=== PATIENT | female | born 1930 | race Two or more races ===

== ENCOUNTER 2019-06-22 20:54 | Inpatient (IN) | payer MEDICARE, MEDICAID ==
[~2019-06-22] VITALS: Ht 160 cm; Wt 77.1 kg
[2019-06-22] MEDS ORDERED: ACETAMINOPHEN325 M1 ORAL (21:15)
[2019-06-22] MEDS ORDERED: BISACODYL5 MG ORAL (21:15)
[2019-06-22] MEDS ORDERED: SEROQUEL25 MG ORAL (21:15)
[2019-06-22] MEDS ORDERED: MILK OF MA400 MG/51 ORAL (21:15)
[2019-06-22] MEDS ORDERED: SERTRALINE HCL50 MG ORAL (21:15)
[2019-06-22] MEDS ORDERED: DULCOLAX10 MG RC (21:15)
[2019-06-22] MEDS ORDERED: LIDODERM700 M1 TOPIC (21:15)
[2019-06-22] MEDS ORDERED: ZOFRAN4 M3 ORAL (21:15)
[2019-06-22] MEDS ORDERED: METOPROLOL TART25 MG ORAL (21:15)
[2019-06-22] MEDS ORDERED: IBUPROFEN600 MG ORAL (21:15)
[2019-06-22] MEDS ORDERED: FLOMAX0.4 MG ORAL (21:15)
[2019-06-22] MEDS ORDERED: PERCOCET 10-321 EAC1 ORAL (21:15)
[2019-06-22] MEDS ORDERED: PEPCID AC20 M2 PO (21:15)
[2019-06-22] MEDS ORDERED: FLEET ENEMA133 ML RECTAL (21:15)
[2019-06-22] MEDS ORDERED: METHADONE HCL5 MG ORAL (21:15)
[2019-06-22] MEDS ORDERED: GABAPENTIN600 MG ORAL (21:15)
[2019-06-22] MEDS ORDERED: KEPPRA XR500 MG ORAL (21:15)
[2019-06-22] MEDS ORDERED: LEVOTHYROXINE125 MCG ORAL (21:15)
--- NOTE | 2019-06-22 21:28 | Emergency Room Report ---
History of Present Illness General Chief Complaint: General Complaint Source: Patient, Medical Record Present Illness HPI Patient presents with 3 weeks of intermittent symptoms. She says when she wakes up she feels pretty good but then starts feeling dizziness. She has pain in her neck that bothers her and she takes medication for that. She also complains of left lower quadrant abdominal pain with constipation due to taking pain medication. She also has dysuria. She is denying chest pain, shortness of breath. She says she feels dizzy and weak through the day. She does smoke cigarettes and has a chronic cough. Pain in her neck is rated 10/10. The pain in her abdomen is less. It is constant. History of schizophrenia and depression. No suicidal ideation. History of COPD. History of irritable bowel syndrome. Allergies: Coded Allergies: No Known Allergies (Unverified , 06/22/19) Patient History Past Medical History: see triage record Social History: Reports: smoking Social History Narrative From retirement facility. Patient has a POLST which states DNR Reviewed Nursing Documentation: PMH: Agreed; PSxH: Agreed Nursing Documentation-PMH Hx Hypertension: Yes Hx COPD: Yes Hx Gastrointestinal Problems: Yes - IBS History Of Psychiatric Problem: Yes - SCHIZO Review of Systems All Other Systems: negative except mentioned in HPI Physical Exam Vital Signs Date Time Temp Pulse Resp B/P (MAP) Pulse Ox O2 Delivery O2 Flow Rate FiO2 06/22/19 20:52 97.9 68 16 140/70 (93) 98 Nasal Cannula Sp02 EP Interpretation: reviewed, normal General Appearance: well appearing, no apparent distress, non-toxic, obese Head: normocephalic Eyes: bilateral eye normal inspection, bilateral eye PERRL, bilateral eye EOMI ENT: moist mucus membranes Neck: supple Respiratory: lungs clear, normal breath sounds, decreased breath sounds Cardiovascular #1: regular rate, rhythm Cardiovascular #2: 2+ radial (R) Gastrointestinal: normal inspection, normal bowel sounds, no mass, non- distended, no guarding, no rebound, tenderness Genitourinary: no CVA tenderness Musculoskeletal: back normal, gait/station normal, normal range of motion Neurologic: alert, grossly normal, oriented - X2 Psychiatric: mood/affect normal Skin: no rash Medical Decision Making Diagnostic Impression: Primary Impression: Failure to thrive Qualified Codes: R62.7 - Adult failure to thrive Additional Impressions: Dehydration Chronic pain Qualified Codes: G89.29 - Other chronic pain UTI (urinary tract infection) Qualified Codes: N30.00 - Acute cystitis without hematuria Bronchospasm COPD (chronic obstructive pulmonary disease) Qualified Codes: J44.9 - Chronic obstructive pulmonary disease, unspecified Schizophrenia Qualified Codes: F20.9 - Schizophrenia, unspecified ER Course Patient presents with several problems. Is complaining about abdominal pain. Differential includes small bowel obstruction, diverticulitis, urinary tract infection, pyelonephritis, aortic aneurysm, exacerbation of back pain amongst others. Patient will be evaluated with EKG, chest x-ray, abdominal film and labs. The patient will be treated with a breathing treatment and antiemetic and analgesics. The patient will receive IV hydration. EKG bradycardia rate 57 left axis deviation right bundle branch block no acute changes. Chest x-ray no infiltrates. Abdomen right upper quadrant clips increased stool load no obstruction. White count normal. H&H most likely high. CMP remarkable for elevated CO2 and BUN. Urinalysis with pyuria. Antibiotics begun for urinary tract infection. Patient improved with treatment however still feels nauseated and unable to tolerate oral intake. Patient admitted to medical floor Dr. Barreto. Laboratory Tests Test 06/22/19 21:40 06/23/19 00:00 White Blood Count 7.6 K/UL (4.8-10.8) Red Blood Count 4.19 M/UL (4.20-5.40) L Hemoglobin 14.2 G/DL (12.0-16.0) Hematocrit 42.8 % (37.0-47.0) Mean Corpuscular Volume 102 FL (80-99) H Mean Corpuscular Hemoglobin 33.8 PG (27.0-31.0) H Mean Corpuscular Hemoglobin Concent 33.2 G/DL (32.0-36.0) Red Cell Distribution Width 11.1 % (11.6-14.8) L Platelet Count 191 K/UL (150-450) Mean Platelet Volume 6.4 FL (6.5-10.1) L Neutrophils (%) (Auto) 69.8 % (45.0-75.0) Lymphocytes (%) (Auto) 17.6 % (20.0-45.0) L Monocytes (%) (Auto) 8.8 % (1.0-10.0) Eosinophils (%) (Auto) 2.9 % (0.0-3.0) Basophils (%) (Auto) 0.9 % (0.0-2.0) Prothrombin Time 10.0 SEC (9.30-11.50) Prothrombin Time INR 0.9 (0.9-1.1) PTT 26 SEC (23-33) Sodium Level 137 MMOL/L (136-145) Potassium Level 4.9 MMOL/L (3.5-5.1) Chloride Level 100 MMOL/L (98-107) Carbon Dioxide Level 33 MMOL/L (21-32) H Anion Gap 4 mmol/L (5-15) L Blood Urea Nitrogen 29 mg/dL (7-18) H Creatinine 0.9 MG/DL (0.55-1.30) Estimate Glomerular Filtration Rate mL/min (>60) Glucose Level 117 MG/DL (74-106) H Calcium Level 9.2 MG/DL (8.5-10.1) Magnesium Level 2.1 MG/DL (1.8-2.4) Total Bilirubin 0.2 MG/DL (0.2-1.0) Aspartate Amino Transferase (AST) 11 U/L (15-37) L Alanine Aminotransferase (ALT) 14 U/L (12-78) Alkaline Phosphatase 93 U/L (46-116) Total Creatine Kinase 50 U/L (26-308) Troponin I 0.000 ng/mL (0.000-0.056) Total Protein 7.7 G/DL (6.4-8.2) Albumin 3.6 G/DL (3.4-5.0) Globulin 4.1 g/dL Albumin/Globulin Ratio 0.9 (1.0-2.7) L Lipase 129 U/L (73-393) Urine Color Pale yellow Urine Appearance Clear Urine pH 7 (4.5-8.0) Urine Specific [place] 1.010 (1.005-1.035) Urine Protein Negative (NEGATIVE) Urine Glucose (UA) Negative (NEGATIVE) Urine Ketones Negative (NEGATIVE) Urine Blood Negative (NEGATIVE) Urine Nitrite Positive (NEGATIVE) H Urine Bilirubin Negative (NEGATIVE) Urine Urobilinogen Normal MG/DL (0.0-1.0) Urine Leukocyte Esterase 1+ (NEGATIVE) H Urine RBC 0 /HPF (0 - 2) Urine WBC 5-10 /HPF (0 - 2) H Urine Squamous Epithelial Cells Few /LPF (NONE/OCC) Urine Bacteria Many /HPF (NONE) H EKG Diagnostic Results Rate: normal, bradycardiac Rhythm: NSR ST Segments: no acute changes - Left axis deviation right bundle branch block Rhythm Strip Diag. Results EP Interpretation: yes Rhythm: NSR, no PVC's, no ectopy Chest X-Ray Diagnostic Results Chest X-Ray Diagnostic Results : Chest X-Ray Ordered: Yes # of Views/Limited/Complete: 1 View Indication: Chest Pain EP Interpretation: Yes Interpretation: no consolidation, no effusion, no pneumothorax Impression: No acute disease Electronically Signed by: Electronically signed by Thomas Peralta MD Other X-Ray Diagnostic Results Other X-Ray Diagnostic Results : X-Ray ordered: Abdomen # of Views/Limited Vs Complete: 2 View Indication: Pain EP Interpretation: Yes Interpretation: nonspecific bowel gas, no sbo, other - Right upper quadrant clips and increased stool load Impression: Other Electronically Signed by: Electronically signed by Thomas Peralta MD Last Vital Signs Date Time Temp Pulse Resp B/P (MAP) Pulse Ox O2 Delivery O2 Flow Rate FiO2 06/23/19 02:30 98.0 56 17 138/60 (86) 99 06/23/19 02:30 Nasal Cannula 2.0 06/23/19 02:00 21 Status: improved Disposition: ADMITTED INPATIENT Condition: Serious Thomas Peralta MD Jun 22, 2019 21:28
[2019-06-22] MEDS ORDERED: Morphine Sulfate 4mg/ml Inj (IV USE ONLY) IVP ONE ×2 (21:30→23:00)
[2019-06-22] MEDS ORDERED: Albuterol/Ipratropium 3ml neb HHN ONE (21:30)
--- NOTE | 2019-06-22 22:00 | NUR ---
ED Nurse Note: Recieved pt BIBA dfrom SNF with c/o decreased appetite and failure to thrive, pt is in bed awake, alert and oriented x 4, pt states for past 2 weeks she has been complaining of weakness and intermittent dizziness, pt states she cant eat due to being dizzy and nausea, denies cp, sob and is able to ambulate, pt assisted to gowning and cardiac monitorign, iv line placed and labs drawn.
[2019-06-22 22:09] LABS: BASOPHILS % (AUTO) 0.9 % (0.0-2.0); EOSINOPHILS % (AUTO) 2.9 % (0.0-3.0); HEMATOCRIT 42.8 % (37.0-47.0); HEMOGLOBIN 14.2 G/DL (12.0-16.0); LYMPHOCYTES % (AUTO) 17.6 % (20.0-45.0); MEAN CORPUSCULAR VOLUME 102 FL (80-99); MONOCYTES % (AUTO) 8.8 % (1.0-10.0); NEUTROPHILS % (AUTO) 69.8 % (45.0-75.0); PLATELET COUNT 191 K/UL (150-450); RED BLOOD COUNT 4.19 M/UL (4.20-5.40); RED CELL DISTRIBUTION WIDTH 11.1 % (11.6-14.8); WHITE BLOOD COUNT 7.6 K/UL (4.8-10.8)
[2019-06-22 22:19] LABS: INR 0.9 (0.9-1.1)
[2019-06-22 22:20] LABS: ANION GAP 4 mmol/L (5-15); BLOOD UREA NITROGEN 29 mg/dL (7-18); CALCIUM 9.2 MG/DL (8.5-10.1); CARBON DIOXIDE 33 MMOL/L (21-32); CHLORIDE 100 MMOL/L (98-107); CREATININE 0.9 MG/DL (0.55-1.30); POTASSIUM 4.9 MMOL/L (3.5-5.1); SODIUM 137 MMOL/L (136-145)
[2019-06-22 22:24] LABS: ALANINE AMINOTRANSFERASE 14 U/L (12-78); ALBUMIN 3.6 G/DL (3.4-5.0); ALBUMIN/GLOBULIN RATIO 0.9 (1.0-2.7); ALKALINE PHOSPHATASE 93 U/L (46-116); ASPARTATE AMINO TRANSFERASE 11 U/L (15-37); BILIRUBIN,TOTAL 0.2 MG/DL (0.2-1.0); CREATINE KINASE 50 U/L (26-308)
[2019-06-22 23:00] VITALS: BP 144/76
[2019-06-22] MEDS ORDERED: LORazepam Inj 2mg/ml 1ml IV ONE (23:00)
[2019-06-23] VITALS (8 sets, daily range): BP systolic 123–186; BP diastolic 53–95
--- NOTE | 2019-06-23 | NUR ---
ED Nurse Note: MEDS GIVEN FOR PAIN EFFECTIVE, PT SLEEPING, AROUSES EASILY TO VERBAL STIMULI, DENIES CP OR ANY PAIN, PT ASSISTED WITH BEDPAN, UN-SUCCESSFUL, STATES HAS URGE BUT CAN NOT GO, PT STRAIGHT CATH FOR URINE SAMPLE, TOLERATED WELL, NO BLEEDING OR RESISITANCE NOTED, MD AWARE, WILL CONTINUE TO CLOSELY MONITOR AND PREPARE FOR HOSPITAL ADMISSION.
[2019-06-23 00:32] LABS: APPEARANCE,URINE CLEAR; BILIRUBIN, URINE NEGATIVE (NEGATIVE); COLOR,URINE PALE YELLOW; GLUCOSE, URINE (UA) NEGATIVE (NEGATIVE); KETONES,URINE NEGATIVE (NEGATIVE); LEUKOCYTE ESTERASE ,URINE 1+ (NEGATIVE); NITRITE,URINE POSITIVE (NEGATIVE); PH,URINE 7 (4.5-8.0); PROTEIN,URINE NEGATIVE (NEGATIVE); UROBILINOGEN,URINE NORMAL MG/DL (0.0-1.0)
--- NOTE | 2019-06-23 01:35 | NUR ---
ED Nurse Note: PT HAS ROOM FOR ADMISSION, REPORT CALLED TO FLOOR NURSE RAJINDER LEYVA, PT RESTING QUIETLY IN BED, IV SITE PATENT WITH ROCEPHIN INFUSING VIA PUMP, PT DENIES PAIN, NO SOB OR LABORED BREATHING, NOTED, PT GBEING TAKEN TO UNIT VIA GURNEY WITH [facility], NAD NOTED DURING PT TRANSPORT.
[2019-06-23] MEDS ORDERED: cefTRIAXone 1 GM in D5W 55 ML IVPB ONE (01:45)
--- NOTE | 2019-06-23 02:30 | NUR ---
NURSE NOTES: Patient admitted from ED aox4. On o2 via NC. Belongings verified at bedside, patient with ledezma and credit card and cellphone but patient refused to put them in the safe for safekeeping. Explained to patient responsibility and liability; still continues to refuse. Belongings signed by patient. Oriented to new room and unit. Ceftriaxone continues to infuse from ED. Call light provided. Will monitor.
[2019-06-23] MEDS ORDERED: HUMULIN N100 UNIT/4 SQ (02:46)
[2019-06-23] MEDS ORDERED: PERCOCET 10-321 EAC1 ORAL (02:46)
[2019-06-23] MEDS ORDERED: FLEET ENEMA133 ML RECTAL (02:46)
[2019-06-23] MEDS ORDERED: DOCUSATE SODIU250 MG ORAL (02:46)
[2019-06-23] MEDS ORDERED: PEPTO-BISM525 MG/15 PO (02:46)
[2019-06-23] MEDS ORDERED: SYNTHROID25 MCG ORAL (02:46)
--- NOTE | 2019-06-23 03:12 | NUR ---
NURSE NOTES: Dr. Barreto paged for admission orders. Addendum: 06/23/19 at 0344 by AUTUMN PALOMARES RN RN 2nd call placed to Dr. Barreto's exchange for admission orders. Addendum: 06/23/19 at 2690 by AUTUMN PALOMARES RN RN 3rd call placed to Dr. Barreto's exchange. Awaiting call back.
--- NOTE | 2019-06-23 04:55 | NUR ---
NURSE NOTES: Received partial admission orders from Dr. Barreto. Per Dr. aBrreto, contact Dr. Hendrix for the rest. Left message to Dr. Hendrix for further orders.
[2019-06-23] MEDS ORDERED: Fleet's Enema 133ml RECTAL PRN (05:00)
[2019-06-23] MEDS ORDERED: Milk of Magnesia 30ml Ud ORAL PRN (05:00)
[2019-06-23] MEDS ORDERED: Bismuth Subsalicylate 30ml ORAL PRN (05:00)
[2019-06-23] MEDS ORDERED: Morphine Sulfate 2mg/ml Inj(IV/IM USE ONLY) IVP PRN (05:00)
[2019-06-23] MEDS: Levothyroxine 25mcg tab ORAL SCH (06:25)
[2019-06-23] MEDS: NovoLOG Insulin Flexpen SUBQ SCH ×5 (06:26→21:00)
--- NOTE | 2019-06-23 07:34 | NUR ---
HAND-OFF: Report given to Jerilyn CALVILLO.
--- NOTE | 2019-06-23 07:40 | NUR ---
NURSE NOTES: Patient received in stable condition, sleeping in bed. No signs of apparent distress observed. Bed locked in lowest position, call light placed within reach. Will continue to monitor.
[2019-06-23] MEDS: Metoprolol 25mg tab ORAL SCH ×2 (08:51→17:20)
[2019-06-23] MEDS: Docusate 250mg cap ORAL SCH ×2 (08:51→17:19)
[2019-06-23] MEDS: Sertraline 50mg tab ORAL SCH (08:52)
[2019-06-23] MEDS: Tamsulosin 0.4mg cap ORAL SCH ×2 (08:52→17:19)
[2019-06-23 08:58] LABS: ANION GAP 6 mmol/L (5-15); BLOOD UREA NITROGEN 24 mg/dL (7-18); CALCIUM 9.3 MG/DL (8.5-10.1); CARBON DIOXIDE 29 MMOL/L (21-32); CHLORIDE 104 MMOL/L (98-107); CREATININE 0.8 MG/DL (0.55-1.30); SODIUM 139 MMOL/L (136-145)
[2019-06-23 09:10] LABS: BASOPHILS % (AUTO) 0.8 % (0.0-2.0); EOSINOPHILS % (AUTO) 2.1 % (0.0-3.0); HEMATOCRIT 40.9 % (37.0-47.0); HEMOGLOBIN 13.8 G/DL (12.0-16.0); LYMPHOCYTES % (AUTO) 11.3 % (20.0-45.0); MEAN CORPUSCULAR VOLUME 102 FL (80-99); MONOCYTES % (AUTO) 7.2 % (1.0-10.0); NEUTROPHILS % (AUTO) 78.7 % (45.0-75.0); PLATELET COUNT 169 K/UL (150-450); RED BLOOD COUNT 4.01 M/UL (4.20-5.40); RED CELL DISTRIBUTION WIDTH 11.4 % (11.6-14.8); WHITE BLOOD COUNT 9.5 K/UL (4.8-10.8)
--- NOTE | 2019-06-23 11:16 | Diagnostic Imaging Report ---
Indication: Chest and abdominal pain Comparison: None A single view chest radiograph was obtained. Findings: There is suggestion of mild bronchial wall thickening. There is no consolidation or evidence of pneumonia. The left hemidiaphragm is slightly elevated. Bones are osteopenic. Heart size is normal. IMPRESSION: No acute findings. Bronchitis suspected. Osteopenia
--- NOTE | 2019-06-23 11:17 | Diagnostic Imaging Report ---
Indication: Abdominal pain Comparison: None Single view of the abdomen obtained Findings: There is a moderate amount of fecal retention within the colon. Bowel gas pattern is nonspecific. There are cholecystectomy clips in the right upper quadrant of the abdomen. The bones are osteopenic. There are moderate degenerative changes of the thoracic and lumbar spine characterized by narrowing of intervertebral discs, endplate and facet sclerosis and osteophytes. IMPRESSION: No acute findings. Moderate colonic stool retention.
--- NOTE | 2019-06-23 11:31 | GI Initial Consult Note ---
History of Present Illness General Date patient seen: Jun 23, 2019 Time patient seen: 12:09 Reason for Hospitalization: General Complaint Referring physician: RICKY FORD Reason for Consultation: ABDOMINAL PAIN Present Illness HPI Patient presents with 3 weeks of intermittent symptoms. She says when she wakes up she feels pretty good but then starts feeling dizziness. She has pain in her neck that bothers her and she takes medication for that. She also complains of left lower quadrant abdominal pain with constipation due to taking pain medication. She also has dysuria. She is denying chest pain, shortness of breath. She says she feels dizzy and weak through the day. She does smoke cigarettes and has a chronic cough. Pain in her neck is rated 10/10. The pain in her abdomen is less. It is constant. History of schizophrenia and depression. No suicidal ideation. History of COPD. History of irritable bowel syndrome. GI consulted for abdominal pain. ROS limited at this time, patient refusing to answer questions. Patient states she wants her pain medication. Patient was seen, awake alert no apparent distress. KUB shows stool within the colon. Labs reviewed; no leukocytosis, no anemia, no transaminitis. Unknown history of endoscopic colonoscopy at this time. Home Meds Reported Medications Oxycodone HCl/Acetaminophen (Percocet 10-325 mg Tablet) 1 Each Tablet, 1 TAB ORAL QID PRN for For Pain, #10 TAB 0 Refills 06/23/19 Bismuth Subsalicylate (PEPTO-BISMOL) 525 Mg/15 Ml Oral.susp, 525 MG PO Q1HR PRN for upset stomach, ML 06/23/19 Na Phos,M-B/Na Phos,Di-Ba* (FLEET ENEMA*) 133 Ml Enema, 133 ML RECTAL DAILY PRN for Constipation, ML 0 Refills 06/23/19 Levothyroxine Sodium* (SYNTHROID*) 25 Mcg Tablet, 25 MCG ORAL DAILY, TAB Take in the morning on an empty stomach, at least 30 minutes before food. 06/23/19 Docusate Sodium* (DOCUSATE SODIUM*) 250 Mg Capsule, 250 MG ORAL TWICE A DAY, CAP 06/23/19 NPH, Human Insulin Isophane (Humulin N Kwikpen) 100 Unit/1 Ml Insuln.pen, UNIT SQ AC+HS, EA 06/23/19 Ibuprofen* (MOTRIN*) 600 Mg Tablet, 600 MG ORAL Q6H PRN for Moderate Pain (Pain Scale 4-6), #20 TAB 0 Refills 06/22/19 Oxycodone HCl/Acetaminophen (Percocet 10-325 mg Tablet) 1 Each Tablet, 1 TAB ORAL Q4H PRN for Breakthrough Pain, #10 TAB 0 Refills 06/22/19 Acetaminophen* (ACETAMINOPHEN 325MG TABLET*) 325 Mg Tablet, 650 MG ORAL Q4H PRN for Mild Pain/Temp > 100.5, TAB 06/22/19 Bisacodyl (DULCOLAX) 10 Mg Supp.rect, 10 MG RC DAILY PRN for Constipation, SUPP 06/22/19 Magnesium Hydroxide* (MILK OF MAGNESIA*) 400 Mg/5 Ml Oral.susp, 30 ML ORAL DAILY PRN for Constipation, ML 06/22/19 Ondansetron* (ZOFRAN*) 4 Mg Tablet, 4 MG ORAL Q8HR PRN for Nausea & Vomiting, TAB 06/22/19 Lidocaine Patch* (Lidoderm Patch*) 1 Each Adh..patch, 1 PATCH TOPIC DAILY, #7 PATCH 0 Refills Patch(es) may remain in place for up to 12 hours in any 24-hour period. Apply to lower back 06/22/19 Levetiracetam (KEPPRA XR) 500 Mg Tab.er.24h, 500 MG ORAL Q12HR, #30 TAB 0 Refills 06/22/19 Metoprolol Tartrate* (METOPROLOL TARTRATE*) 25 Mg Tablet, 25 MG ORAL BID, TAB BID with meals Hold if SBP<110 or HR<60 06/22/19 Famotidine (PEPCID AC) 20 Mg Tablet, 20 MG PO HS, TAB 06/22/19 Methadone Hcl* (METHADONE*) 5 Mg Tablet, 5 MG ORAL Q12HR, #3 TAB 0 Refills 06/22/19 Tamsulosin HCl (Flomax) 0.4 Mg Cap.er.24h, 0.4 MG ORAL BID, CAP 06/22/19 Sertraline Hcl* (ZOLOFT*) 50 Mg Tablet, 50 MG ORAL DAILY, TAB 06/22/19 Gabapentin* (GABAPENTIN*) 600 Mg Tablet, 600 MG ORAL Q8HR, TAB 06/22/19 Quetiapine Fumarate* (SEROQUEL*) 25 Mg Tablet, 50 MG ORAL TWICE A DAY, TAB 06/22/19 Bisacodyl* (DULCOLAX*) 5 Mg Tablet.dr, 5 MG ORAL DAILY PRN for Constipation, # 10 TAB 0 Refills 06/22/19 Med list reviewed/reconciled: Yes Allergies: Coded Allergies: No Known Allergies (Unverified , 06/22/19) Patient History Limited by: other - refusing to answer questions History Provided By: Patient, Medical Record Review of Systems All Other Systems: limited Physical Exam Vital Signs Date Time Temp Pulse Resp B/P (MAP) Pulse Ox O2 Delivery O2 Flow Rate FiO2 06/22/19 20:52 97.9 68 16 140/70 (93) 98 Nasal Cannula 06/22/19 21:41 21 06/23/19 02:30 2.0 Sp02 EP Interpretation: reviewed, normal Labs Laboratory Tests Test 06/22/19 21:40 06/23/19 00:00 06/23/19 08:10 White Blood Count 7.6 K/UL (4.8-10.8) 9.5 K/UL (4.8-10.8) Red Blood Count 4.19 M/UL (4.20-5.40) L 4.01 M/UL (4.20-5.40) L Hemoglobin 14.2 G/DL (12.0-16.0) 13.8 G/DL (12.0-16.0) Hematocrit 42.8 % (37.0-47.0) 40.9 % (37.0-47.0) Mean Corpuscular Volume 102 FL (80-99) H 102 FL (80-99) H Mean Corpuscular Hemoglobin 33.8 PG (27.0-31.0) H 34.5 PG (27.0-31.0) H Mean Corpuscular Hemoglobin Concent 33.2 G/DL (32.0-36.0) 33.8 G/DL (32.0-36.0) Red Cell Distribution Width 11.1 % (11.6-14.8) L 11.4 % (11.6-14.8) L Platelet Count 191 K/UL (150-450) 169 K/UL (150-450) Mean Platelet Volume 6.4 FL (6.5-10.1) L 6.0 FL (6.5-10.1) L Neutrophils (%) (Auto) 69.8 % (45.0-75.0) 78.7 % (45.0-75.0) H Lymphocytes (%) (Auto) 17.6 % (20.0-45.0) L 11.3 % (20.0-45.0) L Monocytes (%) (Auto) 8.8 % (1.0-10.0) 7.2 % (1.0-10.0) Eosinophils (%) (Auto) 2.9 % (0.0-3.0) 2.1 % (0.0-3.0) Basophils (%) (Auto) 0.9 % (0.0-2.0) 0.8 % (0.0-2.0) Prothrombin Time 10.0 SEC (9.30-11.50) Prothromb Time International Ratio 0.9 (0.9-1.1) Activated Partial Thromboplast Time 26 SEC (23-33) Sodium Level 137 MMOL/L (136-145) 139 MMOL/L (136-145) Potassium Level 4.9 MMOL/L (3.5-5.1) 5.0 MMOL/L (3.5-5.1) Chloride Level 100 MMOL/L (98-107) 104 MMOL/L (98-107) Carbon Dioxide Level 33 MMOL/L (21-32) H 29 MMOL/L (21-32) Anion Gap 4 mmol/L (5-15) L 6 mmol/L (5-15) Blood Urea Nitrogen 29 mg/dL (7-18) H 24 mg/dL (7-18) H Creatinine 0.9 MG/DL (0.55-1.30) 0.8 MG/DL (0.55-1.30) Estimat Glomerular Filtration Rate mL/min (>60) mL/min (>60) Glucose Level 117 MG/DL (74-106) H 118 MG/DL (74-106) H Calcium Level 9.2 MG/DL (8.5-10.1) 9.3 MG/DL (8.5-10.1) Magnesium Level 2.1 MG/DL (1.8-2.4) Total Bilirubin 0.2 MG/DL (0.2-1.0) Aspartate Amino Transf (AST/SGOT) 11 U/L (15-37) L Alanine Aminotransferase (ALT/SGPT) 14 U/L (12-78) Alkaline Phosphatase 93 U/L (46-116) Total Creatine Kinase 50 U/L (26-308) Troponin I 0.000 ng/mL (0.000-0.056) Total Protein 7.7 G/DL (6.4-8.2) Albumin 3.6 G/DL (3.4-5.0) Globulin 4.1 g/dL Albumin/Globulin Ratio 0.9 (1.0-2.7) L Lipase 129 U/L (73-393) Urine Color Pale yellow Urine Appearance Clear Urine pH 7 (4.5-8.0) Urine Specific [place] 1.010 (1.005-1.035) Urine Protein Negative (NEGATIVE) Urine Glucose (UA) Negative (NEGATIVE) Urine Ketones Negative (NEGATIVE) Urine Blood Negative (NEGATIVE) Urine Nitrite Positive (NEGATIVE) H Urine Bilirubin Negative (NEGATIVE) Urine Urobilinogen Normal MG/DL (0.0-1.0) Urine Leukocyte Esterase 1+ (NEGATIVE) H Urine RBC 0 /HPF (0 - 2) Urine WBC 5-10 /HPF (0 - 2) H Urine Squamous Epithelial Cells Few /LPF (NONE/OCC) Urine Bacteria Many /HPF (NONE) H General Appearance: well appearing, no apparent distress, alert Head: normocephalic EENT: PERRL/EOMI, normal ENT inspection Neck: supple Respiratory: normal breath sounds, no respiratory distress Cardiovascular: normal rate Gastrointestinal: normal inspection, non tender, soft, normal bowel sounds, non -distended Rectal: deferred Genitourinary: no CVA tenderness Musculoskeletal: normal inspection, back normal Neurologic: normal inspection, alert, oriented x3, responsive Psychiatric: normal inspection, judgement/insight normal, memory normal Skin: normal inspection, normal color, no rash, warm/dry, palpation normal, well hydrated Lymphatic: normal inspection, no adenopathy Current Medications Current Medications Medications (Trade) Dose Ordered Sig/Nay Route PRN Reason Start Time Stop Time Status Last Admin Dose Admin Acetaminophen (Tylenol) 650 mg Q4H PRN ORAL Mild Pain/Temp > 100.5 06/23/19 05:00 07/23/19 04:59 Bisacodyl (Dulcolax) 5 mg DAILY PRN ORAL Constipation 06/23/19 05:00 07/23/19 04:59 Bisacodyl (Dulcolax) 10 mg DAILY PRN RECTAL Constipation 06/23/19 05:00 07/23/19 04:59 Bismuth Subsalicylate (Pepto-Bismol) 30 ml Q1H PRN ORAL upset stomach 06/23/19 06:30 07/23/19 04:59 Dextrose (Dextrose 50%) 25 ml Q30M PRN IV Hypoglycemia 06/23/19 06:15 07/23/19 06:14 Dextrose (Dextrose 50%) 50 ml Q30M PRN IV Hypoglycemia 06/23/19 06:15 07/23/19 06:14 Docusate Sodium (Colace) 250 mg TWICE A DAY ORAL 06/23/19 09:00 07/23/19 08:59 06/23/19 08:51 Famotidine (Pepcid) 20 mg QHS ORAL 06/23/19 21:00 07/23/19 20:59 Gabapentin (Neurontin) 600 mg Q12HR ORAL 06/23/19 09:00 07/23/19 05:59 06/23/19 08:51 Ibuprofen (Motrin) 600 mg Q6H PRN ORAL Moderate Pain (Pain Scale 4-6) 06/23/19 05:00 07/23/19 04:59 Insulin Aspart (NovoLOG) BEFORE MEALS AND HS SUBQ 06/23/19 06:30 07/23/19 06:29 Levetiracetam (Keppra) 500 mg Q12HR ORAL 06/23/19 09:00 07/23/19 08:59 06/23/19 08:52 Levothyroxine Sodium (Synthroid) 25 mcg ACBREAKFAST ORAL 06/23/19 06:30 07/23/19 06:29 06/23/19 06:25 Lidocaine (Lidoderm 5% PATCH) 1 patch DAILY TDERMAL 06/23/19 09:00 07/23/19 08:59 06/23/19 08:52 Magnesium Hydroxide (Mom) 30 ml DAILY PRN ORAL Constipation 06/23/19 05:00 07/23/19 04:59 Methadone HCl (Methadone HCl) 5 mg Q12HR ORAL 06/23/19 09:00 06/30/19 08:59 06/23/19 08:52 Metoprolol Tartrate (Lopressor) 25 mg BID ORAL 06/23/19 09:00 07/23/19 08:59 06/23/19 08:51 Morphine Sulfate (Morphine Sulfate) 2 mg Q4H PRN IVP Severe Pain (Pain Scale 7-10) 06/23/19 05:00 06/30/19 04:59 Ondansetron HCl (Zofran) 4 mg Q8H PRN ORAL Nausea & Vomiting 06/23/19 05:00 07/23/19 04:59 Oxycodone/ Acetaminophen (Percocet 10/325) 1 tab Q4H PRN ORAL Breakthrough Pain 06/23/19 05:00 06/30/19 04:59 06/23/19 09:47 Oxycodone/ Acetaminophen (Percocet 10/325) 1 tab QID PRN ORAL Severe Pain (Pain Scale 7-10) 06/23/19 05:30 06/30/19 05:29 Quetiapine Fumarate (SEROquel) 50 mg TWICE A DAY ORAL 06/23/19 09:00 07/23/19 08:59 06/23/19 08:51 Sertraline HCl (Zoloft) 50 mg DAILY ORAL 06/23/19 09:00 07/23/19 08:59 06/23/19 08:52 Sodium Phosphate (Fleet's Sodium Phosl Enema) 133 ml DAILY PRN RECTAL Constipation 06/23/19 05:00 07/23/19 04:59 Tamsulosin HCl (Flomax) 0.4 mg BID ORAL 06/23/19 09:00 07/23/19 08:59 06/23/19 08:52 GI: Plan Problems: (1) Abdominal pain (2) Constipation (3) Therapeutic opioid-induced constipation (OIC) (4) Schizophrenia (5) Chronic pain Plan Advance diet as tolerated Pain management Begin bowel regimen of Colace plus MiraLAX Consider Senokot if has persistent constipation PPI Zofran as needed Follow labs Patient may benefit from a non formulary opioid induced constipation medication as an outpatient such as Movantik or Relistor. Discussed with Dr. Rangel. Thank you for this patient referral, we will follow. The patient was seen and examined at bedside and all new and available data was reviewed in the patients chart. I agree with the above findings, impression and plan. (Patient seen earlier today. Signature stamp does not reflect patient encounter time.). - MD Teena VerduzcoHonorhealth Deer Valley Medical CenterMeñoVishal ZAMZAM Jun 23, 2019 11:31
--- NOTE | 2019-06-23 11:58 | NUR ---
RD ASSESSMENT & RECOMMENDATIONS SEE CARE ACTIVITY FOR COMPLETE ASSESSMENT DAILY ESTIMATED NEEDS: Needs based on Cardiac, DM 58.5kg adj 25-30 kcals/kg 8759-4725 total kcals 1-1.5 g protein/kg 59-88 g total protein 20-25 mL/kg [id number] total fluid mLs NUTRITION DIAGNOSIS: Suspected chewing or swallowing difficulty r/t dysphagia as evidenced by pt on [facility] soft chopped texture diet CURRENT DIET: CCHO MED, chopped PO DIET RECOMMENDATIONS: Cardiac/ CCHO LOW diet (texture per SOYBEAN GROWER) ADDITIONAL RECOMMENDATIONS: 1) SOYBEAN GROWER eval for appropriate texture 2) W<75% intake, rec Glucerna 1 tetra cristal BID in b/w meals 3) Consider Kcal count for eval 4) A1C for eval 5) Calibrated bed scale wt
--- NOTE | 2019-06-23 12:08 | Consultation ---
History of Present Illness General Date patient seen: Jun 23, 2019 Chief Complaint: General Complaint Reason for Consultation: inpatient management Present Illness HPI 89 year old female with history of schizophrenia and depression, COPD. irritable bowel syndrome presented to ER with cc of dizziness, pain in her neck, She also complains of left lower quadrant abdominal pain with constipation due to taking pain medication. She also has dysuria. She says she feels dizzy and weak through the day. She does smoke cigarettes and has a chronic cough. She is denying chest pain, shortness of breath. She is admitted for further management. Allergies: Coded Allergies: No Known Allergies (Unverified , 06/22/19) Medication History Scheduled Docusate Sodium* (Docusate Sodium*), 250 MG ORAL TWICE A DAY, (Reported) Famotidine (Pepcid Ac), 20 MG PO HS, (Reported) Gabapentin* (Gabapentin*), 600 MG ORAL Q8HR, (Reported) Levetiracetam (Keppra Xr), 500 MG ORAL Q12HR, (Reported) Levothyroxine Sodium* (Synthroid*), 25 MCG ORAL DAILY, (Reported) Lidocaine Patch* (Lidoderm Patch*), 1 PATCH TOPIC DAILY, (Reported) Methadone Hcl* (Methadone*), 5 MG ORAL Q12HR, (Reported) Metoprolol Tartrate* (Metoprolol Tartrate*), 25 MG ORAL BID, (Reported) NPH, Human Insulin Isophane (Humulin N Kwikpen), UNIT SQ AC+HS, (Reported) Quetiapine Fumarate* (Seroquel*), 50 MG ORAL TWICE A DAY, (Reported) Sertraline Hcl* (Zoloft*), 50 MG ORAL DAILY, (Reported) Tamsulosin HCl (Flomax), 0.4 MG ORAL BID, (Reported) Scheduled PRN Acetaminophen* (Acetaminophen 325MG Tablet*), 650 MG ORAL Q4H PRN for Mild Pain/ Temp > 100.5, (Reported) Bisacodyl (Dulcolax), 10 MG RC DAILY PRN for Constipation, (Reported) Bisacodyl* (Dulcolax*), 5 MG ORAL DAILY PRN for Constipation, (Reported) Bismuth Subsalicylate (Pepto-Bismol), 525 MG PO Q1HR PRN for upset stomach, ( Reported) Ibuprofen* (Motrin*), 600 MG ORAL Q6H PRN for Moderate Pain (Pain Scale 4-6), ( Reported) Magnesium Hydroxide* (Milk Of Magnesia*), 30 ML ORAL DAILY PRN for Constipation, (Reported) Na Phos,M-B/Na Phos,Di-Ba* (Fleet Enema*), 133 ML RECTAL DAILY PRN for Constipation, (Reported) Ondansetron* (Zofran*), 4 MG ORAL Q8HR PRN for Nausea & Vomiting, (Reported) Oxycodone HCl/Acetaminophen (Percocet 10-325 mg Tablet), 1 TAB ORAL Q4H PRN for Breakthrough Pain, (Reported) Oxycodone HCl/Acetaminophen (Percocet 10-325 mg Tablet), 1 TAB ORAL QID PRN for For Pain, (Reported) Patient History Healthcare decision maker Resuscitation status Advanced Directive on File Past Medical/Surgical History Past Medical/Surgical History: (1) Hypothyroidism (2) Chronic pain (3) COPD (chronic obstructive pulmonary disease) Review of Systems All Other Systems: negative except mentioned in HPI Physical Exam General Appearance: WD/WN Lines, tubes and drains: peripheral HEENT: normocephalic, atraumatic, anicteric Neck: non-tender, normal alignment Respiratory/Chest: chest wall non-tender, no respiratory distress Abdomen: normal bowel sounds Genitourinary/Rectal: normal genital exam Last 24 Hour Vital Signs Date Time Temp Pulse Resp B/P (MAP) Pulse Ox O2 Delivery O2 Flow Rate FiO2 06/23/19 08:51 51 148/53 06/23/19 08:00 98.1 55 19 166/68 (100) 98 06/23/19 06:30 148/53 (84) 06/23/19 04:00 97.5 51 17 164/58 (93) 95 06/23/19 02:30 98.0 56 17 138/60 (86) 99 06/23/19 02:30 Nasal Cannula 2.0 06/23/19 02:00 98.5 56 18 123/54 98 Room Air 21 06/23/19 00:30 98.5 56 18 123/54 98 Room Air 21 06/22/19 23:00 98.5 57 18 144/76 98 Room Air 21 9/16/19 22:48 97.8 06/22/19 22:48 97.8 06/22/19 21:54 57 18 98 Room Air 21 06/22/19 21:45 57 18 Room Air 21 06/22/19 21:43 57 18 97 06/22/19 21:41 57 18 97 Room Air 21 06/22/19 20:52 97.9 68 16 140/70 (93) 98 Nasal Cannula Intake and Output 06/22/19 06/23/19 19:00 07:00 Intake Total 100 ml Output Total 200 ml Balance -100 ml Intake Oral 100 ml Output Urine Total 200 ml # Voids 3 Laboratory Tests Test 06/22/19 21:40 06/23/19 00:00 06/23/19 08:10 White Blood Count 7.6 K/UL (4.8-10.8) 9.5 K/UL (4.8-10.8) Red Blood Count 4.19 M/UL (4.20-5.40) L 4.01 M/UL (4.20-5.40) L Hemoglobin 14.2 G/DL (12.0-16.0) 13.8 G/DL (12.0-16.0) Hematocrit 42.8 % (37.0-47.0) 40.9 % (37.0-47.0) Mean Corpuscular Volume 102 FL (80-99) H 102 FL (80-99) H Mean Corpuscular Hemoglobin 33.8 PG (27.0-31.0) H 34.5 PG (27.0-31.0) H Mean Corpuscular Hemoglobin Concent 33.2 G/DL (32.0-36.0) 33.8 G/DL (32.0-36.0) Red Cell Distribution Width 11.1 % (11.6-14.8) L 11.4 % (11.6-14.8) L Platelet Count 191 K/UL (150-450) 169 K/UL (150-450) Mean Platelet Volume 6.4 FL (6.5-10.1) L 6.0 FL (6.5-10.1) L Neutrophils (%) (Auto) 69.8 % (45.0-75.0) 78.7 % (45.0-75.0) H Lymphocytes (%) (Auto) 17.6 % (20.0-45.0) L 11.3 % (20.0-45.0) L Monocytes (%) (Auto) 8.8 % (1.0-10.0) 7.2 % (1.0-10.0) Eosinophils (%) (Auto) 2.9 % (0.0-3.0) 2.1 % (0.0-3.0) Basophils (%) (Auto) 0.9 % (0.0-2.0) 0.8 % (0.0-2.0) Prothrombin Time 10.0 SEC (9.30-11.50) Prothromb Time International Ratio 0.9 (0.9-1.1) Activated Partial Thromboplast Time 26 SEC (23-33) Sodium Level 137 MMOL/L (136-145) 139 MMOL/L (136-145) Potassium Level 4.9 MMOL/L (3.5-5.1) 5.0 MMOL/L (3.5-5.1) Chloride Level 100 MMOL/L (98-107) 104 MMOL/L (98-107) Carbon Dioxide Level 33 MMOL/L (21-32) H 29 MMOL/L (21-32) Anion Gap 4 mmol/L (5-15) L 6 mmol/L (5-15) Blood Urea Nitrogen 29 mg/dL (7-18) H 24 mg/dL (7-18) H Creatinine 0.9 MG/DL (0.55-1.30) 0.8 MG/DL (0.55-1.30) Estimat Glomerular Filtration Rate mL/min (>60) mL/min (>60) Glucose Level 117 MG/DL (74-106) H 118 MG/DL (74-106) H Calcium Level 9.2 MG/DL (8.5-10.1) 9.3 MG/DL (8.5-10.1) Magnesium Level 2.1 MG/DL (1.8-2.4) Total Bilirubin 0.2 MG/DL (0.2-1.0) Aspartate Amino Transf (AST/SGOT) 11 U/L (15-37) L Alanine Aminotransferase (ALT/SGPT) 14 U/L (12-78) Alkaline Phosphatase 93 U/L (46-116) Total Creatine Kinase 50 U/L (26-308) Troponin I 0.000 ng/mL (0.000-0.056) Total Protein 7.7 G/DL (6.4-8.2) Albumin 3.6 G/DL (3.4-5.0) Globulin 4.1 g/dL Albumin/Globulin Ratio 0.9 (1.0-2.7) L Lipase 129 U/L (73-393) Urine Color Pale yellow Urine Appearance Clear Urine pH 7 (4.5-8.0) Urine Specific [place] 1.010 (1.005-1.035) Urine Protein Negative (NEGATIVE) Urine Glucose (UA) Negative (NEGATIVE) Urine Ketones Negative (NEGATIVE) Urine Blood Negative (NEGATIVE) Urine Nitrite Positive (NEGATIVE) H Urine Bilirubin Negative (NEGATIVE) Urine Urobilinogen Normal MG/DL (0.0-1.0) Urine Leukocyte Esterase 1+ (NEGATIVE) H Urine RBC 0 /HPF (0 - 2) Urine WBC 5-10 /HPF (0 - 2) H Urine Squamous Epithelial Cells Few /LPF (NONE/OCC) Urine Bacteria Many /HPF (NONE) H Height (Feet): 5 Height (Inches): 3.00 Weight (Pounds): 170 Medications Current Medications Medications (Trade) Dose Ordered Sig/Nay Route PRN Reason Start Time Stop Time Status Last Admin Dose Admin Acetaminophen (Tylenol) 650 mg Q4H PRN ORAL Mild Pain/Temp > 100.5 06/23/19 05:00 07/23/19 04:59 Bisacodyl (Dulcolax) 5 mg DAILY PRN ORAL Constipation 06/23/19 05:00 07/23/19 04:59 Bisacodyl (Dulcolax) 10 mg DAILY PRN RECTAL Constipation 06/23/19 05:00 07/23/19 04:59 Bismuth Subsalicylate (Pepto-Bismol) 30 ml Q1H PRN ORAL upset stomach 06/23/19 06:30 07/23/19 04:59 Dextrose (Dextrose 50%) 25 ml Q30M PRN IV Hypoglycemia 06/23/19 06:15 07/23/19 06:14 Dextrose (Dextrose 50%) 50 ml Q30M PRN IV Hypoglycemia 06/23/19 06:15 07/23/19 06:14 Docusate Sodium (Colace) 250 mg TWICE A DAY ORAL 06/23/19 09:00 07/23/19 08:59 06/23/19 08:51 Famotidine (Pepcid) 20 mg QHS ORAL 06/23/19 21:00 07/23/19 20:59 Gabapentin (Neurontin) 600 mg Q12HR ORAL 06/23/19 09:00 07/23/19 05:59 06/23/19 08:51 Ibuprofen (Motrin) 600 mg Q6H PRN ORAL Moderate Pain (Pain Scale 4-6) 06/23/19 05:00 07/23/19 04:59 Insulin Aspart (NovoLOG) BEFORE MEALS AND HS SUBQ 06/23/19 06:30 07/23/19 06:29 Levetiracetam (Keppra) 500 mg Q12HR ORAL 06/23/19 09:00 07/23/19 08:59 06/23/19 08:52 Levothyroxine Sodium (Synthroid) 25 mcg ACBREAKFAST ORAL 06/23/19 06:30 07/23/19 06:29 06/23/19 06:25 Lidocaine (Lidoderm 5% PATCH) 1 patch DAILY TDERMAL 06/23/19 09:00 07/23/19 08:59 06/23/19 08:52 Magnesium Hydroxide (Mom) 30 ml DAILY PRN ORAL Constipation 06/23/19 05:00 07/23/19 04:59 Methadone HCl (Methadone HCl) 5 mg Q12HR ORAL 06/23/19 09:00 06/30/19 08:59 06/23/19 08:52 Metoprolol Tartrate (Lopressor) 25 mg BID ORAL 06/23/19 09:00 07/23/19 08:59 06/23/19 08:51 Morphine Sulfate (Morphine Sulfate) 2 mg Q4H PRN IVP Severe Pain (Pain Scale 7-10) 06/23/19 05:00 06/30/19 04:59 Ondansetron HCl (Zofran) 4 mg Q8H PRN ORAL Nausea & Vomiting 06/23/19 05:00 07/23/19 04:59 Oxycodone/ Acetaminophen (Percocet 10/325) 1 tab Q4H PRN ORAL Breakthrough Pain 06/23/19 05:00 06/30/19 04:59 06/23/19 09:47 Oxycodone/ Acetaminophen (Percocet ) 1 tab QID PRN ORAL Severe Pain (Pain Scale 7-10) 06/23/19 05:30 06/30/19 05:29 Phenazopyridine HCl (Pyridium) 100 mg THREE TIMES A DAY ORAL 06/23/19 13:00 07/23/19 12:59 UNV Quetiapine Fumarate (SEROquel) 50 mg TWICE A DAY ORAL 06/23/19 09:00 07/23/19 08:59 06/23/19 08:51 Sertraline HCl (Zoloft) 50 mg DAILY ORAL 06/23/19 09:00 07/23/19 08:59 06/23/19 08:52 Sodium Phosphate (Fleet's Sodium Phosl Enema) 133 ml DAILY PRN RECTAL Constipation 06/23/19 05:00 07/23/19 04:59 Tamsulosin HCl (Flomax) 0.4 mg BID ORAL 06/23/19 09:00 07/23/19 08:59 06/23/19 08:52 Assessment/Plan Problem List: (1) UTI (urinary tract infection) ICD Codes: N39.0 - Urinary tract infection, site not specified SNOMED: 24943140 Qualifiers: Qualified Codes: N30.00 - Acute cystitis without hematuria (2) Dysuria ICD Codes: R30.0 - Dysuria SNOMED: 43663479 (3) COPD (chronic obstructive pulmonary disease) ICD Codes: J44.9 - Chronic obstructive pulmonary disease, unspecified SNOMED: 69122345 Qualifiers: Qualified Codes: J44.9 - Chronic obstructive pulmonary disease, unspecified (4) Failure to thrive (0-17) ICD Codes: R62.51 - Failure to thrive (0-17) SNOMED: 007151689 (5) Schizophrenia ICD Codes: F20.9 - Schizophrenia, unspecified SNOMED: 94288518 Qualifiers: Qualified Codes: F20.9 - Schizophrenia, unspecified (6) Chronic pain ICD Codes: G89.29 - Other chronic pain SNOMED: 49673919 Qualifiers: Qualified Codes: G89.29 - Other chronic pain (7) Failure to thrive SNOMED: 28450986 Qualifiers: Qualified Codes: R62.7 - Adult failure to thrive (8) Hypothyroidism ICD Codes: E03.9 - Hypothyroidism, unspecified SNOMED: 21793985 Assessment/Plan: respiratory treatment GI evaluation symptomatic treatment titrate fio2 to sat of 92% check urine cultures iv abx analgesics for dysuria Denys Hendrix MD Jun 23, 2019 12:08
--- NOTE | 2019-06-23 14:49 | Consultation ---
History of Present Illness General Chief Complaint: General Complaint Referring physician: RICKY FORD Reason for Consultation: ABDOMINAL PAIN Present Illness Allergies: Coded Allergies: No Known Allergies (Unverified , 06/22/19) Medication History Scheduled Docusate Sodium* (Docusate Sodium*), 250 MG ORAL TWICE A DAY, (Reported) Famotidine (Pepcid Ac), 20 MG PO HS, (Reported) Gabapentin* (Gabapentin*), 600 MG ORAL Q8HR, (Reported) Levetiracetam (Keppra Xr), 500 MG ORAL Q12HR, (Reported) Levothyroxine Sodium* (Synthroid*), 25 MCG ORAL DAILY, (Reported) Lidocaine Patch* (Lidoderm Patch*), 1 PATCH TOPIC DAILY, (Reported) Methadone Hcl* (Methadone*), 5 MG ORAL Q12HR, (Reported) Metoprolol Tartrate* (Metoprolol Tartrate*), 25 MG ORAL BID, (Reported) NPH, Human Insulin Isophane (Humulin N Kwikpen), UNIT SQ AC+HS, (Reported) Quetiapine Fumarate* (Seroquel*), 50 MG ORAL TWICE A DAY, (Reported) Sertraline Hcl* (Zoloft*), 50 MG ORAL DAILY, (Reported) Tamsulosin HCl (Flomax), 0.4 MG ORAL BID, (Reported) Scheduled PRN Acetaminophen* (Acetaminophen 325MG Tablet*), 650 MG ORAL Q4H PRN for Mild Pain/ Temp > 100.5, (Reported) Bisacodyl (Dulcolax), 10 MG RC DAILY PRN for Constipation, (Reported) Bisacodyl* (Dulcolax*), 5 MG ORAL DAILY PRN for Constipation, (Reported) Bismuth Subsalicylate (Pepto-Bismol), 525 MG PO Q1HR PRN for upset stomach, ( Reported) Ibuprofen* (Motrin*), 600 MG ORAL Q6H PRN for Moderate Pain (Pain Scale 4-6), ( Reported) Magnesium Hydroxide* (Milk Of Magnesia*), 30 ML ORAL DAILY PRN for Constipation, (Reported) Na Phos,M-B/Na Phos,Di-Ba* (Fleet Enema*), 133 ML RECTAL DAILY PRN for Constipation, (Reported) Ondansetron* (Zofran*), 4 MG ORAL Q8HR PRN for Nausea & Vomiting, (Reported) Oxycodone HCl/Acetaminophen (Percocet 10-325 mg Tablet), 1 TAB ORAL Q4H PRN for Breakthrough Pain, (Reported) Oxycodone HCl/Acetaminophen (Percocet 10-325 mg Tablet), 1 TAB ORAL QID PRN for For Pain, (Reported) Patient History Healthcare decision maker Resuscitation status Advanced Directive on File Physical Exam Last 24 Hour Vital Signs Date Time Temp Pulse Resp B/P (MAP) Pulse Ox O2 Delivery O2 Flow Rate FiO2 06/23/19 12:00 98.9 57 18 186/68 (107) 94 06/23/19 09:00 Nasal Cannula 2.0 06/23/19 08:51 51 148/53 06/23/19 08:00 98.1 55 19 166/68 (100) 98 06/23/19 06:30 148/53 (84) 06/23/19 04:00 97.5 51 17 164/58 (93) 95 06/23/19 02:30 98.0 56 17 138/60 (86) 99 06/23/19 02:30 Nasal Cannula 2.0 06/23/19 02:00 98.5 56 18 123/54 98 Room Air 21 06/23/19 00:30 98.5 56 18 123/54 98 Room Air 21 06/22/19 23:00 98.5 57 18 144/76 98 Room Air 21 06/22/19 22:48 97.8 06/22/19 22:48 97.8 06/22/19 21:54 57 18 98 Room Air 21 06/22/19 21:45 57 18 Room Air 21 06/22/19 21:43 57 18 97 06/22/19 21:41 57 18 97 Room Air 21 06/22/19 20:52 97.9 68 16 140/70 (93) 98 Nasal Cannula Intake and Output 06/22/19 06/23/19 19:00 07:00 Intake Total 100 ml Output Total 200 ml Balance -100 ml Intake Oral 100 ml Output Urine Total 200 ml # Voids 3 Laboratory Tests Test 06/22/19 21:40 06/23/19 00:00 06/23/19 08:10 White Blood Count 7.6 K/UL (4.8-10.8) 9.5 K/UL (4.8-10.8) Red Blood Count 4.19 M/UL (4.20-5.40) L 4.01 M/UL (4.20-5.40) L Hemoglobin 14.2 G/DL (12.0-16.0) 13.8 G/DL (12.0-16.0) Hematocrit 42.8 % (37.0-47.0) 40.9 % (37.0-47.0) Mean Corpuscular Volume 102 FL (80-99) H 102 FL (80-99) H Mean Corpuscular Hemoglobin 33.8 PG (27.0-31.0) H 34.5 PG (27.0-31.0) H Mean Corpuscular Hemoglobin Concent 33.2 G/DL (32.0-36.0) 33.8 G/DL (32.0-36.0) Red Cell Distribution Width 11.1 % (11.6-14.8) L 11.4 % (11.6-14.8) L Platelet Count 191 K/UL (150-450) 169 K/UL (150-450) Mean Platelet Volume 6.4 FL (6.5-10.1) L 6.0 FL (6.5-10.1) L Neutrophils (%) (Auto) 69.8 % (45.0-75.0) 78.7 % (45.0-75.0) H Lymphocytes (%) (Auto) 17.6 % (20.0-45.0) L 11.3 % (20.0-45.0) L Monocytes (%) (Auto) 8.8 % (1.0-10.0) 7.2 % (1.0-10.0) Eosinophils (%) (Auto) 2.9 % (0.0-3.0) 2.1 % (0.0-3.0) Basophils (%) (Auto) 0.9 % (0.0-2.0) 0.8 % (0.0-2.0) Prothrombin Time 10.0 SEC (9.30-11.50) Prothromb Time International Ratio 0.9 (0.9-1.1) Activated Partial Thromboplast Time 26 SEC (23-33) Sodium Level 137 MMOL/L (136-145) 139 MMOL/L (136-145) Potassium Level 4.9 MMOL/L (3.5-5.1) 5.0 MMOL/L (3.5-5.1) Chloride Level 100 MMOL/L (98-107) 104 MMOL/L (98-107) Carbon Dioxide Level 33 MMOL/L (21-32) H 29 MMOL/L (21-32) Anion Gap 4 mmol/L (5-15) L 6 mmol/L (5-15) Blood Urea Nitrogen 29 mg/dL (7-18) H 24 mg/dL (7-18) H Creatinine 0.9 MG/DL (0.55-1.30) 0.8 MG/DL (0.55-1.30) Estimat Glomerular Filtration Rate mL/min (>60) mL/min (>60) Glucose Level 117 MG/DL (74-106) H 118 MG/DL (74-106) H Calcium Level 9.2 MG/DL (8.5-10.1) 9.3 MG/DL (8.5-10.1) Magnesium Level 2.1 MG/DL (1.8-2.4) Total Bilirubin 0.2 MG/DL (0.2-1.0) Aspartate Amino Transf (AST/SGOT) 11 U/L (15-37) L Alanine Aminotransferase (ALT/SGPT) 14 U/L (12-78) Alkaline Phosphatase 93 U/L (46-116) Total Creatine Kinase 50 U/L (26-308) Troponin I 0.000 ng/mL (0.000-0.056) Total Protein 7.7 G/DL (6.4-8.2) Albumin 3.6 G/DL (3.4-5.0) Globulin 4.1 g/dL Albumin/Globulin Ratio 0.9 (1.0-2.7) L Lipase 129 U/L (73-393) Urine Color Pale yellow Urine Appearance Clear Urine pH 7 (4.5-8.0) Urine Specific [place] 1.010 (1.005-1.035) Urine Protein Negative (NEGATIVE) Urine Glucose (UA) Negative (NEGATIVE) Urine Ketones Negative (NEGATIVE) Urine Blood Negative (NEGATIVE) Urine Nitrite Positive (NEGATIVE) H Urine Bilirubin Negative (NEGATIVE) Urine Urobilinogen Normal MG/DL (0.0-1.0) Urine Leukocyte Esterase 1+ (NEGATIVE) H Urine RBC 0 /HPF (0 - 2) Urine WBC 5-10 /HPF (0 - 2) H Urine Squamous Epithelial Cells Few /LPF (NONE/OCC) Urine Bacteria Many /HPF (NONE) H Height (Feet): 5 Height (Inches): 3.00 Weight (Pounds): 170 Medications Current Medications Medications (Trade) Dose Ordered Sig/Nay Route PRN Reason Start Time Stop Time Status Last Admin Dose Admin Acetaminophen (Tylenol) 650 mg Q4H PRN ORAL Mild Pain/Temp > 100.5 06/23/19 05:00 07/23/19 04:59 Bisacodyl (Dulcolax) 5 mg DAILY PRN ORAL Constipation 06/23/19 05:00 07/23/19 04:59 Bisacodyl (Dulcolax) 10 mg DAILY PRN RECTAL Constipation 06/23/19 05:00 07/23/19 04:59 Bismuth Subsalicylate (Pepto-Bismol) 30 ml Q1H PRN ORAL upset stomach 06/23/19 06:30 07/23/19 04:59 Ceftriaxone Sodium 1 gm/ Dextrose 55 ml @ 110 mls/hr Q24H IVPB 06/23/19 22:00 06/30/19 21:59 Dextrose (Dextrose 50%) 25 ml Q30M PRN IV Hypoglycemia 06/23/19 06:15 07/23/19 06:14 Dextrose (Dextrose 50%) 50 ml Q30M PRN IV Hypoglycemia 06/23/19 06:15 07/23/19 06:14 Docusate Sodium (Colace) 250 mg TWICE A DAY ORAL 06/23/19 09:00 07/23/19 08:59 06/23/19 08:51 Famotidine (Pepcid) 20 mg QHS ORAL 06/23/19 21:00 07/23/19 20:59 Gabapentin (Neurontin) 600 mg Q12HR ORAL 06/23/19 09:00 07/23/19 05:59 06/23/19 08:51 Ibuprofen (Motrin) 600 mg Q6H PRN ORAL Moderate Pain (Pain Scale 4-6) 06/23/19 05:00 07/23/19 04:59 Insulin Aspart (NovoLOG) BEFORE MEALS AND HS SUBQ 06/23/19 06:30 07/23/19 06:29 Levetiracetam (Keppra) 500 mg Q12HR ORAL 06/23/19 09:00 07/23/19 08:59 06/23/19 08:52 Levothyroxine Sodium (Synthroid) 25 mcg ACBREAKFAST ORAL 06/23/19 06:30 07/23/19 06:29 06/23/19 06:25 Lidocaine (Lidoderm 5% PATCH) 1 patch DAILY TDERMAL 06/23/19 09:00 07/23/19 08:59 06/23/19 08:52 Magnesium Hydroxide (Mom) 30 ml DAILY PRN ORAL Constipation 06/23/19 05:00 07/23/19 04:59 Methadone HCl (Methadone HCl) 5 mg Q12HR ORAL 06/23/19 09:00 06/30/19 08:59 06/23/19 08:52 Metoprolol Tartrate (Lopressor) 25 mg BID ORAL 06/23/19 09:00 07/23/19 08:59 06/23/19 08:51 Morphine Sulfate (Morphine Sulfate) 2 mg Q4H PRN IVP Severe Pain (Pain Scale 7-10) 06/23/19 05:00 06/30/19 04:59 Ondansetron HCl (Zofran) 4 mg Q8H PRN ORAL Nausea & Vomiting 06/23/19 05:00 07/23/19 04:59 Oxycodone/ Acetaminophen (Percocet 10/325) 1 tab Q4H PRN ORAL Breakthrough Pain 06/23/19 05:00 06/30/19 04:59 06/23/19 09:47 Oxycodone/ Acetaminophen (Percocet 10/325) 1 tab QID PRN ORAL Severe Pain (Pain Scale 7-10) 06/23/19 05:30 06/30/19 05:29 Phenazopyridine HCl (Pyridium) 100 mg THREE TIMES A DAY ORAL 06/23/19 13:00 07/23/19 12:59 06/23/19 13:48 Quetiapine Fumarate (SEROquel) 50 mg TWICE A DAY ORAL 06/23/19 09:00 07/23/19 08:59 06/23/19 08:51 Sertraline HCl (Zoloft) 50 mg DAILY ORAL 06/23/19 09:00 07/23/19 08:59 06/23/19 08:52 Sodium Phosphate (Fleet's Sodium Phosl Enema) 133 ml DAILY PRN RECTAL Constipation 06/23/19 05:00 07/23/19 04:59 Tamsulosin HCl (Flomax) 0.4 mg BID ORAL 06/23/19 09:00 07/23/19 08:59 06/23/19 08:52 Assessment/Plan Assessment/Plan: Hematology Consultaiton Reason for Hospitalization: abd pain Referring physician: RICKY FORD Reason for Consultation: Rule out malignancy, macrocytosis DOS: 06/23/19 ID Patient presents with 3 weeks of intermittent symptoms. She says when she wakes up she feels pretty good but then starts feeling dizziness. She has pain in her neck that bothers her and she takes medication for that. She also complains of left lower quadrant abdominal pain with constipation due to taking pain medication. She also has dysuria. She is denying chest pain, shortness of breath. She says she feels dizzy and weak through the day. She does smoke cigarettes and has a chronic cough. Pain in her neck is rated 10/10. The pain in her abdomen is less. It is constant. Noted to have weakness and fatigue, was asked to eval for FTT, r/o malignancy. Gi evaluating as well. Past Medical hx History of schizophrenia and depression. No suicidal ideation. History of COPD. History of irritable bowel syndrome. Home Meds Reported Medications Oxycodone HCl/Acetaminophen (Percocet 10-325 mg Tablet) 1 Each Tablet, 1 TAB ORAL QID PRN for For Pain, #10 TAB 0 Refills 06/23/19 Bismuth Subsalicylate (PEPTO-BISMOL) 525 Mg/15 Ml Oral.susp, 525 MG PO Q1HR PRN for upset stomach, ML 06/23/19 Na Phos,M-B/Na Phos,Di-Ba* (FLEET ENEMA*) 133 Ml Enema, 133 ML RECTAL DAILY PRN for Constipation, ML 0 Refills 06/23/19 Levothyroxine Sodium* (SYNTHROID*) 25 Mcg Tablet, 25 MCG ORAL DAILY, TAB Take in the morning on an empty stomach, at least 30 minutes before food. 06/23/19 Docusate Sodium* (DOCUSATE SODIUM*) 250 Mg Capsule, 250 MG ORAL TWICE A DAY, CAP 06/23/19 NPH, Human Insulin Isophane (Humulin N Kwikpen) 100 Unit/1 Ml Insuln.pen, UNIT SQ AC+HS, EA 06/23/19 Ibuprofen* (MOTRIN*) 600 Mg Tablet, 600 MG ORAL Q6H PRN for Moderate Pain (Pain Scale 4-6), #20 TAB 0 Refills 06/22/19 Oxycodone HCl/Acetaminophen (Percocet 10-325 mg Tablet) 1 Each Tablet, 1 TAB ORAL Q4H PRN for Breakthrough Pain, #10 TAB 0 Refills 06/22/19 Acetaminophen* (ACETAMINOPHEN 325MG TABLET*) 325 Mg Tablet, 650 MG ORAL Q4H PRN for Mild Pain/Temp > 100.5, TAB 06/22/19 Bisacodyl (DULCOLAX) 10 Mg Supp.rect, 10 MG RC DAILY PRN for Constipation, SUPP 06/22/19 Magnesium Hydroxide* (MILK OF MAGNESIA*) 400 Mg/5 Ml Oral.susp, 30 ML ORAL DAILY PRN for Constipation, ML 06/22/19 Ondansetron* (ZOFRAN*) 4 Mg Tablet, 4 MG ORAL Q8HR PRN for Nausea & Vomiting, TAB 06/22/19 Lidocaine Patch* (Lidoderm Patch*) 1 Each Adh..patch, 1 PATCH TOPIC DAILY, #7 PATCH 0 Refills Patch(es) may remain in place for up to 12 hours in any 24-hour period. Apply to lower back 06/22/19 Levetiracetam (KEPPRA XR) 500 Mg Tab.er.24h, 500 MG ORAL Q12HR, #30 TAB 0 Refills 06/22/19 Metoprolol Tartrate* (METOPROLOL TARTRATE*) 25 Mg Tablet, 25 MG ORAL BID, TAB BID with meals Hold if SBP<110 or HR<60 06/22/19 Famotidine (PEPCID AC) 20 Mg Tablet, 20 MG PO HS, TAB 06/22/19 Methadone Hcl* (METHADONE*) 5 Mg Tablet, 5 MG ORAL Q12HR, #3 TAB 0 Refills 06/22/19 Tamsulosin HCl (Flomax) 0.4 Mg Cap.er.24h, 0.4 MG ORAL BID, CAP 06/22/19 Sertraline Hcl* (ZOLOFT*) 50 Mg Tablet, 50 MG ORAL DAILY, TAB 06/22/19 Gabapentin* (GABAPENTIN*) 600 Mg Tablet, 600 MG ORAL Q8HR, TAB 06/22/19 Quetiapine Fumarate* (SEROQUEL*) 25 Mg Tablet, 50 MG ORAL TWICE A DAY, TAB 06/22/19 Bisacodyl* (DULCOLAX*) 5 Mg Tablet.dr, 5 MG ORAL DAILY PRN for Constipation, # 10 TAB 0 Refills 06/22/19 Med list reviewed/reconciled: Yes Allergies: Coded Allergies: No Known Allergies (Unverified , 06/22/19) Patient History Limited by: other - refusing to answer questions History Provided By: Patient, Medical Record Review of Systems All Other Systems: limited PE: Vitals: reviewed, stable General Appearance: NAD HEENT: normocephalic, atraumatic Neck: non-tender, normal alignment Respiratory/Chest: normal breath sounds bilaterally Cardiovascular/Chest: normal peripheral pulses, normal rate Abdomen: normal bowel sounds, soft, nontender Extremities: normal range of motion Labs: noted Imaging: reviewed Assessment and recs: # Failure to thrive (FTT) - decreased bmi and low protein --> have ordered for cea level --> will obtain q3 day caloric counts --> may consider mirtazapine as appetite stimulant --> GI consult on a prn basis, as needed for endosc # Macrocytosis with a mcv currently 102-103 range --> obtain tsh, folate, b12 --> HOLD OFF bone marrow biopsy, can be related to meds as well # Abdominal pain -> kub does show constipation --> colace and miralax atc, senna as well # Therapeutic opioid-induced constipation (OIC) --> recommend she stop taking as large dose of opiates as she is taking # Schizophrenia --> psych eval prn # Chronic pain # Dvt ppx with scds The time of service does not reflect the actual time that the patient was actually seen Greatly appreciate consultation. Jose Medeiros MD Jun 23, 2019 14:49
[2019-06-23] MEDS: LORazepam 0.5mg tab ORAL PRN ×2 (15:51→22:38)
--- NOTE | 2019-06-23 18:10 | Cardiology Report ---
APPROVED REPORT EKG Measurement Heart [id number] Sinus bradycardia Left axis deviation Right bundle branch block Septal infarct, age undetermined Abnormal ECG
--- NOTE | 2019-06-23 18:15 | Consultation ---
DATE OF CONSULTATION: 06/23/2019 CONSULTING PHYSICIAN: Monique Morrell M.D. HISTORY OF PRESENT ILLNESS: This is an 89-year-old female, failure to thrive. She is very confused, disorganized female patient. She is complaining about pain. She says she has got a lot of pain in her vaginal area and she says this is making her very angry, irritable. She is irritable and mood labile. The reason why she was admitted to the hospital is because she came in complaining of dizziness, neck pain, lot of constipation, abdominal pain, but she also has overlying diagnosis of paranoid schizophrenia with acute exacerbation as well, so daily psychiatric consultation requested for this patient to be seen. MEDICAL HISTORY: History of COPD, hypertension, GI symptoms. ALLERGIES: No known drug allergies. PSYCHOTROPIC MEDICATIONS ON ADMISSION: The patient is currently on a psych med regimen consisting of Neurontin 600 mg q.12 hours. Also, Ativan 0.5 mg every 6 hours, Seroquel 50 mg twice a day, Zoloft 50 mg daily, but she is still very mood labile, irritable, agitated. SUBSTANCE ABUSE HISTORY: Denies. PAIN ASSESSMENT: 12/14. DEVELOPMENTAL PROBLEMS: Denies. FAMILY PSYCHIATRIC HISTORY: Denies. SOCIAL HISTORY: This patient is currently living in a [facility]. Financially supported by [employer] and Medicare. STRENGTHS: She is motivated to get better and she is healthy. WEAKNESSES: She is impulsive, minimal support system. MENTAL STATUS EXAMINATION: This is an 89-year-old female. Appearance is disheveled. Attitude, irritable and agitated. Affect, guarded and restricted. Intellect poor. Mood, depressed and anxious. Motor activity, psychomotor agitation. Attention span is poor. Orientation x2. Speech is pressured. Thought process, disorganized and illogical. Insight and judgment is poor. DIAGNOSIS: Paranoid schizophrenia with acute exacerbation. PLAN: For this patient, treat her with psychotropic medications to stabilize her mood. Provided with 20 minutes of cognitive behavior therapy to help identify automatic negative thoughts and help her convert those negative thoughts to more positive thoughts to reduce depression, anxiety, suicidality. Chart reviewed. Discussed with staff. Seen and assessed in her room. Monique Morrell M.D. DR: NEVAEH JOB#: [id number] CC:
--- NOTE | 2019-06-23 19:09 | NUR ---
HAND-OFF: Report given to Maria Dolores CALVILLO.
[2019-06-23] MEDS ORDERED: HUMULIN R100 UNIT/1 SUBQ (19:15)
--- NOTE | 2019-06-23 19:30 | NUR ---
NURSE NOTES: Patient received asleep, no acute distress at this time. On room air, no acute respiratory distress at this time. WIll monitor.
--- NOTE | 2019-06-23 21:09 | Cardiology Progress Note ---
Assessment/Plan Assessment/Plan The patient is seen and examined, full consult note is dictated. Objective Last 24 Hour Vital Signs Date Time Temp Pulse Resp B/P (MAP) Pulse Ox O2 Delivery O2 Flow Rate FiO2 06/23/19 17:20 71 149/95 06/23/19 16:00 98.0 71 19 149/95 (113) 95 06/23/19 12:00 98.9 57 18 186/68 (107) 94 06/23/19 09:00 Nasal Cannula 2.0 06/23/19 08:51 51 148/53 06/23/19 08:00 98.1 55 19 166/68 (100) 98 06/23/19 06:30 148/53 (84) 06/23/19 04:00 97.5 51 17 164/58 (93) 95 06/23/19 02:30 98.0 56 17 138/60 (86) 99 06/23/19 02:30 Nasal Cannula 2.0 06/23/19 02:00 98.5 56 18 123/54 98 Room Air 21 06/23/19 00:30 98.5 56 18 123/54 98 Room Air 21 06/22/19 23:00 98.5 57 18 144/76 98 Room Air 21 06/22/19 22:48 97.8 06/22/19 22:48 97.8 06/22/19 21:54 57 18 98 Room Air 21 06/22/19 21:45 57 18 Room Air 21 06/22/19 21:43 57 18 97 06/22/19 21:41 57 18 97 Room Air 21 Intake and Output 06/22/19 06/23/19 18:59 06:59 Intake Total 100 ml Output Total 200 ml Balance -100 ml Intake Oral 100 ml Output Urine Total 200 ml # Voids 3 Laboratory Tests Test 06/22/19 21:40 06/23/19 00:00 06/23/19 08:10 White Blood Count 7.6 K/UL (4.8-10.8) 9.5 K/UL (4.8-10.8) Red Blood Count 4.19 M/UL (4.20-5.40) L 4.01 M/UL (4.20-5.40) L Hemoglobin 14.2 G/DL (12.0-16.0) 13.8 G/DL (12.0-16.0) Hematocrit 42.8 % (37.0-47.0) 40.9 % (37.0-47.0) Mean Corpuscular Volume 102 FL (80-99) H 102 FL (80-99) H Mean Corpuscular Hemoglobin 33.8 PG (27.0-31.0) H 34.5 PG (27.0-31.0) H Mean Corpuscular Hemoglobin Concent 33.2 G/DL (32.0-36.0) 33.8 G/DL (32.0-36.0) Red Cell Distribution Width 11.1 % (11.6-14.8) L 11.4 % (11.6-14.8) L Platelet Count 191 K/UL (150-450) 169 K/UL (150-450) Mean Platelet Volume 6.4 FL (6.5-10.1) L 6.0 FL (6.5-10.1) L Neutrophils (%) (Auto) 69.8 % (45.0-75.0) 78.7 % (45.0-75.0) H Lymphocytes (%) (Auto) 17.6 % (20.0-45.0) L 11.3 % (20.0-45.0) L Monocytes (%) (Auto) 8.8 % (1.0-10.0) 7.2 % (1.0-10.0) Eosinophils (%) (Auto) 2.9 % (0.0-3.0) 2.1 % (0.0-3.0) Basophils (%) (Auto) 0.9 % (0.0-2.0) 0.8 % (0.0-2.0) Prothrombin Time 10.0 SEC (9.30-11.50) Prothromb Time International Ratio 0.9 (0.9-1.1) Activated Partial Thromboplast Time 26 SEC (23-33) Sodium Level 137 MMOL/L (136-145) 139 MMOL/L (136-145) Potassium Level 4.9 MMOL/L (3.5-5.1) 5.0 MMOL/L (3.5-5.1) Chloride Level 100 MMOL/L (98-107) 104 MMOL/L (98-107) Carbon Dioxide Level 33 MMOL/L (21-32) H 29 MMOL/L (21-32) Anion Gap 4 mmol/L (5-15) L 6 mmol/L (5-15) Blood Urea Nitrogen 29 mg/dL (7-18) H 24 mg/dL (7-18) H Creatinine 0.9 MG/DL (0.55-1.30) 0.8 MG/DL (0.55-1.30) Estimat Glomerular Filtration Rate mL/min (>60) mL/min (>60) Glucose Level 117 MG/DL (74-106) H 118 MG/DL (74-106) H Calcium Level 9.2 MG/DL (8.5-10.1) 9.3 MG/DL (8.5-10.1) Magnesium Level 2.1 MG/DL (1.8-2.4) Total Bilirubin 0.2 MG/DL (0.2-1.0) Aspartate Amino Transf (AST/SGOT) 11 U/L (15-37) L Alanine Aminotransferase (ALT/SGPT) 14 U/L (12-78) Alkaline Phosphatase 93 U/L (46-116) Total Creatine Kinase 50 U/L (26-308) Troponin I 0.000 ng/mL (0.000-0.056) Total Protein 7.7 G/DL (6.4-8.2) Albumin 3.6 G/DL (3.4-5.0) Globulin 4.1 g/dL Albumin/Globulin Ratio 0.9 (1.0-2.7) L Lipase 129 U/L (73-393) Urine Color Pale yellow Urine Appearance Clear Urine pH 7 (4.5-8.0) Urine Specific [place] 1.010 (1.005-1.035) Urine Protein Negative (NEGATIVE) Urine Glucose (UA) Negative (NEGATIVE) Urine Ketones Negative (NEGATIVE) Urine Blood Negative (NEGATIVE) Urine Nitrite Positive (NEGATIVE) H Urine Bilirubin Negative (NEGATIVE) Urine Urobilinogen Normal MG/DL (0.0-1.0) Urine Leukocyte Esterase 1+ (NEGATIVE) H Urine RBC 0 /HPF (0 - 2) Urine WBC 5-10 /HPF (0 - 2) H Urine Squamous Epithelial Cells Few /LPF (NONE/OCC) Urine Bacteria Many /HPF (NONE) H Carcinoembryonic Antigen Pending Vitamin B12 Level 512 PG/ML (193-986) Folate 24.5 NG/ML (8.6-58.9) Thyroid Stimulating Hormone (TSH) 1.325 uiU/mL (0.358-3.740) Cooper Gastelum MD Jun 23, 2019 21:09
[2019-06-23] MEDS: cefTRIAXone 1 GM in D5W 55 ML IVPB SCH (21:10)
[2019-06-23] MEDS: Bisacodyl EC 5mg tab ORAL PRN (21:11)
--- NOTE | 2019-06-23 23:00 | Consultation ---
DATE OF CONSULTATION: 06/23/2019 CARDIOLOGY CONSULTATION CONSULTING PHYSICIAN: Cooper Gastelum M.D. REFERRING PHYSICIAN: Ru Barreto D.O. REASON FOR CONSULTATION: Management of presyncope. HISTORY OF PRESENT ILLNESS: The patient is a very unfortunate 89-year-old lady, who presents with three weeks constellation of symptoms including dizziness and lightheadedness, abdominal pain as well as dysuria. The patient has history of irritable bowel syndrome and psychiatric disorder including schizophrenia and depression as well as history of chronic obstructive pulmonary disease. At the time of arrival to this facility, blood pressure was 140/70 mmHg and heart rate was 67. Initial laboratory finding included chemistry which showed evidence of elevated bicarbonate at 33 and also BUN and creatinine of 29 and 0.9 with the ratio of over 20. She was found to have for 5 to 10 wbc's in the urine with leukocyte esterase, diagnosed with the urinary tract infection. The patient's chest x-ray in the emergency department showed no acute cardiopulmonary disease. A 12-lead electrocardiogram was significant for sinus rhythm with left axis deviation, right bundle-branch block, but no acute ischemic features. The patient was admitted to Med/Surg unit with failure to thrive and presyncope due to hypovolemia as well as UTI. Cardiology consultation was made for hemodynamic management and assessment of presyncope. PAST MEDICAL HISTORY: 1. COPD. 2. Irritable bowel syndrome. 3. Schizophrenia. 4. Depression. 5. History of constipation. 6. Chronic cough. PAST SURGICAL HISTORY: None. MEDICATIONS: List of medication includes acetaminophen 650 mg q.4 h. p.r.n. pain and temperature above 100.5 degrees, bisacodyl 10 mg RC daily p.r.n. constipation, Dulcolax 10 mg daily p.r.n. constipation, Pepto-Bismol 525 mg q.1 hour as needed upset stomach, Colace 250 mg twice daily, Pepcid AC 20 mg nightly, gabapentin 600 mg q.8 hours, Motrin 600 mg q.6 hours as needed moderate pain, Humulin R subcutaneous sliding scale, Keppra 500 mg q.12 hours, Synthroid 25 mcg p.o. daily, lidocaine patch one patch topically daily, magnesium hydroxide 30 mL daily p.r.n. constipation, methadone 5 mg p.o. q.12 hours, metoprolol 25 mg twice daily, Fleet Enema 133 mL rectal daily p.r.n. constipation, Zofran 4 mg q.8 hours for nausea and vomiting, oxycodone-acetaminophen 10-325 mg one tablet every four hours as needed breakthrough pain, Seroquel 50 mg twice daily, Zoloft 50 mg daily, and tamsulosin Flomax 0.4 mg twice daily. SOCIAL HISTORY: Reports tobacco, but denies any alcohol or illicit drug use. REVIEW OF SYSTEMS: HEENT: Denies any headache, diplopia, or blurred vision. CONSTITUTIONAL: Denies any fever, chills, or night sweats. CARDIOVASCULAR: Denies any chest pain, shortness breath, PND, orthopnea, or leg swelling. PULMONARY: Complains of chronic cough, but no wheezing or hemoptysis. GASTROINTESTINAL: Complained of left lower quadrant abdominal pain with constipation. GENITOURINARY: Complaining of dysuria, but no frequency of urination. NEUROLOGICAL: Complains of dizziness and lightheadedness. No loss of consciousness. Denies any signs of lateralization. No prior history of stroke. PHYSICAL EXAMINATION: VITAL SIGNS: Blood pressure is 140/70, pulse 68, respirations 16, pulse oximetry 98% on nasal cannula, and temperature 97.9 degrees Fahrenheit. GENERAL: The patient is a very unfortunate 89-year-old female, in no apparent respiratory distress. Alert and oriented x4. Obese. HEENT: Atraumatic and normocephalic. Anicteric. Pupils are equal, round and reactive to light and accommodation. Extraocular muscles intact. NECK: JVP less than 5 cm. No carotid bruits. Carotid upstrokes 2+ bilaterally. CARDIOVASCULAR: Normal S1, S2. Regular rate and rhythm. No murmurs, gallops, or rubs. LUNGS: Diminished breath sounds. ABDOMEN: Soft, nontender, and nondistended. Obese. Positive bowel sounds. EXTREMITIES: No evidence of edema, clubbing, or cyanosis. LABORATORY FINDINGS: WBC is 7.6, hemoglobin 14.2, hematocrit 42.8, and platelet count 191,000. Sodium 137, potassium 4.9, chloride 100, bicarbonate 33, BUN 29, and creatinine 0.9. Glucose 117. Calcium is 9.2. Troponin I was 0. INR is 0.9. ASSESSMENT AND PLAN: The patient is a very unfortunate 89-year-old female, seen in Cardiology consultation. 1. Presyncope. I would like to consider hydration in view of the patient's chemistry. The patient will benefit from half normal saline. BUN and creatinine ratio over 20 is supportive of prerenal azotemia and hypovolemia. 2. Hypertensive crisis with systolic blood pressure of 186 mmHg at noon. I would like to continue metoprolol and would like to add amlodipine. I would like to discontinue nonsteroidal anti-inflammatory drugs. We will obtain 2-D echocardiography to assess LV systolic and diastolic function. 3. History of chronic obstructive pulmonary disease. 4. History of psychiatric disorder. I would like to thank Dr. Barreto for the courtesy of this consultation. Cooper Gastelum M.D. DR: BRIAN JOB#: [id number] CC:
--- NOTE | 2019-06-24 03:00 | History and Physical Report ---
DATE OF ADMISSION: 06/22/2019 DATE AND TIME SEEN: 06/23/2019 at 1 p.m. CONSULTANTS: 1. Monique Morrell M.D. 2. Renato Rangel M.D. 3. Denys Hendrix M.D. CHIEF COMPLAINT: Failure to thrive, COPD exacerbation. BRIEF HISTORY: This is an 89-year-old female from [facility], presented with above-mentioned diagnoses, admitted to the medical floor for further treatment. Currently, lethargic, sleepy in bed. REVIEW OF SYSTEMS: Unavailable. PAST MEDICAL HISTORY: COPD, diabetes, EDUARDO, weakness, osteoporosis, osteoarthritis, and schizophrenia. PAST SURGICAL HISTORY: Unknown. MEDICATIONS: Includes ceftriaxone, famotidine, , lidocaine, methadone, metoprolol, sertraline, , gabapentin, levothyroxine, insulin, oxycodone. ALLERGIES: Denies. SOCIAL HISTORY: No smoking. No alcohol. No intravenous drug abuse. FAMILY HISTORY: Noncontributory. PHYSICAL EXAMINATION: GENERAL: Lethargic in bed, not answering questions. VITAL SIGNS: Temperature is 98, pulse 57, respirations 18, blood pressure 186/68. CARDIOVASCULAR: No murmur. LUNGS: Poor air exchange. ABDOMEN: Bowel sounds distant. EXTREMITIES: No cyanosis, clubbing, edema. NEUROLOGIC: The patient is flaccid in bed, not following directions. ASSESSMENT: 1. Failure to thrive. 2. COPD. 3. Diabetes. 4. EDUARDO. 5. Weakness. 6. Hypertension. 7. Bradycardia. 8. Osteoporosis. 9. Osteoarthritis. 10. Schizophrenia. PLAN: 1. PT, dietary evaluation. 2. CBC, BMP in the morning. 3. Resume home medications. 4. Blood pressure, blood sugar control. 5. Cardiology evaluation by Dr. Gastelum. Ru Barreto D.O. DR: KATARZYNA JOB#: [id number] CC:
[2019-06-24 04:00] VITALS: BP 152/75
[2019-06-24] MEDS: LORazepam 0.5mg tab ORAL PRN ×2 (04:44→19:57)
[2019-06-24] MEDS: Levothyroxine 25mcg tab ORAL SCH (06:26)
[2019-06-24] MEDS: NovoLOG Insulin Flexpen SUBQ SCH ×4 (06:28→21:18)
[2019-06-24 07:06] LABS: BASOPHILS % (AUTO) 0.6 % (0.0-2.0); EOSINOPHILS % (AUTO) 2.3 % (0.0-3.0); HEMATOCRIT 40.7 % (37.0-47.0); HEMOGLOBIN 13.1 G/DL (12.0-16.0); LYMPHOCYTES % (AUTO) 19.6 % (20.0-45.0); MEAN CORPUSCULAR VOLUME 102 FL (80-99); MONOCYTES % (AUTO) 8.8 % (1.0-10.0); NEUTROPHILS % (AUTO) 68.7 % (45.0-75.0); PLATELET COUNT 178 K/UL (150-450); RED BLOOD COUNT 3.99 M/UL (4.20-5.40); RED CELL DISTRIBUTION WIDTH 11.9 % (11.6-14.8); WHITE BLOOD COUNT 8.1 K/UL (4.8-10.8)
[2019-06-24 07:11] LABS: ALANINE AMINOTRANSFERASE 11 U/L (12-78); ALBUMIN 3.1 G/DL (3.4-5.0); ALBUMIN/GLOBULIN RATIO 0.8 (1.0-2.7); ALKALINE PHOSPHATASE 78 U/L (46-116); ANION GAP 4 mmol/L (5-15); ASPARTATE AMINO TRANSFERASE 11 U/L (15-37); BILIRUBIN,TOTAL 0.2 MG/DL (0.2-1.0); BLOOD UREA NITROGEN 22 mg/dL (7-18); CARBON DIOXIDE 31 MMOL/L (21-32); CHLORIDE 103 MMOL/L (98-107); CREATININE 0.9 MG/DL (0.55-1.30); PHOSPHORUS 3.3 MG/DL (2.5-4.9); POTASSIUM 4.6 MMOL/L (3.5-5.1); SODIUM 138 MMOL/L (136-145)
--- NOTE | 2019-06-24 07:45 | NUR ---
HAND-OFF: Report given to Amparo CALVILLO.
--- NOTE | 2019-06-24 08:00 | NUR ---
NURSE NOTES: Patient awake and alert,eating breakfast,respirations unlabored.b ed alarm on,call light within reach.
[2019-06-24 08:22] VITALS: BP 136/51
[2019-06-24] MEDS: Docusate 250mg cap ORAL SCH (08:29)
[2019-06-24] MEDS: Tamsulosin 0.4mg cap ORAL SCH ×2 (08:30→17:58)
[2019-06-24] MEDS: Metoprolol 25mg tab ORAL SCH ×2 (08:30→17:56)
[2019-06-24] MEDS: Sertraline 50mg tab ORAL SCH (08:32)
--- NOTE | 2019-06-24 09:41 | Hematology/Onc Progress Note ---
Assessment/Plan Assessment/Plan Assessment and recs: # Failure to thrive (FTT) - decreased bmi and low protein --> have ordered for cea level PENDING --> will obtain q3 day caloric counts --> may consider mirtazapine as appetite stimulant --> GI consult on a prn basis, as needed for endosc --> psych eval as well # Macrocytosis with a mcv currently 102-103 range --> tsh, folate, b12--> are wnl --> HOLD OFF bone marrow biopsy, can be related to meds as well # Abdominal pain -> kub does show constipation --> colace and miralax atc, senna as well # Therapeutic opioid-induced constipation (OIC) --> recommend she stop taking as large dose of opiates as she is taking # Schizophrenia --> psych eval prn # Chronic pain # Dvt ppx with scds The time of service does not reflect the actual time that the patient was actually seen Greatly appreciate consultation. Subjective Constitutional: Denies: no symptoms, chills, fever, malaise, weakness, other HEENT: Denies: no symptoms, eye pain, blurred vision, tearing, double vision, ear pain, ear discharge, nose pain, nose congestion, throat pain, throat swelling, mouth pain, mouth swelling, other Cardiovascular: Denies: no symptoms, chest pain, edema, irregular heart rate, lightheadedness, palpitations, syncope, other Respiratory: Denies: no symptoms, cough, shortness of breath, SOB with excertion, SOB at rest, sputum, wheezing, other Gastrointestinal/Abdominal: Denies: no symptoms, abdomen distended, abdominal pain, black stools, tarry stools, blood in stool, constipated, diarrhea, difficulty swallowing, nausea, poor appetite, poor fluid intake, rectal bleeding , vomiting, other Genitourinary: Denies: no symptoms, burning, discharge, frequency, flank pain, hematuria, incontinence, pain, urgency, other Neurologic/Psychiatric: Denies: no symptoms, anxiety, depressed, emotional problems, headache, numbness, paresthesia, pre-existing deficit, seizure, tingling, tremors, weakness, other Endocrine: Denies: no symptoms, excessive sweating, flushing, intolerance to cold, intolerance to heat, increased hunger, increased thirst, increased urine, unexplained weight gain, unexplained weight loss, other Allergies: Coded Allergies: No Known Allergies (Unverified , 06/22/19) Subjective 06/24: no events, on ivf, no bleeding, no f/c Objective Objective Current Medications Medications (Trade) Dose Ordered Sig/Nay Route PRN Reason Start Time Stop Time Status Last Admin Dose Admin Acetaminophen (Tylenol) 650 mg Q4H PRN ORAL Mild Pain/Temp > 100.5 06/23/19 05:00 07/23/19 04:59 06/24/19 06:26 Amlodipine Besylate (Norvasc) 5 mg DAILY ORAL 06/24/19 09:00 07/24/19 08:59 06/24/19 08:31 Bisacodyl (Dulcolax) 5 mg DAILY PRN ORAL Constipation 06/23/19 05:00 07/23/19 04:59 06/23/19 21:11 Bisacodyl (Dulcolax) 10 mg DAILY PRN RECTAL Constipation 06/23/19 05:00 07/23/19 04:59 Bismuth Subsalicylate (Pepto-Bismol) 30 ml Q1H PRN ORAL upset stomach 06/23/19 06:30 07/23/19 04:59 Ceftriaxone Sodium 1 gm/ Dextrose 55 ml @ 110 mls/hr Q24H IVPB 06/23/19 22:00 06/30/19 21:59 06/23/19 21:10 Clonidine HCl (Catapres Tab) 0.1 mg QID PRN ORAL SBP ABOVE 160 06/23/19 21:25 07/23/19 21:24 Dextrose (Dextrose 50%) 25 ml Q30M PRN IV Hypoglycemia 06/23/19 06:15 07/23/19 06:14 Dextrose (Dextrose 50%) 50 ml Q30M PRN IV Hypoglycemia 06/23/19 06:15 07/23/19 06:14 Docusate Sodium (Colace) 250 mg TWICE A DAY ORAL 06/23/19 09:00 07/23/19 08:59 06/24/19 08:29 Famotidine (Pepcid) 20 mg QHS ORAL 06/23/19 21:00 07/23/19 20:59 06/23/19 20:40 Gabapentin (Neurontin) 600 mg Q12HR ORAL 06/23/19 09:00 07/23/19 05:59 06/24/19 08:31 Insulin Aspart (NovoLOG) BEFORE MEALS AND HS SUBQ 06/23/19 06:30 07/23/19 06:29 06/23/19 17:25 Levetiracetam (Keppra) 500 mg Q12HR ORAL 06/23/19 09:00 07/23/19 08:59 06/24/19 08:30 Levothyroxine Sodium (Synthroid) 25 mcg ACBREAKFAST ORAL 06/23/19 06:30 07/23/19 06:29 06/24/19 06:26 Lidocaine (Lidoderm 5% PATCH) 1 patch DAILY TDERMAL 06/23/19 09:00 07/23/19 08:59 06/24/19 08:32 Lorazepam (Ativan) 0.5 mg Q6H PRN ORAL For Anxiety 06/23/19 15:00 06/30/19 14:59 06/24/19 04:44 Magnesium Hydroxide (Mom) 30 ml DAILY PRN ORAL Constipation 06/23/19 05:00 07/23/19 04:59 Methadone HCl (Methadone HCl) 5 mg Q12HR ORAL 06/23/19 09:00 06/30/19 08:59 06/24/19 08:30 Metoprolol Tartrate (Lopressor) 25 mg BID ORAL 06/23/19 09:00 07/23/19 08:59 06/24/19 08:30 Morphine Sulfate (Morphine Sulfate) 2 mg Q4H PRN IVP Severe Pain (Pain Scale 7-10) 06/23/19 05:00 06/30/19 04:59 Ondansetron HCl (Zofran) 4 mg Q8H PRN ORAL Nausea & Vomiting 06/23/19 05:00 07/23/19 04:59 Oxycodone/ Acetaminophen (Percocet 10/325) 1 tab Q4H PRN ORAL Breakthrough Pain 06/23/19 05:00 06/30/19 04:59 06/24/19 01:37 Oxycodone/ Acetaminophen (Percocet 10/325) 1 tab QID PRN ORAL Severe Pain (Pain Scale 7-10) 06/23/19 05:30 06/30/19 05:29 06/24/19 03:42 Phenazopyridine HCl (Pyridium) 100 mg THREE TIMES A DAY ORAL 06/23/19 13:00 07/23/19 12:59 06/24/19 08:31 Quetiapine Fumarate (SEROquel) 50 mg TWICE A DAY ORAL 06/23/19 09:00 07/23/19 08:59 06/24/19 08:31 Sertraline HCl (Zoloft) 50 mg DAILY ORAL 06/23/19 09:00 07/23/19 08:59 06/24/19 08:32 Sodium Phosphate (Fleet's Sodium Phosl Enema) 133 ml DAILY PRN RECTAL Constipation 06/23/19 05:00 07/23/19 04:59 Tamsulosin HCl (Flomax) 0.4 mg BID ORAL 06/23/19 09:00 07/23/19 08:59 06/24/19 08:30 Last 24 Hour Vital Signs Date Time Temp Pulse Resp B/P (MAP) Pulse Ox O2 Delivery O2 Flow Rate FiO2 06/24/19 08:31 60 136/51 06/24/19 08:30 60 136/51 06/24/19 08:22 97.2 60 18 136/51 (79) 92 06/24/19 06:56 98.4 06/24/19 04:12 98.4 06/24/19 04:00 97.6 56 18 152/75 (100) 95 06/24/19 02:07 98.4 06/23/19 23:24 98.4 54 18 145/60 (88) 96 06/23/19 21:00 Room Air 06/23/19 17:20 71 149/95 06/23/19 16:00 98.0 71 19 149/95 (113) 95 06/23/19 12:00 98.9 57 18 186/68 (107) 94 06/23/19 09:00 Nasal Cannula 2.0 06/23/19 08:51 51 148/53 06/23/19 08:00 98.1 55 19 166/68 (100) 98 06/23/19 06:30 148/53 (84) 06/23/19 04:00 97.5 51 17 164/58 (93) 95 06/23/19 02:30 98.0 56 17 138/60 (86) 99 06/23/19 02:30 Nasal Cannula 2.0 06/23/19 02:00 98.5 56 18 123/54 98 Room Air 21 06/23/19 00:30 98.5 56 18 123/54 98 Room Air 21 06/22/19 23:00 98.5 57 18 144/76 98 Room Air 21 06/22/19 22:48 97.8 06/22/19 22:48 97.8 06/22/19 21:54 57 18 98 Room Air 21 06/22/19 21:45 57 18 Room Air 21 06/22/19 21:43 57 18 97 06/22/19 21:41 57 18 97 Room Air 21 06/22/19 20:52 97.9 68 16 140/70 (93) 98 Nasal Cannula Intake and Output 06/23/19 06/24/19 19:00 07:00 Intake Total 360 ml 655 ml Balance 360 ml 655 ml Intake Oral 360 ml 600 ml IV Total 55 ml # Voids 5 4 Labs Test 06/22/19 21:40 06/23/19 00:00 06/23/19 08:10 06/24/19 05:20 White Blood Count 7.6 K/UL (4.8-10.8) 9.5 K/UL (4.8-10.8) 8.1 K/UL (4.8-10.8) Red Blood Count 4.19 M/UL (4.20-5.40) 4.01 M/UL (4.20-5.40) 3.99 M/UL (4.20-5.40) Hemoglobin 14.2 G/DL (12.0-16.0) 13.8 G/DL (12.0-16.0) 13.1 G/DL (12.0-16.0) Hematocrit 42.8 % (37.0-47.0) 40.9 % (37.0-47.0) 40.7 % (37.0-47.0) Mean Corpuscular Volume 102 FL (80-99) 102 FL (80-99) 102 FL (80-99) Mean Corpuscular Hemoglobin 33.8 PG (27.0-31.0) 34.5 PG (27.0-31.0) 32.9 PG (27.0-31.0) Mean Corpuscular Hemoglobin Concent 33.2 G/DL (32.0-36.0) 33.8 G/DL (32.0-36.0) 32.2 G/DL (32.0-36.0) Red Cell Distribution Width 11.1 % (11.6-14.8) 11.4 % (11.6-14.8) 11.9 % (11.6-14.8) Platelet Count 191 K/UL (150-450) 169 K/UL (150-450) 178 K/UL (150-450) Mean Platelet Volume 6.4 FL (6.5-10.1) 6.0 FL (6.5-10.1) 5.7 FL (6.5-10.1) Neutrophils (%) (Auto) 69.8 % (45.0-75.0) 78.7 % (45.0-75.0) 68.7 % (45.0-75.0) Lymphocytes (%) (Auto) 17.6 % (20.0-45.0) 11.3 % (20.0-45.0) 19.6 % (20.0-45.0) Monocytes (%) (Auto) 8.8 % (1.0-10.0) 7.2 % (1.0-10.0) 8.8 % (1.0-10.0) Eosinophils (%) (Auto) 2.9 % (0.0-3.0) 2.1 % (0.0-3.0) 2.3 % (0.0-3.0) Basophils (%) (Auto) 0.9 % (0.0-2.0) 0.8 % (0.0-2.0) 0.6 % (0.0-2.0) Prothrombin Time 10.0 SEC (9.30-11.50) Prothromb Time International Ratio 0.9 (0.9-1.1) Activated Partial Thromboplast Time 26 SEC (23-33) Sodium Level 137 MMOL/L (136-145) 139 MMOL/L (136-145) 138 MMOL/L (136-145) Potassium Level 4.9 MMOL/L (3.5-5.1) 5.0 MMOL/L (3.5-5.1) 4.6 MMOL/L (3.5-5.1) Chloride Level 100 MMOL/L (98-107) 104 MMOL/L (98-107) 103 MMOL/L (98-107) Carbon Dioxide Level 33 MMOL/L (21-32) 29 MMOL/L (21-32) 31 MMOL/L (21-32) Anion Gap 4 mmol/L (5-15) 6 mmol/L (5-15) 4 mmol/L (5-15) Blood Urea Nitrogen 29 mg/dL (7-18) 24 mg/dL (7-18) 22 mg/dL (7-18) Creatinine 0.9 MG/DL (0.55-1.30) 0.8 MG/DL (0.55-1.30) 0.9 MG/DL (0.55-1.30) Estimat Glomerular Filtration Rate mL/min (>60) mL/min (>60) mL/min (>60) Glucose Level 117 MG/DL (74-106) 118 MG/DL (74-106) 111 MG/DL (74-106) Calcium Level 9.2 MG/DL (8.5-10.1) 9.3 MG/DL (8.5-10.1) 9.0 MG/DL (8.5-10.1) Magnesium Level 2.1 MG/DL (1.8-2.4) 2.0 MG/DL (1.8-2.4) Total Bilirubin 0.2 MG/DL (0.2-1.0) 0.2 MG/DL (0.2-1.0) Aspartate Amino Transf (AST/SGOT) 11 U/L (15-37) 11 U/L (15-37) Alanine Aminotransferase (ALT/SGPT) 14 U/L (12-78) 11 U/L (12-78) Alkaline Phosphatase 93 U/L (46-116) 78 U/L (46-116) Total Creatine Kinase 50 U/L (26-308) Troponin I 0.000 ng/mL (0.000-0.056) Total Protein 7.7 G/DL (6.4-8.2) 7.1 G/DL (6.4-8.2) Albumin 3.6 G/DL (3.4-5.0) 3.1 G/DL (3.4-5.0) Globulin 4.1 g/dL 4.0 g/dL Albumin/Globulin Ratio 0.9 (1.0-2.7) 0.8 (1.0-2.7) Lipase 129 U/L (73-393) Urine Color Pale yellow Urine Appearance Clear Urine pH 7 (4.5-8.0) Urine Specific [place] 1.010 (1.005-1.035) Urine Protein Negative (NEGATIVE) Urine Glucose (UA) Negative (NEGATIVE) Urine Ketones Negative (NEGATIVE) Urine Blood Negative (NEGATIVE) Urine Nitrite Positive (NEGATIVE) Urine Bilirubin Negative (NEGATIVE) Urine Urobilinogen Normal MG/DL (0.0-1.0) Urine Leukocyte Esterase 1+ (NEGATIVE) Urine RBC 0 /HPF (0 - 2) Urine WBC 5-10 /HPF (0 - 2) Urine Squamous Epithelial Cells Few /LPF (NONE/OCC) Urine Bacteria Many /HPF (NONE) Vitamin B12 Level 512 PG/ML (193-986) Folate 24.5 NG/ML (8.6-58.9) Thyroid Stimulating Hormone (TSH) 1.325 uiU/mL (0.358-3.740) Erythrocyte Sedimentation Rate 54 MM/HR (0-30) Phosphorus Level 3.3 MG/DL (2.5-4.9) C-Reactive Protein, Quantitative 2.9 mg/dL (0.00-0.90) Height (Feet): 5 Height (Inches): 3.00 Weight (Pounds): 170 Objective PE: Vitals: reviewed, stable General Appearance: NAD HEENT: normocephalic, atraumatic Neck: non-tender, normal alignment Respiratory/Chest: normal breath sounds bilaterally Cardiovascular/Chest: normal peripheral pulses, normal rate Abdomen: normal bowel sounds, soft, nontender Extremities: normal range of motion Jose Medeiros MD Jun 24, 2019 09:41
--- NOTE | 2019-06-24 11:20 | NUR ---
PT NOTE Received MD order for PT evaluation, medical record reviewed. Attempted to see patient for PT evaluation. Patient declining to participate with PT at this time, c/o pain rated at 10/10. Amparo CALVILLO notified, will follow up tomorrow.
[2019-06-24 12:00] VITALS: BP 139/56
--- NOTE | 2019-06-24 12:31 | GI Progress Note ---
Assessment/Plan Problems: (1) Abdominal pain ICD Codes: R10.9 - Unspecified abdominal pain SNOMED: 79989938 (2) Constipation ICD Codes: K59.00 - Constipation, unspecified SNOMED: 62898027 (3) Failure to thrive SNOMED: 49333231 Qualifiers: Qualified Codes: R62.7 - Adult failure to thrive (4) Chronic pain ICD Codes: G89.29 - Other chronic pain SNOMED: 34471484 Qualifiers: Qualified Codes: G89.29 - Other chronic pain Status: stable Status Narrative Discussed with Dr. Rangel. Assessment/Plan Advance diet as tolerated calorie count will consider marinol Pain management Begin bowel regimen of Colace plus MiraLAX Consider Senokot if has persistent constipation PPI Zofran as needed Follow labs Patient may benefit from a non formulary opioid induced constipation medication as an outpatient such as Movantik or Relistor. The patient was seen and examined at bedside and all new and available data was reviewed in the patients chart. I agree with the above findings, impression and plan. (Patient seen earlier today. Signature stamp does not reflect patient encounter time.). - Renato Rangel MD Subjective Gastrointestinal/Abdominal: Reports: no symptoms Objective Last 24 Hour Vital Signs Date Time Temp Pulse Resp B/P (MAP) Pulse Ox O2 Delivery O2 Flow Rate FiO2 06/24/19 09:00 Room Air 06/24/19 08:31 60 136/51 06/24/19 08:30 60 136/51 06/24/19 08:22 97.2 60 18 136/51 (79) 92 06/24/19 06:56 98.4 06/24/19 04:12 98.4 06/24/19 04:00 97.6 56 18 152/75 (100) 95 06/24/19 02:07 98.4 06/23/19 23:24 98.4 54 18 145/60 (88) 96 06/23/19 21:00 Room Air 06/23/19 17:20 71 149/95 06/23/19 16:00 98.0 71 19 149/95 (113) 95 Intake and Output 06/23/19 06/24/19 19:00 07:00 Intake Total 360 ml 655 ml Balance 360 ml 655 ml Intake Oral 360 ml 600 ml IV Total 55 ml # Voids 5 4 Laboratory Tests Test 06/24/19 05:20 White Blood Count 8.1 K/UL (4.8-10.8) Red Blood Count 3.99 M/UL (4.20-5.40) L Hemoglobin 13.1 G/DL (12.0-16.0) Hematocrit 40.7 % (37.0-47.0) Mean Corpuscular Volume 102 FL (80-99) H Mean Corpuscular Hemoglobin 32.9 PG (27.0-31.0) H Mean Corpuscular Hemoglobin Concent 32.2 G/DL (32.0-36.0) Red Cell Distribution Width 11.9 % (11.6-14.8) Platelet Count 178 K/UL (150-450) Mean Platelet Volume 5.7 FL (6.5-10.1) L Neutrophils (%) (Auto) 68.7 % (45.0-75.0) Lymphocytes (%) (Auto) 19.6 % (20.0-45.0) L Monocytes (%) (Auto) 8.8 % (1.0-10.0) Eosinophils (%) (Auto) 2.3 % (0.0-3.0) Basophils (%) (Auto) 0.6 % (0.0-2.0) Erythrocyte Sedimentation Rate 54 MM/HR (0-30) H Sodium Level 138 MMOL/L (136-145) Potassium Level 4.6 MMOL/L (3.5-5.1) Chloride Level 103 MMOL/L (98-107) Carbon Dioxide Level 31 MMOL/L (21-32) Anion Gap 4 mmol/L (5-15) L Blood Urea Nitrogen 22 mg/dL (7-18) H Creatinine 0.9 MG/DL (0.55-1.30) Estimat Glomerular Filtration Rate mL/min (>60) Glucose Level 111 MG/DL (74-106) H Calcium Level 9.0 MG/DL (8.5-10.1) Phosphorus Level 3.3 MG/DL (2.5-4.9) Magnesium Level 2.0 MG/DL (1.8-2.4) Total Bilirubin 0.2 MG/DL (0.2-1.0) Aspartate Amino Transf (AST/SGOT) 11 U/L (15-37) L Alanine Aminotransferase (ALT/SGPT) 11 U/L (12-78) L Alkaline Phosphatase 78 U/L (46-116) C-Reactive Protein, Quantitative 2.9 mg/dL (0.00-0.90) H Total Protein 7.1 G/DL (6.4-8.2) Albumin 3.1 G/DL (3.4-5.0) L Globulin 4.0 g/dL Albumin/Globulin Ratio 0.8 (1.0-2.7) L Height (Feet): 5 Height (Inches): 3.00 Weight (Pounds): 170 General Appearance: alert Cardiovascular: normal rate Abdominal Exam: soft Extremities: normal range of motion Antonio Dickinson NP Jun 24, 2019 12:31
--- NOTE | 2019-06-24 12:45 | Pulmonology Progress Note ---
Assessment/Plan Problems: (1) UTI (urinary tract infection) (2) Dysuria (3) COPD (chronic obstructive pulmonary disease) (4) Failure to thrive (0-17) (5) Schizophrenia (6) Chronic pain (7) Failure to thrive (8) Hypothyroidism Assessment/Plan add lactulose and colace continue abx respiratory treatment pt/ot dvt prophylaxis wants to go home Subjective ROS Limited/Unobtainable: No Constitutional: Reports: no symptoms HEENT: Repors: no symptoms Respiratory: Reports: no symptoms Allergies: Coded Allergies: No Known Allergies (Unverified , 06/22/19) Objective Last 24 Hour Vital Signs Date Time Temp Pulse Resp B/P (MAP) Pulse Ox O2 Delivery O2 Flow Rate FiO2 06/24/19 12:00 97.9 55 18 139/56 (83) 97 06/24/19 09:00 Room Air 06/24/19 08:31 60 136/51 06/24/19 08:30 60 136/51 06/24/19 08:22 97.2 60 18 136/51 (79) 92 06/24/19 06:56 98.4 06/24/19 04:12 98.4 06/24/19 04:00 97.6 56 18 152/75 (100) 95 06/24/19 02:07 98.4 06/23/19 23:24 98.4 54 18 145/60 (88) 96 06/23/19 21:00 Room Air 06/23/19 17:20 71 149/95 06/23/19 16:00 98.0 71 19 149/95 (113) 95 Intake and Output 06/23/19 06/24/19 19:00 07:00 Intake Total 360 ml 655 ml Balance 360 ml 655 ml Intake Oral 360 ml 600 ml IV Total 55 ml # Voids 5 4 General Appearance: WD/WN HEENT: normocephalic, anicteric Respiratory/Chest: chest wall non-tender, lungs clear, normal breath sounds Breasts: no masses Cardiovascular: normal peripheral pulses, normal rate Abdomen: normal bowel sounds, soft, non tender Genitourinary: normal external genitalia Extremities: no clubbing Skin: no rash Lymphatic: no neck adenopathy Microbiology Date/Time Source Procedure Growth Status 06/23/19 00:00 Urine,Clean Catch Urine Culture - Preliminary Gram Negative Bacillus 1 Resulted 06/23/19 00:00 Rectum VRE Culture - Final NO VANCOMYCIN RESISTANT ENTEROCOCCUS ... Complete Laboratory Tests 06/24/19 05:20: White Blood Count 8.1, Red Blood Count 3.99L, Hemoglobin 13.1, Hematocrit 40.7, Mean Corpuscular Volume 102H, Mean Corpuscular Hemoglobin 32.9H, Mean Corpuscular Hemoglobin Concent 32.2, Red Cell Distribution Width 11.9, Platelet Count 178, Mean Platelet Volume 5.7L, Neutrophils (%) (Auto) 68.7, Lymphocytes ( %) (Auto) 19.6L, Monocytes (%) (Auto) 8.8, Eosinophils (%) (Auto) 2.3, Basophils (%) (Auto) 0.6, Erythrocyte Sedimentation Rate 54H, Sodium Level 138, Potassium Level 4.6, Chloride Level 103, Carbon Dioxide Level 31, Anion Gap 4L, Blood Urea Nitrogen 22H, Creatinine 0.9, Estimat Glomerular Filtration Rate , Glucose Level 111H, Calcium Level 9.0, Phosphorus Level 3.3, Magnesium Level 2.0 , Total Bilirubin 0.2, Aspartate Amino Transf (AST/SGOT) 11L, Alanine Aminotransferase (ALT/SGPT) 11L, Alkaline Phosphatase 78, C-Reactive Protein, Quantitative 2.9H, Total Protein 7.1, Albumin 3.1L, Globulin 4.0, Albumin/ Globulin Ratio 0.8L Current Medications Medications (Trade) Dose Ordered Sig/Nay Route PRN Reason Start Time Stop Time Status Last Admin Dose Admin Acetaminophen (Tylenol) 650 mg Q4H PRN ORAL Mild Pain/Temp > 100.5 06/23/19 05:00 07/23/19 04:59 06/24/19 06:26 Amlodipine Besylate (Norvasc) 5 mg DAILY ORAL 06/24/19 09:00 07/24/19 08:59 06/24/19 08:31 Bisacodyl (Dulcolax) 5 mg DAILY PRN ORAL Constipation 06/23/19 05:00 07/23/19 04:59 06/23/19 21:11 Bisacodyl (Dulcolax) 10 mg DAILY PRN RECTAL Constipation 06/23/19 05:00 07/23/19 04:59 Bismuth Subsalicylate (Pepto-Bismol) 30 ml Q1H PRN ORAL upset stomach 06/23/19 06:30 07/23/19 04:59 Ceftriaxone Sodium 1 gm/ Dextrose 55 ml @ 110 mls/hr Q24H IVPB 06/23/19 22:00 06/30/19 21:59 06/23/19 21:10 Clonidine HCl (Catapres Tab) 0.1 mg QID PRN ORAL SBP ABOVE 160 06/23/19 21:25 07/23/19 21:24 Dextrose (Dextrose 50%) 25 ml Q30M PRN IV Hypoglycemia 06/23/19 06:15 07/23/19 06:14 Dextrose (Dextrose 50%) 50 ml Q30M PRN IV Hypoglycemia 06/23/19 06:15 07/23/19 06:14 Docusate Sodium (Colace) 250 mg TWICE A DAY ORAL 06/23/19 09:00 07/23/19 08:59 06/24/19 08:29 Famotidine (Pepcid) 20 mg QHS ORAL 06/23/19 21:00 07/23/19 20:59 06/23/19 20:40 Gabapentin (Neurontin) 600 mg Q12HR ORAL 06/23/19 09:00 07/23/19 05:59 06/24/19 08:31 Insulin Aspart (NovoLOG) BEFORE MEALS AND HS SUBQ 06/23/19 06:30 07/23/19 06:29 06/24/19 11:44 Levetiracetam (Keppra) 500 mg Q12HR ORAL 06/23/19 09:00 07/23/19 08:59 06/24/19 08:30 Levothyroxine Sodium (Synthroid) 25 mcg ACBREAKFAST ORAL 06/23/19 06:30 07/23/19 06:29 06/24/19 06:26 Lidocaine (Lidoderm 5% PATCH) 1 patch DAILY TDERMAL 06/23/19 09:00 07/23/19 08:59 06/24/19 08:32 Lorazepam (Ativan) 0.5 mg Q6H PRN ORAL For Anxiety 06/23/19 15:00 06/30/19 14:59 06/24/19 04:44 Magnesium Hydroxide (Mom) 30 ml DAILY PRN ORAL Constipation 06/23/19 05:00 07/23/19 04:59 Methadone HCl (Methadone HCl) 5 mg Q12HR ORAL 06/23/19 09:00 06/30/19 08:59 06/24/19 08:30 Metoprolol Tartrate (Lopressor) 25 mg BID ORAL 06/23/19 09:00 07/23/19 08:59 06/24/19 08:30 Morphine Sulfate (Morphine Sulfate) 2 mg Q4H PRN IVP Severe Pain (Pain Scale 7-10) 06/23/19 05:00 06/30/19 04:59 Ondansetron HCl (Zofran) 4 mg Q8H PRN ORAL Nausea & Vomiting 06/23/19 05:00 07/23/19 04:59 Oxycodone/ Acetaminophen (Percocet 10/325) 1 tab Q4H PRN ORAL Breakthrough Pain 06/23/19 05:00 06/30/19 04:59 06/24/19 01:37 Oxycodone/ Acetaminophen (Percocet 10/325) 1 tab QID PRN ORAL Severe Pain (Pain Scale 7-10) 06/23/19 05:30 06/30/19 05:29 06/24/19 11:39 Phenazopyridine HCl (Pyridium) 100 mg THREE TIMES A DAY ORAL 06/23/19 13:00 07/23/19 12:59 06/24/19 08:31 Quetiapine Fumarate (SEROquel) 50 mg TWICE A DAY ORAL 06/23/19 09:00 07/23/19 08:59 06/24/19 08:31 Sertraline HCl (Zoloft) 50 mg DAILY ORAL 06/23/19 09:00 07/23/19 08:59 06/24/19 08:32 Sodium Phosphate (Fleet's Sodium Phosl Enema) 133 ml DAILY PRN RECTAL Constipation 06/23/19 05:00 07/23/19 04:59 Tamsulosin HCl (Flomax) 0.4 mg BID ORAL 06/23/19 09:00 07/23/19 08:59 06/24/19 08:30 Denys Hendrix MD Jun 24, 2019 12:45
[2019-06-24] MEDS: Docusate 100mg cap ORAL SCH ×2 (12:56→18:06)
[2019-06-24] MEDS: Lactulose 20gm/30ml UDC ORAL SCH ×2 (13:00→18:08)
--- NOTE | 2019-06-24 14:15 | General Progress Note ---
Assessment/Plan Problem List: (1) Diabetes ICD Codes: E11.9 - Type 2 diabetes mellitus without complications SNOMED: 57413391 (2) EDUARDO (acute kidney injury) ICD Codes: N17.9 - Acute kidney failure, unspecified SNOMED: 6075695, 93152209 (3) HTN (hypertension) ICD Codes: I10 - Essential (primary) hypertension SNOMED: 87829605 (4) Bradyarrhythmia on pre-operative cardiovascular examination ICD Codes: Z01.810 - Encounter for preprocedural cardiovascular examination; I49.8 - Other specified cardiac arrhythmias SNOMED: 813301309 (5) COPD (chronic obstructive pulmonary disease) ICD Codes: J44.9 - Chronic obstructive pulmonary disease, unspecified SNOMED: 21253984 Qualifiers: Qualified Codes: J44.9 - Chronic obstructive pulmonary disease, unspecified (6) Schizophrenia ICD Codes: F20.9 - Schizophrenia, unspecified SNOMED: 38517873 Qualifiers: Qualified Codes: F20.9 - Schizophrenia, unspecified (7) Chronic pain ICD Codes: G89.29 - Other chronic pain SNOMED: [id number] Qualifiers: Qualified Codes: G89.29 - Other chronic pain (8) Failure to thrive SNOMED: [id number] Qualifiers: Qualified Codes: R62.7 - Adult failure to thrive Status: stable, progressing Assessment/Plan: pt diet cardio eval cbc bmp am Subjective Allergies: Coded Allergies: No Known Allergies (Unverified , 06/22/19) All Systems: reviewed and negative except above Subjective sl anxious in bed Objective Last 24 Hour Vital Signs Date Time Temp Pulse Resp B/P (MAP) Pulse Ox O2 Delivery O2 Flow Rate FiO2 06/24/19 12:00 97.9 55 18 139/56 (83) 97 06/24/19 09:00 Room Air 06/24/19 08:31 60 136/51 06/24/19 08:30 60 136/51 06/24/19 08:22 97.2 60 18 136/51 (79) 92 06/24/19 06:56 98.4 06/24/19 04:12 98.4 06/24/19 04:00 97.6 56 18 152/75 (100) 95 06/24/19 02:07 98.4 06/23/19 23:24 98.4 54 18 145/60 (88) 96 06/23/19 21:00 Room Air 06/23/19 17:20 71 149/95 06/23/19 16:00 98.0 71 19 149/95 (113) 95 Intake and Output 06/23/19 06/24/19 19:00 07:00 Intake Total 360 ml 655 ml Balance 360 ml 655 ml Intake Oral 360 ml 600 ml IV Total 55 ml # Voids 5 4 Laboratory Tests 06/24/19 05:20: White Blood Count 8.1, Red Blood Count 3.99L, Hemoglobin 13.1, Hematocrit 40.7, Mean Corpuscular Volume 102H, Mean Corpuscular Hemoglobin 32.9H, Mean Corpuscular Hemoglobin Concent 32.2, Red Cell Distribution Width 11.9, Platelet Count 178, Mean Platelet Volume 5.7L, Neutrophils (%) (Auto) 68.7, Lymphocytes ( %) (Auto) 19.6L, Monocytes (%) (Auto) 8.8, Eosinophils (%) (Auto) 2.3, Basophils (%) (Auto) 0.6, Erythrocyte Sedimentation Rate 54H, Sodium Level 138, Potassium Level 4.6, Chloride Level 103, Carbon Dioxide Level 31, Anion Gap 4L, Blood Urea Nitrogen 22H, Creatinine 0.9, Estimat Glomerular Filtration Rate , Glucose Level 111H, Calcium Level 9.0, Phosphorus Level 3.3, Magnesium Level 2.0 , Total Bilirubin 0.2, Aspartate Amino Transf (AST/SGOT) 11L, Alanine Aminotransferase (ALT/SGPT) 11L, Alkaline Phosphatase 78, C-Reactive Protein, Quantitative 2.9H, Total Protein 7.1, Albumin 3.1L, Globulin 4.0, Albumin/ Globulin Ratio 0.8L Height (Feet): 5 Height (Inches): 3.00 Weight (Pounds): 170 General Appearance: lethargic EENT: normal ENT inspection Neck: normal alignment Cardiovascular: normal peripheral pulses, normal rate, regular rhythm Respiratory/Chest: chest wall non-tender, lungs clear, normal breath sounds Abdomen: normal bowel sounds, non tender, soft Extremities: normal inspection Edema: no edema noted Arm (L), no edema noted Arm (R), no edema noted Leg (L), no edema noted Leg (R), no edema noted Pedal (L), no edema noted Pedal (R), no edema noted Generalized Neurologic: motor weakness Skin: normal pigmentation, warm/dry Ru Barreto DO Jun 24, 2019 14:15
[2019-06-24 16:00] VITALS: BP 132/80
--- NOTE | 2019-06-24 16:00 | Progress Note ---
DATE: 06/24/2019 SUBJECTIVE: This is an 89-year-old female, failure to thrive. She is very confused, disorganized, extremely mood labile. feelings of helplessness, hopelessness, low energy, poor appetite, loss of interest in activity. Still very angry, irritable, agitated, extremely mood labile, psychosis, and paranoid delusions. MENTAL STATUS EXAMINATION: This is an 89-year-old female. Appearance is disheveled. Attitude, irritable and agitated. Affect, guarded and restricted. Intellect poor. Mood, depressed and anxious. Motor activity, psychomotor agitation. Insight and judgment is poor. DIAGNOSIS: Paranoid schizophrenia, acute exacerbation, rule out dementia with psychosis. PLAN: Continue Zoloft 50 mg a day, Seroquel 50 twice a day, Ativan 0.5 mg every 6 hours p.r.n. anxiety and agitation, Neurontin 300 q.12 hours. A 20 minutes of cognitive behavioral therapy to help her identify automatic negative thoughts, help her convert those negative thoughts to more positive thoughts to reduce depression, anxiety, suicidality. A 20 minutes of cognitive behavioral therapy provided help her have a more adaptive behavioral pattern. Chart reviewed. Discussed with staff. The patient is seen and assessed at bedside. Monique Morrell M.D. DR: NEVAEH JOB#: [id number] CC:
--- NOTE | 2019-06-24 17:19 | Cardiology Report ---
APPROVED REPORT EXAM: Two-dimensional and M-mode echocardiogram with Doppler and color Doppler. INDICATION Dizziness and Vertigo M-Mode DIMENSIONS IVSd1.1 (0.7-1.1cm)Left Atrium (MM)3.2 (1.6-4.0cm) LVDd3.8 (3.5-5.6cm)Aortic Root2.8 (2.0-3.7cm) PWd1.1 (0.7-1.1cm)Aortic Cusp Exc.1.6 (1.5-2.0cm) LVDs2.2 (2.5-4.0cm) PWs1.3 cm Technically difficult study due to aggressive, combative patient. Normal left ventricular chamber size, hyperdynamic systolic function and wall motion to extent visualized. Left ventricular ejection fraction estimated to be 70-75%. Study quality precludes accurate assessment of regional wall motion. Mild left ventricular hypertrophy by 2-D. No evidence of pericardial effusion. All other cardiac chamber sizes are within normal limits. Moderate focal aortic valve sclerosis with adequate cusp excursion. Thickened mitral valve leaflets with normal excursion. Mitral annulus and aortic root calcification. Pulmonic valve not well visualized. Normal tricuspid valve structure. IVC at normal size with physiologic collapse. A color flow and spectral Doppler study was performed and revealed: Trace aortic regurgitation. Mild mitral regurgitation. Mitral diastolic velocities suggest reduced left ventricular relaxation c/w mild LV diastolic dysfunction (Grade I). Mild tricuspid regurgitation. Tricuspid systolic velocities suggests peak right ventricular systolic pressure of 46 mmHg, consistent with moderate pulmonary hypertension. Pulmonic regurgitation present.
[2019-06-24 17:58] VITALS: BP 123/44
--- NOTE | 2019-06-24 19:00 | NUR ---
NURSE NOTES: patient resting no complaints of pain at this time.Call light within reach.
--- NOTE | 2019-06-24 19:26 | NUR ---
HAND-OFF: Report given to FLACO CALVILLO.
--- NOTE | 2019-06-24 19:53 | NUR ---
NURSE NOTES: Received patient awake,alert,verbal,ambulatory,complained of chronic back pain,subsequently given prn medication for pain.
[2019-06-24 20:00] VITALS: BP 158/69
[2019-06-24] MEDS: cefTRIAXone 1 GM in D5W 55 ML IVPB SCH (21:17)
[2019-06-24] MEDS: Bismuth Subsalicylate 30ml ORAL PRN (21:25)
[2019-06-24] MEDS: Bisacodyl EC 5mg tab ORAL PRN (21:26)
[2019-06-25 00:02] VITALS: BP 109/66
[2019-06-25 04:00] VITALS: BP 175/76
[2019-06-25] MEDS: Levothyroxine 25mcg tab ORAL SCH (05:35)
[2019-06-25] MEDS: NovoLOG Insulin Flexpen SUBQ SCH ×4 (06:14→20:46)
[2019-06-25 06:57] LABS: BASOPHILS % (AUTO) 0.7 % (0.0-2.0); EOSINOPHILS % (AUTO) 2.4 % (0.0-3.0); HEMATOCRIT 41.9 % (37.0-47.0); HEMOGLOBIN 13.6 G/DL (12.0-16.0); LYMPHOCYTES % (AUTO) 17.4 % (20.0-45.0); MEAN CORPUSCULAR VOLUME 101 FL (80-99); MONOCYTES % (AUTO) 9.4 % (1.0-10.0); NEUTROPHILS % (AUTO) 70.2 % (45.0-75.0); PLATELET COUNT 202 K/UL (150-450); RED BLOOD COUNT 4.14 M/UL (4.20-5.40); RED CELL DISTRIBUTION WIDTH 11.8 % (11.6-14.8); WHITE BLOOD COUNT 7.4 K/UL (4.8-10.8)
[2019-06-25 07:23] LABS: ANION GAP 8 mmol/L (5-15); BLOOD UREA NITROGEN 17 mg/dL (7-18); CALCIUM 9.7 MG/DL (8.5-10.1); CARBON DIOXIDE 27 MMOL/L (21-32); CHLORIDE 104 MMOL/L (98-107); CREATININE 0.7 MG/DL (0.55-1.30); POTASSIUM 4.1 MMOL/L (3.5-5.1); SODIUM 139 MMOL/L (136-145)
--- NOTE | 2019-06-25 07:27 | NUR ---
HAND-OFF: Report given to Amparo Garcia RN.
--- NOTE | 2019-06-25 07:46 | NUR ---
NURSE NOTES: Patient is awake and alert,patient requesting pain medication for back pain,will medicate as ordered.Call light within reach.
[2019-06-25 08:00] VITALS: BP 146/65
[2019-06-25] MEDS: Metoprolol 25mg tab ORAL SCH ×2 (08:36→17:36)
[2019-06-25] MEDS: Tamsulosin 0.4mg cap ORAL SCH ×2 (08:37→17:36)
[2019-06-25] MEDS: Docusate 100mg cap ORAL SCH ×3 (08:37→17:36)
[2019-06-25] MEDS: Sertraline 50mg tab ORAL SCH (08:38)
[2019-06-25] MEDS: Lactulose 20gm/30ml UDC ORAL SCH ×3 (08:43→17:35)
--- NOTE | 2019-06-25 10:45 | NUR ---
PT EVALUATION NOTE Received MD order for PT evaluation, medical record reviewed. Patient observed ambulating independently in the hallway without an assistive device. Skilled inpatient PT intervention not warranted as patient is independent with functional mobility. Amparo CALVILLO notified.
--- NOTE | 2019-06-25 11:49 | NUR ---
NURSE NOTES: Received patient awake,alert,oriented x3, verbally abusive , no sign of distress,ambulatory,no sign of distress, HL patent, on fall precaution.kept clean dry and comfortable , needs met and anticipated andressa frank
[2019-06-25 12:00] VITALS: BP 139/70
--- NOTE | 2019-06-25 12:10 | General Progress Note ---
Assessment/Plan Problem List: (1) Diabetes ICD Codes: E11.9 - Type 2 diabetes mellitus without complications SNOMED: 74595393 (2) EDUARDO (acute kidney injury) ICD Codes: N17.9 - Acute kidney failure, unspecified SNOMED: 7015826, 17001548 (3) HTN (hypertension) ICD Codes: I10 - Essential (primary) hypertension SNOMED: 56561624 (4) Bradyarrhythmia on pre-operative cardiovascular examination ICD Codes: Z01.810 - Encounter for preprocedural cardiovascular examination; I49.8 - Other specified cardiac arrhythmias SNOMED: 315127116 (5) COPD (chronic obstructive pulmonary disease) ICD Codes: J44.9 - Chronic obstructive pulmonary disease, unspecified SNOMED: 18209405 Qualifiers: Qualified Codes: J44.9 - Chronic obstructive pulmonary disease, unspecified (6) Schizophrenia ICD Codes: F20.9 - Schizophrenia, unspecified SNOMED: 24016972 Qualifiers: Qualified Codes: F20.9 - Schizophrenia, unspecified (7) Chronic pain ICD Codes: G89.29 - Other chronic pain SNOMED: 82014654 Qualifiers: Qualified Codes: G89.29 - Other chronic pain (8) Failure to thrive SNOMED: 68625396 Qualifiers: Qualified Codes: R62.7 - Adult failure to thrive Status: stable, progressing Assessment/Plan: pt diet cardio eval dc if clear Subjective Constitutional: Reports: weakness Allergies: Coded Allergies: No Known Allergies (Unverified , 06/22/19) All Systems: reviewed and negative except above Subjective sl anxious in bed Objective Last 24 Hour Vital Signs Date Time Temp Pulse Resp B/P (MAP) Pulse Ox O2 Delivery O2 Flow Rate FiO2 06/25/19 11:59 Room Air 06/25/19 09:00 Room Air 06/25/19 08:36 66 146/65 06/25/19 08:35 66 146/65 06/25/19 08:00 97.3 66 21 146/65 (92) 95 06/25/19 04:32 98.7 06/25/19 04:06 175/76 06/25/19 04:00 97.4 64 18 175/76 (109) 98 06/25/19 00:02 98.7 68 18 109/66 (80) 95 06/24/19 21:00 Room Air 06/24/19 20:00 97.9 55 16 158/69 (98) 95 06/24/19 17:58 63 123/44 (70) 06/24/19 17:56 63 123/44 06/24/19 16:00 98.1 54 17 132/80 (97) 94 Intake and Output 06/24/19 06/25/19 19:00 07:00 Intake Total 500 ml 655 ml Balance 500 ml 655 ml Intake Oral 500 ml 600 ml IV Total 55 ml # Voids 4 4 # Bowel Movements 1 Laboratory Tests 06/25/19 05:15: White Blood Count 7.4, Red Blood Count 4.14L, Hemoglobin 13.6, Hematocrit 41.9, Mean Corpuscular Volume 101H, Mean Corpuscular Hemoglobin 32.9H, Mean Corpuscular Hemoglobin Concent 32.5, Red Cell Distribution Width 11.8, Platelet Count 202, Mean Platelet Volume 6.0L, Neutrophils (%) (Auto) 70.2, Lymphocytes ( %) (Auto) 17.4L, Monocytes (%) (Auto) 9.4, Eosinophils (%) (Auto) 2.4, Basophils (%) (Auto) 0.7, Sodium Level 139, Potassium Level 4.1, Chloride Level 104, Carbon Dioxide Level 27, Anion Gap 8, Blood Urea Nitrogen 17, Creatinine 0.7, Estimat Glomerular Filtration Rate , Glucose Level 100, Calcium Level 9.7, Phosphorus Level 3.0, Magnesium Level 2.0 Height (Feet): 5 Height (Inches): 3.00 Weight (Pounds): 170 General Appearance: lethargic EENT: normal ENT inspection Neck: normal alignment Cardiovascular: normal peripheral pulses, normal rate, regular rhythm Respiratory/Chest: chest wall non-tender, lungs clear, normal breath sounds Abdomen: normal bowel sounds, non tender, soft Extremities: normal inspection Edema: no edema noted Arm (L), no edema noted Arm (R), no edema noted Leg (L), no edema noted Leg (R), no edema noted Pedal (L), no edema noted Pedal (R), no edema noted Generalized Neurologic: motor weakness Skin: normal pigmentation, warm/dry Ru Barreto DO Jun 25, 2019 12:09
--- NOTE | 2019-06-25 12:32 | Pulmonology Progress Note ---
Assessment/Plan Problems: (1) UTI (urinary tract infection) (2) Dysuria (3) COPD (chronic obstructive pulmonary disease) (4) Failure to thrive (0-17) (5) Schizophrenia (6) Chronic pain (7) Failure to thrive (8) Hypothyroidism Assessment/Plan doing better respiratory treatment pt/ot dvt prophylaxis wants to go home Subjective ROS Limited/Unobtainable: No Constitutional: Reports: no symptoms HEENT: Repors: no symptoms Allergies: Coded Allergies: No Known Allergies (Unverified , 06/22/19) Objective Last 24 Hour Vital Signs Date Time Temp Pulse Resp B/P (MAP) Pulse Ox O2 Delivery O2 Flow Rate FiO2 06/25/19 12:00 98.1 67 18 139/70 (93) 95 06/25/19 11:59 Room Air 06/25/19 09:00 Room Air 06/25/19 08:36 66 146/65 06/25/19 08:35 66 146/65 06/25/19 08:00 97.3 66 21 146/65 (92) 95 06/25/19 04:32 98.7 06/25/19 04:06 175/76 06/25/19 04:00 97.4 64 18 175/76 (109) 98 06/25/19 00:02 98.7 68 18 109/66 (80) 95 06/24/19 21:00 Room Air 06/24/19 20:00 97.9 55 16 158/69 (98) 95 06/24/19 17:58 63 123/44 (70) 06/24/19 17:56 63 123/44 06/24/19 16:00 98.1 54 17 132/80 (97) 94 Intake and Output 06/24/19 06/25/19 19:00 07:00 Intake Total 500 ml 655 ml Balance 500 ml 655 ml Intake Oral 500 ml 600 ml IV Total 55 ml # Voids 4 4 # Bowel Movements 1 General Appearance: WD/WN HEENT: normocephalic, atraumatic Respiratory/Chest: chest wall non-tender, no respiratory distress Breasts: no masses Cardiovascular: normal peripheral pulses, no JVD Abdomen: no organomegaly Extremities: no cyanosis, no clubbing Microbiology Date/Time Source Procedure Growth Status 06/23/19 00:00 Nasal Nares MRSA Culture - Final NO METHICILLIN RESISTANT STAPH AUREUS... Complete 06/23/19 00:00 Urine,Clean Catch Urine Culture - Final Escherichia Coli Complete 06/23/19 00:00 Rectum VRE Culture - Final NO VANCOMYCIN RESISTANT ENTEROCOCCUS ... Complete Laboratory Tests 06/25/19 05:15: White Blood Count 7.4, Red Blood Count 4.14L, Hemoglobin 13.6, Hematocrit 41.9, Mean Corpuscular Volume 101H, Mean Corpuscular Hemoglobin 32.9H, Mean Corpuscular Hemoglobin Concent 32.5, Red Cell Distribution Width 11.8, Platelet Count 202, Mean Platelet Volume 6.0L, Neutrophils (%) (Auto) 70.2, Lymphocytes ( %) (Auto) 17.4L, Monocytes (%) (Auto) 9.4, Eosinophils (%) (Auto) 2.4, Basophils (%) (Auto) 0.7, Sodium Level 139, Potassium Level 4.1, Chloride Level 104, Carbon Dioxide Level 27, Anion Gap 8, Blood Urea Nitrogen 17, Creatinine 0.7, Estimat Glomerular Filtration Rate , Glucose Level 100, Calcium Level 9.7, Phosphorus Level 3.0, Magnesium Level 2.0 Current Medications Medications (Trade) Dose Ordered Sig/Nay Route PRN Reason Start Time Stop Time Status Last Admin Dose Admin Acetaminophen (Tylenol) 650 mg Q4H PRN ORAL Mild Pain/Temp > 100.5 06/23/19 05:00 07/23/19 04:59 06/24/19 06:26 Amlodipine Besylate (Norvasc) 5 mg DAILY ORAL 06/24/19 09:00 07/24/19 08:59 06/25/19 08:35 Bisacodyl (Dulcolax) 5 mg DAILY PRN ORAL Constipation 06/23/19 05:00 07/23/19 04:59 06/24/19 21:26 Bisacodyl (Dulcolax) 10 mg DAILY PRN RECTAL Constipation 06/23/19 05:00 07/23/19 04:59 Bismuth Subsalicylate (Pepto-Bismol) 30 ml Q1H PRN ORAL upset stomach 06/23/19 06:30 07/23/19 04:59 06/24/19 21:25 Ceftriaxone Sodium 1 gm/ Dextrose 55 ml @ 110 mls/hr Q24H IVPB 06/23/19 22:00 06/30/19 21:59 06/24/19 21:17 Clonidine HCl (Catapres Tab) 0.1 mg QID PRN ORAL SBP ABOVE 160 06/23/19 21:25 07/23/19 21:24 06/25/19 04:06 Dextrose (Dextrose 50%) 25 ml Q30M PRN IV Hypoglycemia 06/23/19 06:15 07/23/19 06:14 Dextrose (Dextrose 50%) 50 ml Q30M PRN IV Hypoglycemia 06/23/19 06:15 07/23/19 06:14 Docusate Sodium (Colace) 100 mg THREE TIMES A DAY ORAL 06/24/19 13:00 07/24/19 12:59 06/25/19 08:37 Famotidine (Pepcid) 20 mg QHS ORAL 06/23/19 21:00 07/23/19 20:59 06/24/19 21:17 Gabapentin (Neurontin) 600 mg Q12HR ORAL 06/24/19 21:00 07/24/19 20:59 06/25/19 08:37 Insulin Aspart (NovoLOG) BEFORE MEALS AND HS SUBQ 06/23/19 06:30 07/23/19 06:29 06/25/19 12:04 Lactulose (Cephulac) 30 gm THREE TIMES A DAY ORAL 06/24/19 13:00 07/24/19 12:59 06/25/19 08:43 Levetiracetam (Keppra) 500 mg Q12HR ORAL 06/23/19 09:00 07/23/19 08:59 06/25/19 08:36 Levothyroxine Sodium (Synthroid) 25 mcg ACBREAKFAST ORAL 06/23/19 06:30 07/23/19 06:29 06/25/19 05:35 Lidocaine (Lidoderm 5% PATCH) 1 patch DAILY TDERMAL 06/23/19 09:00 07/23/19 08:59 06/25/19 08:38 Lorazepam (Ativan) 0.5 mg Q6H PRN ORAL For Anxiety 06/23/19 15:00 06/30/19 14:59 06/24/19 19:57 Magnesium Hydroxide (Mom) 30 ml DAILY PRN ORAL Constipation 06/23/19 05:00 07/23/19 04:59 Methadone HCl (Methadone HCl) 5 mg Q12HR ORAL 06/23/19 09:00 06/30/19 08:59 06/25/19 10:15 Metoprolol Tartrate (Lopressor) 25 mg BID ORAL 06/23/19 09:00 07/23/19 08:59 06/25/19 08:36 Mineral Oil (Fleet's Mineral Oil Enema) 133 ml EVERY OTHER DAY RECTAL 06/26/19 09:00 07/26/19 08:59 Morphine Sulfate (Morphine Sulfate) 2 mg Q4H PRN IVP Severe Pain (Pain Scale 7-10) 06/23/19 05:00 06/30/19 04:59 Nicotine (Nicoderm) 1 patch Q24H TDERMAL 06/24/19 16:00 07/24/19 15:59 06/24/19 18:07 Ondansetron HCl (Zofran) 4 mg Q8H PRN ORAL Nausea & Vomiting 06/23/19 05:00 07/23/19 04:59 Oxycodone/ Acetaminophen (Percocet 10/325) 1 tab Q4H PRN ORAL Breakthrough Pain 06/23/19 05:00 06/30/19 04:59 06/25/19 08:39 Oxycodone/ Acetaminophen (Percocet 10/325) 1 tab QID PRN ORAL Severe Pain (Pain Scale 7-10) 06/23/19 05:30 06/30/19 05:29 06/24/19 11:39 Phenazopyridine HCl (Pyridium) 100 mg THREE TIMES A DAY ORAL 06/23/19 13:00 07/23/19 12:59 06/25/19 08:37 Quetiapine Fumarate (SEROquel) 50 mg TWICE A DAY ORAL 06/23/19 09:00 07/23/19 08:59 06/25/19 08:52 Sertraline HCl (Zoloft) 50 mg DAILY ORAL 06/23/19 09:00 07/23/19 08:59 06/25/19 08:38 Sodium Phosphate (Fleet's Sodium Phosl Enema) 133 ml DAILY PRN RECTAL Constipation 06/23/19 05:00 07/23/19 04:59 Tamsulosin HCl (Flomax) 0.4 mg BID ORAL 06/23/19 09:00 07/23/19 08:59 06/25/19 08:37 Denys Hendrix MD Jun 25, 2019 12:32
--- NOTE | 2019-06-25 13:27 | GI Progress Note ---
Assessment/Plan Problems: (1) Abdominal pain ICD Codes: R10.9 - Unspecified abdominal pain SNOMED: 16879718 (2) Constipation ICD Codes: K59.00 - Constipation, unspecified SNOMED: 44730145 (3) Failure to thrive SNOMED: 88278103 Qualifiers: Qualified Codes: R62.7 - Adult failure to thrive (4) Chronic pain ICD Codes: G89.29 - Other chronic pain SNOMED: 15603707 Qualifiers: Qualified Codes: G89.29 - Other chronic pain Status: doing well Status Narrative Discussed with Dr. Rangel. Assessment/Plan Advance diet as tolerated calorie count in progress, will consider marinol Pain management Begin bowel regimen of Colace plus MiraLAX Consider Senokot if has persistent constipation PPI Zofran as needed Follow labs Patient may benefit from a non formulary opioid induced constipation medication as an outpatient such as Movantik or Relistor. The patient was seen and examined at bedside and all new and available data was reviewed in the patients chart. I agree with the above findings, impression and plan. (Patient seen earlier today. Signature stamp does not reflect patient encounter time.). - Renato Rangel MD Subjective Subjective patient states she can eat, but dislikes food Objective Last 24 Hour Vital Signs Date Time Temp Pulse Resp B/P (MAP) Pulse Ox O2 Delivery O2 Flow Rate FiO2 06/25/19 12:00 98.1 67 18 139/70 (93) 95 06/25/19 11:59 Room Air 06/25/19 09:00 Room Air 06/25/19 08:36 66 146/65 06/25/19 08:35 66 146/65 06/25/19 08:00 97.3 66 21 146/65 (92) 95 06/25/19 04:32 98.7 06/25/19 04:06 175/76 06/25/19 04:00 97.4 64 18 175/76 (109) 98 06/25/19 00:02 98.7 68 18 109/66 (80) 95 06/24/19 21:00 Room Air 06/24/19 20:00 97.9 55 16 158/69 (98) 95 06/24/19 17:58 63 123/44 (70) 06/24/19 17:56 63 123/44 06/24/19 16:00 98.1 54 17 132/80 (97) 94 Intake and Output 06/24/19 06/25/19 19:00 07:00 Intake Total 500 ml 655 ml Balance 500 ml 655 ml Intake Oral 500 ml 600 ml IV Total 55 ml # Voids 4 4 # Bowel Movements 1 Laboratory Tests Test 06/25/19 05:15 White Blood Count 7.4 K/UL (4.8-10.8) Red Blood Count 4.14 M/UL (4.20-5.40) L Hemoglobin 13.6 G/DL (12.0-16.0) Hematocrit 41.9 % (37.0-47.0) Mean Corpuscular Volume 101 FL (80-99) H Mean Corpuscular Hemoglobin 32.9 PG (27.0-31.0) H Mean Corpuscular Hemoglobin Concent 32.5 G/DL (32.0-36.0) Red Cell Distribution Width 11.8 % (11.6-14.8) Platelet Count 202 K/UL (150-450) Mean Platelet Volume 6.0 FL (6.5-10.1) L Neutrophils (%) (Auto) 70.2 % (45.0-75.0) Lymphocytes (%) (Auto) 17.4 % (20.0-45.0) L Monocytes (%) (Auto) 9.4 % (1.0-10.0) Eosinophils (%) (Auto) 2.4 % (0.0-3.0) Basophils (%) (Auto) 0.7 % (0.0-2.0) Sodium Level 139 MMOL/L (136-145) Potassium Level 4.1 MMOL/L (3.5-5.1) Chloride Level 104 MMOL/L (98-107) Carbon Dioxide Level 27 MMOL/L (21-32) Anion Gap 8 mmol/L (5-15) Blood Urea Nitrogen 17 mg/dL (7-18) Creatinine 0.7 MG/DL (0.55-1.30) Estimat Glomerular Filtration Rate mL/min (>60) Glucose Level 100 MG/DL (74-106) Calcium Level 9.7 MG/DL (8.5-10.1) Phosphorus Level 3.0 MG/DL (2.5-4.9) Magnesium Level 2.0 MG/DL (1.8-2.4) Height (Feet): 5 Height (Inches): 3.00 Weight (Pounds): 170 General Appearance: WD/WN, no apparent distress, alert Cardiovascular: normal rate Respiratory/Chest: normal breath sounds, no respiratory distress Abdominal Exam: normal bowel sounds, non tender, soft Extremities: normal range of motion, non-tender Antonio Dickinson NP Jun 25, 2019 13:27
[2019-06-25] MEDS: LORazepam 0.5mg tab ORAL PRN ×2 (14:06→20:46)
--- NOTE | 2019-06-25 14:49 | NUR ---
DISCHARGE PLANNING DISCHARGE ORDER NOTED Patient has been accepted to; [facility] [address] [place] [address] Bed: 5 Longterm for Nurse to Nurse report [facility] ETA for transportation: 16:00
[2019-06-25] MEDS ORDERED: COLACE100 MG ORAL (15:01)
[2019-06-25] MEDS ORDERED: NICODERM CQ1 EAC1 TD (15:02)
[2019-06-25] MEDS ORDERED: PHENAZOPYRIDIN100 MG ORAL (15:06)
[2019-06-25] MEDS ORDERED: LACTULOSE10 GM/153 PO (15:08)
--- NOTE | 2019-06-25 15:16 | NUR ---
nurse notes patient made aware regarding plan of care and stated I dont want to be discharge today , I dont want to go back yet I'm still sick, paged Dr Barreto stated ''ok to hold discharge '' andressa frank
[2019-06-25 16:00] VITALS: BP 126/53
--- NOTE | 2019-06-25 16:00 | Progress Note ---
DATE: 06/25/2019 SUBJECTIVE: This is an 89-year-old female patient with failure to thrive. This patient continues to have some altered mental status, some confusion, high levels of anxiety, depression, and some psychosis as well worsened by stress of her medical illness and . That is why daily psychiatric consultation is requested for this patient. MENTAL STATUS EXAMINATION: This is an 89-year-old female. Appearance is disheveled. Attitude, irritable and agitated. Affect, guarded and restricted. Intellect poor. Mood, depressed and anxious. Motor activity, psychomotor agitation. Attention span is poor. Orientation x2. Speech is pressured. Thought process, disorganized and illogical. Insight and judgment is poor. DIAGNOSIS: Major depressive disorder, mild, recurrent with psychotic features, rule out dementia with psychosis. PLAN: Treat her with Seroquel 50 mg twice a day and also Zoloft 50 mg daily and Neurontin at 600 mg q.12 hours and Ativan 0.5 mg every 6 hours p.r.n. anxiety and agitation. Provided with 20 minutes of cognitive behavioral therapy and encouraged to interact appropriately with staff and other patients. 20 minutes of cognitive behavioral therapy provided to help her identify automatic negative thoughts and help her convert negative thoughts to more positive thoughts to reduce depression, anxiety, and suicidality. Chart reviewed and discussed with staff. Seen and assessed at bedside. Monique Morrell M.D. DR: NEVAEH JOB#: [id number] CC:
[2019-06-25] MEDS: Bisacodyl EC 5mg tab ORAL PRN (17:50)
[2019-06-25] MEDS: Bismuth Subsalicylate 30ml ORAL PRN (18:43)
--- NOTE | 2019-06-25 18:57 | NUR ---
HAND-OFF: Report given to RAJINDER Mcgill Resting comfortably in bed, patient free from injury rajinder frank
--- NOTE | 2019-06-25 18:57 | Cardiology Progress Note ---
Assessment/Plan Assessment/Plan 1. Presyncope, continue hydration, 2D echo showed normal LV systolic function with LVEF at 70%. 2. Hypertension, well controlled, continue amlodipine and metoprolol, also on alpha-blockers. 3. Chronic obstructive pulmonary disease. 4. History of psychiatric disorder. Subjective Subjective No cardiac events reported. Objective Last 24 Hour Vital Signs Date Time Temp Pulse Resp B/P (MAP) Pulse Ox O2 Delivery O2 Flow Rate FiO2 06/25/19 17:36 61 126/53 06/25/19 16:00 98.6 61 17 126/53 (77) 93 06/25/19 12:00 98.1 67 18 139/70 (93) 95 06/25/19 11:59 Room Air 06/25/19 09:00 Room Air 06/25/19 08:36 66 146/65 06/25/19 08:35 66 146/65 06/25/19 08:00 97.3 66 21 146/65 (92) 95 06/25/19 04:32 98.7 06/25/19 04:06 175/76 06/25/19 04:00 97.4 64 18 175/76 (109) 98 06/25/19 00:02 98.7 68 18 109/66 (80) 95 06/24/19 21:00 Room Air 06/24/19 20:00 97.9 55 16 158/69 (98) 95 Intake and Output 06/24/19 06/25/19 19:00 07:00 Intake Total 500 ml 655 ml Balance 500 ml 655 ml Intake Oral 500 ml 600 ml IV Total 55 ml # Voids 4 4 # Bowel Movements 1 2D Echo: LVEF 70%, Grade I LVDD, RVSP 46 mmHg, Mild MR, Mild DC. Laboratory Tests Test 06/25/19 05:15 White Blood Count 7.4 K/UL (4.8-10.8) Red Blood Count 4.14 M/UL (4.20-5.40) L Hemoglobin 13.6 G/DL (12.0-16.0) Hematocrit 41.9 % (37.0-47.0) Mean Corpuscular Volume 101 FL (80-99) H Mean Corpuscular Hemoglobin 32.9 PG (27.0-31.0) H Mean Corpuscular Hemoglobin Concent 32.5 G/DL (32.0-36.0) Red Cell Distribution Width 11.8 % (11.6-14.8) Platelet Count 202 K/UL (150-450) Mean Platelet Volume 6.0 FL (6.5-10.1) L Neutrophils (%) (Auto) 70.2 % (45.0-75.0) Lymphocytes (%) (Auto) 17.4 % (20.0-45.0) L Monocytes (%) (Auto) 9.4 % (1.0-10.0) Eosinophils (%) (Auto) 2.4 % (0.0-3.0) Basophils (%) (Auto) 0.7 % (0.0-2.0) Sodium Level 139 MMOL/L (136-145) Potassium Level 4.1 MMOL/L (3.5-5.1) Chloride Level 104 MMOL/L (98-107) Carbon Dioxide Level 27 MMOL/L (21-32) Anion Gap 8 mmol/L (5-15) Blood Urea Nitrogen 17 mg/dL (7-18) Creatinine 0.7 MG/DL (0.55-1.30) Estimat Glomerular Filtration Rate mL/min (>60) Glucose Level 100 MG/DL (74-106) Calcium Level 9.7 MG/DL (8.5-10.1) Phosphorus Level 3.0 MG/DL (2.5-4.9) Magnesium Level 2.0 MG/DL (1.8-2.4) Microbiology Date/Time Source Procedure Growth Status 06/23/19 00:00 Nasal Nares MRSA Culture - Final NO METHICILLIN RESISTANT STAPH AUREUS... Complete 06/23/19 00:00 Urine,Clean Catch Urine Culture - Final Escherichia Coli Complete 06/23/19 00:00 Rectum VRE Culture - Final NO VANCOMYCIN RESISTANT ENTEROCOCCUS ... Complete Cooper Gastelum MD Jun 25, 2019 18:57
[2019-06-25 19:56] VITALS: BP 139/84
--- NOTE | 2019-06-25 20:10 | NUR ---
NURSE NOTES: Received patient awake,alert,verbal,ambulatory,comfortably resting in bed.
[2019-06-25] MEDS: cefTRIAXone 1 GM in D5W 55 ML IVPB SCH (21:44)
[2019-06-26] VITALS: BP 151/70
[2019-06-26] MEDS: LORazepam 0.5mg tab ORAL PRN ×2 (02:48→09:24)
[2019-06-26 04:00] VITALS: BP 146/69
[2019-06-26] MEDS: Levothyroxine 25mcg tab ORAL SCH (05:52)
[2019-06-26] MEDS: NovoLOG Insulin Flexpen SUBQ SCH ×2 (05:53→12:14)
[2019-06-26 06:25] LABS: BASOPHILS % (AUTO) 1.2 % (0.0-2.0); EOSINOPHILS % (AUTO) 2.6 % (0.0-3.0); HEMOGLOBIN 13.3 G/DL (12.0-16.0); LYMPHOCYTES % (AUTO) 17.6 % (20.0-45.0); MEAN CORPUSCULAR VOLUME 101 FL (80-99); MONOCYTES % (AUTO) 8.9 % (1.0-10.0); NEUTROPHILS % (AUTO) 69.8 % (45.0-75.0); PLATELET COUNT 191 K/UL (150-450); RED BLOOD COUNT 4.05 M/UL (4.20-5.40); WHITE BLOOD COUNT 7.6 K/UL (4.8-10.8)
[2019-06-26 06:45] LABS: ANION GAP 8 mmol/L (5-15); BLOOD UREA NITROGEN 18 mg/dL (7-18); CALCIUM 9.2 MG/DL (8.5-10.1); CARBON DIOXIDE 27 MMOL/L (21-32); CHLORIDE 104 MMOL/L (98-107); CREATININE 0.8 MG/DL (0.55-1.30); POTASSIUM 4.1 MMOL/L (3.5-5.1); SODIUM 139 MMOL/L (136-145)
--- NOTE | 2019-06-26 07:20 | NUR ---
NURSE NOTES: Patient received in stable condition, ambulating in the room. Breathing unlabored on room air, denies pain or SOB at this time. Socks provided. Call light placed within reach, will continue to monitor.
--- NOTE | 2019-06-26 07:25 | NUR ---
HAND-OFF: Report given to Jerilyn Dao RN.
[2019-06-26 08:00] VITALS: BP 131/70
[2019-06-26] MEDS ORDERED: Fleet's Mineral Oil Enema RECTAL SCH (09:00)
[2019-06-26] MEDS: Lactulose 20gm/30ml UDC ORAL SCH ×2 (09:00→12:11)
[2019-06-26] MEDS: Sertraline 50mg tab ORAL SCH (09:18)
[2019-06-26] MEDS: Tamsulosin 0.4mg cap ORAL SCH (09:18)
[2019-06-26] MEDS: Docusate 100mg cap ORAL SCH ×2 (09:18→12:11)
[2019-06-26] MEDS: Metoprolol 25mg tab ORAL SCH (09:19)
[2019-06-26] MEDS: Bismuth Subsalicylate 30ml ORAL PRN (09:26)
--- NOTE | 2019-06-26 10:30 | Progress Note ---
NOTE: POOR AUDIO PSYCHOTHERAPY CONSULTATION PROGRESS NOTE TREATING ATTENDING PHYSICIAN: Ru Barreto D.O. HISTORY OF PRESENT ILLNESS: The patient is an 89-year-old female patient. She was brought to the hospital for failure to thrive. The patient is nursing facility. The patient states she has been lethargic; however, altered in her mental status, and for these reasons, she was referred to psychotherapeutic services. This clinician assessed this patient. The patient has been confused, disorganized, argumentative, states that she has been feeling restless, anxious; however, she does not know why. The patient has been very agitated. She states she wants to return back home. She has episodes of anxiety. Denies suicidal or homicidal thoughts of ideation. The patient has been very irritable and agitated. She does have a history of schizophrenia, and at this time, she continues to require hospitalization for stabilization of her symptoms. I assessed this patient. PAST MEDICAL HISTORY: Includes COPD, osteoporosis, and osteoarthritis. ALLERGIES: The patient has no known drug allergies. SUBSTANCE ABUSE HISTORY: There is no history of alcohol use, illicit drug use, or smoking cigarettes. PAST PSYCHIATRIC HISTORY: The patient has history of paranoid schizophrenia. She has been treated with psychotropic medications in the past. SOCIAL HISTORY: The patient is an 89-year-old female patient from facility, financially sustained through [employer]. MENTAL STATUS EXAMINATION: The patient is alert and oriented to person and place. Mood is irritable. Affect is congruent. Thought process, disorganized. Thought content, . The patient has poor attention and concentration. Poor insight, judgement, and impulse control. THIS CLINICIAN ASSESSED THE PATIENT AND PROVIDED THE PATIENT WITH: 1. Reality orientation which is focused on improving the cognitive function of the patient, who is very confused and disorganized. Oriented to person, place, time, and situation. 2. Provided the patient with supportive psychotherapy, which would provide the patient positive communication skills. Today anxiety and agitation . PLAN: Plan is to maintain medication compliance, assist with positive coping skills, and stabilizing thoughts and behavior. Psychotherapy provided to this patient was 50 minutes. This clinician has reviewed the patient's chart and discussed the treatment with treatment team. Catarina Gordon PsyD. DR: VANDANA JOB#: [id number] CC:
--- NOTE | 2019-06-26 11:06 | GI Progress Note ---
Assessment/Plan Problems: (1) Abdominal pain ICD Codes: R10.9 - Unspecified abdominal pain SNOMED: 74702981 (2) Constipation ICD Codes: K59.00 - Constipation, unspecified SNOMED: 56280084 (3) Failure to thrive SNOMED: 88355986 Qualifiers: Qualified Codes: R62.7 - Adult failure to thrive (4) Chronic pain ICD Codes: G89.29 - Other chronic pain SNOMED: 32492309 Qualifiers: Qualified Codes: G89.29 - Other chronic pain Status: stable Status Narrative Discussed with Dr. Rangel. Assessment/Plan Advance diet as tolerated Pain management Begin bowel regimen of Colace plus MiraLAX Consider Senokot if has persistent constipation PPI Zofran as needed Follow labs Patient may benefit from a non formulary opioid induced constipation medication as an outpatient such as Movantik or Relistor. okay for DC per GI standpoint The patient was seen and examined at bedside and all new and available data was reviewed in the patients chart. I agree with the above findings, impression and plan. (Patient seen earlier today. Signature stamp does not reflect patient encounter time.). - Renato Rangel MD Subjective Subjective patient states she can eat, but dislikes food Objective Last 24 Hour Vital Signs Date Time Temp Pulse Resp B/P (MAP) Pulse Ox O2 Delivery O2 Flow Rate FiO2 06/26/19 09:19 61 131/70 06/26/19 09:18 61 131/70 06/26/19 09:00 Room Air 06/26/19 08:00 98.8 61 18 131/70 (90) 98 06/26/19 06:23 98.3 06/26/19 04:00 98.3 73 20 146/69 (94) 95 06/26/19 00:00 98.3 59 18 151/70 (97) 96 06/25/19 20:22 Room Air 06/25/19 19:56 98.4 68 20 139/84 (102) 94 06/25/19 17:36 61 126/53 06/25/19 16:00 98.6 61 17 126/53 (77) 93 06/25/19 12:00 98.1 67 18 139/70 (93) 95 06/25/19 11:59 Room Air Intake and Output 06/25/19 06/26/19 19:00 07:00 Intake Total 500 ml 455 ml Balance 500 ml 455 ml Intake Oral 500 ml 400 ml IV Total 55 ml # Voids 4 3 Laboratory Tests Test 06/26/19 06:00 White Blood Count 7.6 K/UL (4.8-10.8) Red Blood Count 4.05 M/UL (4.20-5.40) L Hemoglobin 13.3 G/DL (12.0-16.0) Hematocrit 41.0 % (37.0-47.0) Mean Corpuscular Volume 101 FL (80-99) H Mean Corpuscular Hemoglobin 32.9 PG (27.0-31.0) H Mean Corpuscular Hemoglobin Concent 32.4 G/DL (32.0-36.0) Red Cell Distribution Width 12.0 % (11.6-14.8) Platelet Count 191 K/UL (150-450) Mean Platelet Volume 6.1 FL (6.5-10.1) L Neutrophils (%) (Auto) 69.8 % (45.0-75.0) Lymphocytes (%) (Auto) 17.6 % (20.0-45.0) L Monocytes (%) (Auto) 8.9 % (1.0-10.0) Eosinophils (%) (Auto) 2.6 % (0.0-3.0) Basophils (%) (Auto) 1.2 % (0.0-2.0) Sodium Level 139 MMOL/L (136-145) Potassium Level 4.1 MMOL/L (3.5-5.1) Chloride Level 104 MMOL/L (98-107) Carbon Dioxide Level 27 MMOL/L (21-32) Anion Gap 8 mmol/L (5-15) Blood Urea Nitrogen 18 mg/dL (7-18) Creatinine 0.8 MG/DL (0.55-1.30) Estimat Glomerular Filtration Rate mL/min (>60) Glucose Level 138 MG/DL (74-106) H Calcium Level 9.2 MG/DL (8.5-10.1) Height (Feet): 5 Height (Inches): 3.00 Weight (Pounds): 170 General Appearance: WD/WN, no apparent distress, alert Cardiovascular: normal rate Respiratory/Chest: normal breath sounds, no respiratory distress Abdominal Exam: normal bowel sounds, non tender, soft Extremities: normal range of motion, non-tender Antonio Dickinson NP Jun 26, 2019 11:06
--- NOTE | 2019-06-26 11:21 | Hematology/Onc Progress Note ---
Assessment/Plan Assessment/Plan Assessment and recs: # Failure to thrive (FTT) - decreased bmi and low protein --> have ordered for cea level, elevated at 6.3 --> will obtain q3 day caloric counts --> may consider mirtazapine as appetite stimulant --> GI consult on a prn basis, as needed for endosc --> psych eval as well # Macrocytosis with a mcv currently 102-103 range --> tsh, folate, b12--> are wnl --> HOLD OFF bone marrow biopsy, can be related to meds as well # Abdominal pain -> kub does show constipation --> colace and miralax atc, senna as well # Therapeutic opioid-induced constipation (OIC) --> recommend she stop taking as large dose of opiates as she is taking # Schizophrenia --> psych eval prn # Chronic pain # Dvt ppx with scds The time of service does not reflect the actual time that the patient was actually seen Greatly appreciate consultation. Subjective Allergies: Coded Allergies: No Known Allergies (Unverified , 06/22/19) Subjective 06/24: no events, on ivf, no bleeding, no f/c 06/26: no acute events, afebrile, no sob, cea 6.1, dc planning Objective Objective Current Medications Medications (Trade) Dose Ordered Sig/Nay Route PRN Reason Start Time Stop Time Status Last Admin Dose Admin Acetaminophen (Tylenol) 650 mg Q4H PRN ORAL Mild Pain/Temp > 100.5 06/23/19 05:00 07/23/19 04:59 06/24/19 06:26 Amlodipine Besylate (Norvasc) 5 mg DAILY ORAL 06/24/19 09:00 07/24/19 08:59 06/26/19 09:18 Bisacodyl (Dulcolax) 5 mg DAILY PRN ORAL Constipation 06/23/19 05:00 07/23/19 04:59 06/25/19 17:50 Bisacodyl (Dulcolax) 10 mg DAILY PRN RECTAL Constipation 06/23/19 05:00 07/23/19 04:59 Bismuth Subsalicylate (Pepto-Bismol) 30 ml Q1H PRN ORAL upset stomach 06/23/19 06:30 07/23/19 04:59 06/26/19 09:26 Ceftriaxone Sodium 1 gm/ Dextrose 55 ml @ 110 mls/hr Q24H IVPB 06/23/19 22:00 06/30/19 21:59 06/25/19 21:44 Clonidine HCl (Catapres Tab) 0.1 mg QID PRN ORAL SBP ABOVE 160 06/23/19 21:25 07/23/19 21:24 06/25/19 04:06 Dextrose (Dextrose 50%) 25 ml Q30M PRN IV Hypoglycemia 06/23/19 06:15 07/23/19 06:14 Dextrose (Dextrose 50%) 50 ml Q30M PRN IV Hypoglycemia 06/23/19 06:15 07/23/19 06:14 Docusate Sodium (Colace) 100 mg THREE TIMES A DAY ORAL 06/24/19 13:00 07/24/19 12:59 06/26/19 09:18 Famotidine (Pepcid) 20 mg QHS ORAL 06/23/19 21:00 07/23/19 20:59 06/25/19 20:46 Gabapentin (Neurontin) 600 mg Q12HR ORAL 06/24/19 21:00 07/24/19 20:59 06/26/19 09:19 Insulin Aspart (NovoLOG) BEFORE MEALS AND HS SUBQ 06/23/19 06:30 07/23/19 06:29 06/26/19 05:53 Lactulose (Cephulac) 30 gm THREE TIMES A DAY ORAL 06/24/19 13:00 07/24/19 12:59 06/25/19 17:35 Levetiracetam (Keppra) 500 mg Q12HR ORAL 06/23/19 09:00 07/23/19 08:59 06/26/19 09:19 Levothyroxine Sodium (Synthroid) 25 mcg ACBREAKFAST ORAL 06/23/19 06:30 07/23/19 06:29 06/26/19 05:52 Lidocaine (Lidoderm 5% PATCH) 1 patch DAILY TDERMAL 06/23/19 09:00 07/23/19 08:59 06/26/19 09:19 Lorazepam (Ativan) 0.5 mg Q6H PRN ORAL For Anxiety 06/23/19 15:00 06/30/19 14:59 06/26/19 09:24 Magnesium Hydroxide (Mom) 30 ml DAILY PRN ORAL Constipation 06/23/19 05:00 07/23/19 04:59 Methadone HCl (Methadone HCl) 5 mg Q12HR ORAL 06/23/19 09:00 06/30/19 08:59 06/26/19 09:19 Metoprolol Tartrate (Lopressor) 25 mg BID ORAL 06/23/19 09:00 07/23/19 08:59 06/26/19 09:19 Mineral Oil (Fleet's Mineral Oil Enema) 133 ml EVERY OTHER DAY RECTAL 06/26/19 09:00 07/26/19 08:59 06/26/19 09:18 Morphine Sulfate (Morphine Sulfate) 2 mg Q4H PRN IVP Severe Pain (Pain Scale 7-10) 06/23/19 05:00 06/30/19 04:59 Nicotine (Nicoderm) 1 patch Q24H TDERMAL 06/24/19 16:00 07/24/19 15:59 06/25/19 16:13 Ondansetron HCl (Zofran) 4 mg Q8H PRN ORAL Nausea & Vomiting 06/23/19 05:00 07/23/19 04:59 Oxycodone/ Acetaminophen (Percocet 10/325) 1 tab Q4H PRN ORAL Breakthrough Pain 06/23/19 05:00 06/30/19 04:59 06/26/19 05:53 Oxycodone/ Acetaminophen (Percocet 10/325) 1 tab QID PRN ORAL Severe Pain (Pain Scale 7-10) 06/23/19 05:30 06/30/19 05:29 06/24/19 11:39 Phenazopyridine HCl (Pyridium) 100 mg THREE TIMES A DAY ORAL 06/23/19 13:00 07/23/19 12:59 06/26/19 09:19 Quetiapine Fumarate (SEROquel) 50 mg TWICE A DAY ORAL 06/23/19 09:00 07/23/19 08:59 06/26/19 09:19 Sertraline HCl (Zoloft) 50 mg DAILY ORAL 06/23/19 09:00 07/23/19 08:59 06/26/19 09:18 Sodium Phosphate (Fleet's Sodium Phosl Enema) 133 ml DAILY PRN RECTAL Constipation 06/23/19 05:00 07/23/19 04:59 Tamsulosin HCl (Flomax) 0.4 mg BID ORAL 06/23/19 09:00 07/23/19 08:59 06/26/19 09:18 Last 24 Hour Vital Signs Date Time Temp Pulse Resp B/P (MAP) Pulse Ox O2 Delivery O2 Flow Rate FiO2 06/26/19 09:19 61 131/70 06/26/19 09:18 61 131/70 06/26/19 09:00 Room Air 06/26/19 08:00 98.8 61 18 131/70 (90) 98 06/26/19 06:23 98.3 06/26/19 04:00 98.3 73 20 146/69 (94) 95 06/26/19 00:00 98.3 59 18 151/70 (97) 96 06/25/19 20:22 Room Air 06/25/19 19:56 98.4 68 20 139/84 (102) 94 06/25/19 17:36 61 126/53 06/25/19 16:00 98.6 61 17 126/53 (77) 93 06/25/19 12:00 98.1 67 18 139/70 (93) 95 06/25/19 11:59 Room Air 06/25/19 09:00 Room Air 06/25/19 08:36 66 146/65 06/25/19 08:35 66 146/65 06/25/19 08:00 97.3 66 21 146/65 (92) 95 06/25/19 04:06 175/76 06/25/19 04:00 97.4 64 18 175/76 (109) 98 06/25/19 00:02 98.7 68 18 109/66 (80) 95 06/24/19 21:00 Room Air 06/24/19 20:00 97.9 55 16 158/69 (98) 95 06/24/19 17:58 63 123/44 (70) 06/24/19 17:56 63 123/44 06/24/19 16:00 98.1 54 17 132/80 (97) 94 06/24/19 12:00 97.9 55 18 139/56 (83) 97 Intake and Output 06/25/19 06/26/19 19:00 07:00 Intake Total 500 ml 455 ml Balance 500 ml 455 ml Intake Oral 500 ml 400 ml IV Total 55 ml # Voids 4 3 Labs Test 06/24/19 05:20 06/25/19 05:15 06/26/19 06:00 White Blood Count 8.1 K/UL (4.8-10.8) 7.4 K/UL (4.8-10.8) 7.6 K/UL (4.8-10.8) Red Blood Count 3.99 M/UL (4.20-5.40) 4.14 M/UL (4.20-5.40) 4.05 M/UL (4.20-5.40) Hemoglobin 13.1 G/DL (12.0-16.0) 13.6 G/DL (12.0-16.0) 13.3 G/DL (12.0-16.0) Hematocrit 40.7 % (37.0-47.0) 41.9 % (37.0-47.0) 41.0 % (37.0-47.0) Mean Corpuscular Volume 102 FL (80-99) 101 FL (80-99) 101 FL (80-99) Mean Corpuscular Hemoglobin 32.9 PG (27.0-31.0) 32.9 PG (27.0-31.0) 32.9 PG (27.0-31.0) Mean Corpuscular Hemoglobin Concent 32.2 G/DL (32.0-36.0) 32.5 G/DL (32.0-36.0) 32.4 G/DL (32.0-36.0) Red Cell Distribution Width 11.9 % (11.6-14.8) 11.8 % (11.6-14.8) 12.0 % (11.6-14.8) Platelet Count 178 K/UL (150-450) 202 K/UL (150-450) 191 K/UL (150-450) Mean Platelet Volume 5.7 FL (6.5-10.1) 6.0 FL (6.5-10.1) 6.1 FL (6.5-10.1) Neutrophils (%) (Auto) 68.7 % (45.0-75.0) 70.2 % (45.0-75.0) 69.8 % (45.0-75.0) Lymphocytes (%) (Auto) 19.6 % (20.0-45.0) 17.4 % (20.0-45.0) 17.6 % (20.0-45.0) Monocytes (%) (Auto) 8.8 % (1.0-10.0) 9.4 % (1.0-10.0) 8.9 % (1.0-10.0) Eosinophils (%) (Auto) 2.3 % (0.0-3.0) 2.4 % (0.0-3.0) 2.6 % (0.0-3.0) Basophils (%) (Auto) 0.6 % (0.0-2.0) 0.7 % (0.0-2.0) 1.2 % (0.0-2.0) Erythrocyte Sedimentation Rate 54 MM/HR (0-30) Sodium Level 138 MMOL/L (136-145) 139 MMOL/L (136-145) 139 MMOL/L (136-145) Potassium Level 4.6 MMOL/L (3.5-5.1) 4.1 MMOL/L (3.5-5.1) 4.1 MMOL/L (3.5-5.1) Chloride Level 103 MMOL/L (98-107) 104 MMOL/L (98-107) 104 MMOL/L (98-107) Carbon Dioxide Level 31 MMOL/L (21-32) 27 MMOL/L (21-32) 27 MMOL/L (21-32) Anion Gap 4 mmol/L (5-15) 8 mmol/L (5-15) 8 mmol/L (5-15) Blood Urea Nitrogen 22 mg/dL (7-18) 17 mg/dL (7-18) 18 mg/dL (7-18) Creatinine 0.9 MG/DL (0.55-1.30) 0.7 MG/DL (0.55-1.30) 0.8 MG/DL (0.55-1.30) Estimat Glomerular Filtration Rate mL/min (>60) mL/min (>60) mL/min (>60) Glucose Level 111 MG/DL (74-106) 100 MG/DL (74-106) 138 MG/DL (74-106) Calcium Level 9.0 MG/DL (8.5-10.1) 9.7 MG/DL (8.5-10.1) 9.2 MG/DL (8.5-10.1) Phosphorus Level 3.3 MG/DL (2.5-4.9) 3.0 MG/DL (2.5-4.9) Magnesium Level 2.0 MG/DL (1.8-2.4) 2.0 MG/DL (1.8-2.4) Total Bilirubin 0.2 MG/DL (0.2-1.0) Aspartate Amino Transf (AST/SGOT) 11 U/L (15-37) Alanine Aminotransferase (ALT/SGPT) 11 U/L (12-78) Alkaline Phosphatase 78 U/L (46-116) C-Reactive Protein, Quantitative 2.9 mg/dL (0.00-0.90) Total Protein 7.1 G/DL (6.4-8.2) Albumin 3.1 G/DL (3.4-5.0) Globulin 4.0 g/dL Albumin/Globulin Ratio 0.8 (1.0-2.7) Height (Feet): 5 Height (Inches): 3.00 Weight (Pounds): 170 Objective PE: Vitals: reviewed, stable General Appearance: NAD HEENT: normocephalic, atraumatic Neck: non-tender, normal alignment Respiratory/Chest: normal breath sounds bilaterally Cardiovascular/Chest: normal peripheral pulses, normal rate Abdomen: normal bowel sounds, soft, nontender Extremities: normal range of motion Jose Medeiros MD Jun 26, 2019 11:21
--- NOTE | 2019-06-26 11:27 | NUR ---
DISCHARGE PLANNING DISCHARGE ORDER NOTED Patient has been accepted to; [facility], [place] [address] [place] [address] Bed: 5 Residential for Nurse to Nurse report [facility] ETA for transportation: 13:00
[2019-06-26 12:00] VITALS: BP 127/72
--- NOTE | 2019-06-26 12:08 | NUR ---
NURSE NOTES: asked dr cantu if can reorder new dc order since it was held per md , he will assess pt first
[2019-06-26] MEDS: Bisacodyl EC 5mg tab ORAL PRN (13:29)
--- NOTE | 2019-06-26 14:26 | NUR ---
RD ASSESSMENT & RECOMMENDATIONS SEE CARE ACTIVITY FOR COMPLETE ASSESSMENT DAILY ESTIMATED NEEDS: Needs based on Cardiac, DM 58.5kg adj 25-30 kcals/kg 7559-9633 total kcals 1-1.5 g protein/kg 59-88 g total protein 20-25 mL/kg 9262-4868 total fluid mLs NUTRITION DIAGNOSIS: Suspected chewing or swallowing difficulty r/t dysphagia as evidenced by pt on [facility] soft chopped texture diet (INACTIVE) CURRENT DIET: CCHO MED, ALEXIA PO DIET RECOMMENDATIONS: Cardiac/ CCHO LOW diet (texture per INSULATION BOARD BACK TENDER) ADDITIONAL RECOMMENDATIONS: 1) INSULATION [employer]ARD BACK TENDER eval for appropriate texture 2) W<75% intake, rec Glucerna 1 tetra cristal TID w/ meals (250 kcal per tetra cristal) 3) Consider Kcal count for eval -> intake is not consistent 4) A1C for eval 5) Calibrated bed scale wt --- 48 HOUR CALORIE COUNT: 5/6 menu tickets available for eval B1: 25% of meal, unclear L1: Tuna sandwich only, 360 kcal D1: Tuna sandwich x2, 720 kcal B2: not available L2: 25% chicken, est 50-75 kcal D2: Tuna sandwich only, 360 kcal - Pt w/ overall low kcal intake, partial to tuna sandwiches. Total intake per day is incomplete. Pt does not appear to be meeting est kcal need of minimum 1463 kcal/day.
--- NOTE | 2019-06-26 14:38 | NUR ---
NURSE NOTES: spoke w dr cantu re if ok for pt to dc to snf (during his rounds), per he will check labs first. Addendum: 06/26/19 at 1441 by CANDE FUENTES RN ani han above to [place] case management social worker
--- NOTE | 2019-06-26 15:05 | General Progress Note ---
Assessment/Plan Problem List: (1) Diabetes ICD Codes: E11.9 - Type 2 diabetes mellitus without complications SNOMED: 48855791 (2) EDUARDO (acute kidney injury) ICD Codes: N17.9 - Acute kidney failure, unspecified SNOMED: 5789394, 93688426 (3) HTN (hypertension) ICD Codes: I10 - Essential (primary) hypertension SNOMED: 81441619 (4) Bradyarrhythmia on pre-operative cardiovascular examination ICD Codes: Z01.810 - Encounter for preprocedural cardiovascular examination; I49.8 - Other specified cardiac arrhythmias SNOMED: 276957709 (5) COPD (chronic obstructive pulmonary disease) ICD Codes: J44.9 - Chronic obstructive pulmonary disease, unspecified SNOMED: 61018134 Qualifiers: Qualified Codes: J44.9 - Chronic obstructive pulmonary disease, unspecified (6) Schizophrenia ICD Codes: F20.9 - Schizophrenia, unspecified SNOMED: 68236645 Qualifiers: Qualified Codes: F20.9 - Schizophrenia, unspecified (7) Chronic pain ICD Codes: G89.29 - Other chronic pain SNOMED: 39347519 Qualifiers: Qualified Codes: G89.29 - Other chronic pain (8) Failure to thrive SNOMED: 83789330 Qualifiers: Qualified Codes: R62.7 - Adult failure to thrive Status: stable, progressing Assessment/Plan: pt diet cardio eval dc if clear Subjective Constitutional: Reports: weakness Allergies: Coded Allergies: No Known Allergies (Unverified , 06/22/19) All Systems: reviewed and negative except above Subjective sl anxious in bed Objective Last 24 Hour Vital Signs Date Time Temp Pulse Resp B/P (MAP) Pulse Ox O2 Delivery O2 Flow Rate FiO2 06/26/19 12:00 98.1 63 18 127/72 (90) 97 06/26/19 09:19 61 131/70 06/26/19 09:18 61 131/70 06/26/19 09:00 Room Air 06/26/19 08:00 98.8 61 18 131/70 (90) 98 06/26/19 06:23 98.3 06/26/19 04:00 98.3 73 20 146/69 (94) 95 06/26/19 00:00 98.3 59 18 151/70 (97) 96 06/25/19 20:22 Room Air 06/25/19 19:56 98.4 68 20 139/84 (102) 94 06/25/19 17:36 61 126/53 06/25/19 16:00 98.6 61 17 126/53 (77) 93 Intake and Output 06/25/19 06/26/19 19:00 07:00 Intake Total 500 ml 455 ml Balance 500 ml 455 ml Intake Oral 500 ml 400 ml IV Total 55 ml # Voids 4 3 Laboratory Tests 06/26/19 06:00: White Blood Count 7.6, Red Blood Count 4.05L, Hemoglobin 13.3, Hematocrit 41.0, Mean Corpuscular Volume 101H, Mean Corpuscular Hemoglobin 32.9H, Mean Corpuscular Hemoglobin Concent 32.4, Red Cell Distribution Width 12.0, Platelet Count 191, Mean Platelet Volume 6.1L, Neutrophils (%) (Auto) 69.8, Lymphocytes ( %) (Auto) 17.6L, Monocytes (%) (Auto) 8.9, Eosinophils (%) (Auto) 2.6, Basophils (%) (Auto) 1.2, Sodium Level 139, Potassium Level 4.1, Chloride Level 104, Carbon Dioxide Level 27, Anion Gap 8, Blood Urea Nitrogen 18, Creatinine 0.8, Estimat Glomerular Filtration Rate , Glucose Level 138H, Calcium Level 9.2 Height (Feet): 5 Height (Inches): 3.00 Weight (Pounds): 170 General Appearance: lethargic EENT: normal ENT inspection Neck: normal alignment Cardiovascular: normal peripheral pulses, normal rate, regular rhythm Respiratory/Chest: chest wall non-tender, lungs clear, normal breath sounds Abdomen: normal bowel sounds, non tender, soft Extremities: normal inspection Edema: no edema noted Arm (L), no edema noted Arm (R), no edema noted Leg (L), no edema noted Leg (R), no edema noted Pedal (L), no edema noted Pedal (R), no edema noted Generalized Neurologic: responsive, motor weakness Skin: normal pigmentation, warm/dry Ru Barreto DO Jun 26, 2019 15:04
--- NOTE | 2019-06-26 15:43 | NUR ---
NURSE NOTES: Patient discharged to [facility] transported by ambulance personnel. Report given to Nuvia CALVILLO. Belongings reviewed and confirmed with the patient by the bedside. IV safely removed, covered with gauze and tape. Patient left in stable condition, ambulated with steady gait to the [facility].
--- NOTE | 2019-06-26 15:43 | Pulmonology Progress Note ---
Assessment/Plan Problems: (1) UTI (urinary tract infection) (2) Dysuria (3) COPD (chronic obstructive pulmonary disease) (4) Failure to thrive (0-17) (5) Schizophrenia (6) Chronic pain (7) Failure to thrive (8) Hypothyroidism Assessment/Plan doing better respiratory treatment pt/ot dvt prophylaxis wants to go home Subjective ROS Limited/Unobtainable: No Constitutional: Reports: no symptoms HEENT: Repors: no symptoms Allergies: Coded Allergies: No Known Allergies (Unverified , 06/22/19) Objective Last 24 Hour Vital Signs Date Time Temp Pulse Resp B/P (MAP) Pulse Ox O2 Delivery O2 Flow Rate FiO2 06/26/19 12:00 98.1 63 18 127/72 (90) 97 06/26/19 09:19 61 131/70 06/26/19 09:18 61 131/70 06/26/19 09:00 Room Air 06/26/19 08:00 98.8 61 18 131/70 (90) 98 06/26/19 06:23 98.3 06/26/19 04:00 98.3 73 20 146/69 (94) 95 06/26/19 00:00 98.3 59 18 151/70 (97) 96 06/25/19 20:22 Room Air 06/25/19 19:56 98.4 68 20 139/84 (102) 94 06/25/19 17:36 61 126/53 06/25/19 16:00 98.6 61 17 126/53 (77) 93 Intake and Output 06/25/19 06/26/19 19:00 07:00 Intake Total 500 ml 455 ml Balance 500 ml 455 ml Intake Oral 500 ml 400 ml IV Total 55 ml # Voids 4 3 General Appearance: WD/WN HEENT: normocephalic, atraumatic Respiratory/Chest: chest wall non-tender, lungs clear Breasts: no masses Abdomen: normal bowel sounds, soft, non tender Genitourinary: normal external genitalia Extremities: no cyanosis Neurologic/Psychiatric: roofer applicator II-XII grossly normal Laboratory Tests 06/26/19 06:00: White Blood Count 7.6, Red Blood Count 4.05L, Hemoglobin 13.3, Hematocrit 41.0, Mean Corpuscular Volume 101H, Mean Corpuscular Hemoglobin 32.9H, Mean Corpuscular Hemoglobin Concent 32.4, Red Cell Distribution Width 12.0, Platelet Count 191, Mean Platelet Volume 6.1L, Neutrophils (%) (Auto) 69.8, Lymphocytes ( %) (Auto) 17.6L, Monocytes (%) (Auto) 8.9, Eosinophils (%) (Auto) 2.6, Basophils (%) (Auto) 1.2, Sodium Level 139, Potassium Level 4.1, Chloride Level 104, Carbon Dioxide Level 27, Anion Gap 8, Blood Urea Nitrogen 18, Creatinine 0.8, Estimat Glomerular Filtration Rate , Glucose Level 138H, Calcium Level 9.2 Current Medications Medications (Trade) Dose Ordered Sig/Nay Route PRN Reason Start Time Stop Time Status Last Admin Dose Admin Acetaminophen (Tylenol) 650 mg Q4H PRN ORAL Mild Pain/Temp > 100.5 06/23/19 05:00 07/23/19 04:59 06/24/19 06:26 Amlodipine Besylate (Norvasc) 5 mg DAILY ORAL 06/24/19 09:00 07/24/19 08:59 06/26/19 09:18 Bisacodyl (Dulcolax) 5 mg DAILY PRN ORAL Constipation 06/23/19 05:00 07/23/19 04:59 06/26/19 13:29 Bisacodyl (Dulcolax) 10 mg DAILY PRN RECTAL Constipation 06/23/19 05:00 07/23/19 04:59 Bismuth Subsalicylate (Pepto-Bismol) 30 ml Q1H PRN ORAL upset stomach 06/23/19 06:30 07/23/19 04:59 06/26/19 09:26 Ceftriaxone Sodium 1 gm/ Dextrose 55 ml @ 110 mls/hr Q24H IVPB 06/23/19 22:00 06/30/19 21:59 06/25/19 21:44 Clonidine HCl (Catapres Tab) 0.1 mg QID PRN ORAL SBP ABOVE 160 06/23/19 21:25 07/23/19 21:24 06/25/19 04:06 Dextrose (Dextrose 50%) 25 ml Q30M PRN IV Hypoglycemia 06/23/19 06:15 07/23/19 06:14 Dextrose (Dextrose 50%) 50 ml Q30M PRN IV Hypoglycemia 06/23/19 06:15 07/23/19 06:14 Docusate Sodium (Colace) 100 mg THREE TIMES A DAY ORAL 06/24/19 13:00 07/24/19 12:59 06/26/19 12:11 Famotidine (Pepcid) 20 mg QHS ORAL 06/23/19 21:00 07/23/19 20:59 06/25/19 20:46 Gabapentin (Neurontin) 600 mg Q12HR ORAL 06/24/19 21:00 07/24/19 20:59 06/26/19 09:19 Insulin Aspart (NovoLOG) BEFORE MEALS AND HS SUBQ 06/23/19 06:30 07/23/19 06:29 06/26/19 12:14 Lactulose (Cephulac) 30 gm THREE TIMES A DAY ORAL 06/24/19 13:00 07/24/19 12:59 06/26/19 12:11 Levetiracetam (Keppra) 500 mg Q12HR ORAL 06/23/19 09:00 07/23/19 08:59 06/26/19 09:19 Levothyroxine Sodium (Synthroid) 25 mcg ACBREAKFAST ORAL 06/23/19 06:30 07/23/19 06:29 06/26/19 05:52 Lidocaine (Lidoderm 5% PATCH) 1 patch DAILY TDERMAL 06/23/19 09:00 07/23/19 08:59 06/26/19 09:19 Lorazepam (Ativan) 0.5 mg Q6H PRN ORAL For Anxiety 06/23/19 15:00 06/30/19 14:59 06/26/19 09:24 Magnesium Hydroxide (Mom) 30 ml DAILY PRN ORAL Constipation 06/23/19 05:00 07/23/19 04:59 Methadone HCl (Methadone HCl) 5 mg Q12HR ORAL 06/23/19 09:00 06/30/19 08:59 06/26/19 09:19 Metoprolol Tartrate (Lopressor) 25 mg BID ORAL 06/23/19 09:00 07/23/19 08:59 06/26/19 09:19 Mineral Oil (Fleet's Mineral Oil Enema) 133 ml EVERY OTHER DAY RECTAL 06/26/19 09:00 07/26/19 08:59 06/26/19 09:18 Morphine Sulfate (Morphine Sulfate) 2 mg Q4H PRN IVP Severe Pain (Pain Scale 7-10) 06/23/19 05:00 06/30/19 04:59 Nicotine (Nicoderm) 1 patch Q24H TDERMAL 06/24/19 16:00 07/24/19 15:59 06/25/19 16:13 Ondansetron HCl (Zofran) 4 mg Q8H PRN ORAL Nausea & Vomiting 06/23/19 05:00 07/23/19 04:59 Oxycodone/ Acetaminophen (Percocet 10/325) 1 tab Q4H PRN ORAL Breakthrough Pain 06/23/19 05:00 06/30/19 04:59 06/26/19 14:52 Oxycodone/ Acetaminophen (Percocet 10/325) 1 tab QID PRN ORAL Severe Pain (Pain Scale 7-10) 06/23/19 05:30 06/30/19 05:29 06/24/19 11:39 Phenazopyridine HCl (Pyridium) 100 mg THREE TIMES A DAY ORAL 06/23/19 13:00 07/23/19 12:59 06/26/19 12:11 Quetiapine Fumarate (SEROquel) 50 mg TWICE A DAY ORAL 06/23/19 09:00 07/23/19 08:59 06/26/19 09:19 Sertraline HCl (Zoloft) 50 mg DAILY ORAL 06/23/19 09:00 07/23/19 08:59 06/26/19 09:18 Sodium Phosphate (Fleet's Sodium Phosl Enema) 133 ml DAILY PRN RECTAL Constipation 06/23/19 05:00 07/23/19 04:59 Tamsulosin HCl (Flomax) 0.4 mg BID ORAL 06/23/19 09:00 07/23/19 08:59 06/26/19 09:18 Denys Hendrix MD Jun 26, 2019 15:43
--- NOTE | 2019-06-26 16:15 | Progress Note ---
DATE: 06/26/2019 SUBJECTIVE: This is an 89-year-old patient with failure to thrive. The patient is very confused, disorganized with mood labile. She has got no logical plan for her own self-care. She does have some feelings of helplessness, hopelessness, low energy, poor appetite, and loss of interest in activity. I encouraged her to interact appropriately with staff and other patients, but this patient still has some depression, confusion, as well as failure to thrive. That is why, she has increased mood lability and altered mental status worsened by stress of her medical illness. MENTAL STATUS EXAMINATION: This is an 89-year-old female. Appearance is disheveled. Attitude, irritable and agitated. Affect, guarded and restricted. Intellect poor. Mood, depressed and anxious. Motor activity, psychomotor agitation. Attention span is poor. Orientation x3. Speech is pressured. Thought process, disorganized and illogical. Insight and judgment is poor. DIAGNOSIS: Paranoid schizophrenia with acute exacerbation. PLAN: Treat her with Seroquel 50 mg twice a day, Zoloft 50 mg daily, Ativan 0.5 mg IV, and Neurontin 600 mg q.12 h. p.r.n. anxiety and agitation. Provided her with 20 minutes of reality-based supportive psychotherapy. A 20 minutes of cognitive behavioral therapy was provided to help her identify automatic negative thoughts and help her convert negative thoughts to more positive thoughts to reduce depression, anxiety, suicidality. Monique Morrell M.D. : HYUN JOB#: [id number] CC:
--- NOTE | 2019-06-26 17:11 | Cardiology Progress Note ---
Assessment/Plan Assessment/Plan 1. Presyncope, continue hydration, 2D echo showed normal LV systolic function with LVEF at 70%. 2. Hypertension, well controlled, continue amlodipine and metoprolol, also on alpha-blockers. 3. Chronic obstructive pulmonary disease. 4. History of psychiatric disorder. Subjective Subjective No cardiac events reported. Objective Last 24 Hour Vital Signs Date Time Temp Pulse Resp B/P (MAP) Pulse Ox O2 Delivery O2 Flow Rate FiO2 06/26/19 12:00 98.1 63 18 127/72 (90) 97 06/26/19 09:19 61 131/70 06/26/19 09:18 61 131/70 06/26/19 09:00 Room Air 06/26/19 08:00 98.8 61 18 131/70 (90) 98 06/26/19 06:23 98.3 06/26/19 04:00 98.3 73 20 146/69 (94) 95 06/26/19 00:00 98.3 59 18 151/70 (97) 96 06/25/19 20:22 Room Air 06/25/19 19:56 98.4 68 20 139/84 (102) 94 06/25/19 17:36 61 126/53 Intake and Output 06/25/19 06/26/19 19:00 07:00 Intake Total 500 ml 455 ml Balance 500 ml 455 ml Intake Oral 500 ml 400 ml IV Total 55 ml # Voids 4 3 2D Echo: LVEF 70%, Grade I LVDD, RVSP 46 mmHg, Mild MR, Mild CT. Laboratory Tests Test 06/26/19 06:00 White Blood Count 7.6 K/UL (4.8-10.8) Red Blood Count 4.05 M/UL (4.20-5.40) L Hemoglobin 13.3 G/DL (12.0-16.0) Hematocrit 41.0 % (37.0-47.0) Mean Corpuscular Volume 101 FL (80-99) H Mean Corpuscular Hemoglobin 32.9 PG (27.0-31.0) H Mean Corpuscular Hemoglobin Concent 32.4 G/DL (32.0-36.0) Red Cell Distribution Width 12.0 % (11.6-14.8) Platelet Count 191 K/UL (150-450) Mean Platelet Volume 6.1 FL (6.5-10.1) L Neutrophils (%) (Auto) 69.8 % (45.0-75.0) Lymphocytes (%) (Auto) 17.6 % (20.0-45.0) L Monocytes (%) (Auto) 8.9 % (1.0-10.0) Eosinophils (%) (Auto) 2.6 % (0.0-3.0) Basophils (%) (Auto) 1.2 % (0.0-2.0) Sodium Level 139 MMOL/L (136-145) Potassium Level 4.1 MMOL/L (3.5-5.1) Chloride Level 104 MMOL/L (98-107) Carbon Dioxide Level 27 MMOL/L (21-32) Anion Gap 8 mmol/L (5-15) Blood Urea Nitrogen 18 mg/dL (7-18) Creatinine 0.8 MG/DL (0.55-1.30) Estimat Glomerular Filtration Rate mL/min (>60) Glucose Level 138 MG/DL (74-106) H Calcium Level 9.2 MG/DL (8.5-10.1) Objective HEENT: Atraumatic and normocephalic. Anicteric. Pupils are equal, round and reactive to light and accommodation. Extraocular muscles intact. NECK: JVP less than 5 cm. No carotid bruits. Carotid upstrokes 2+ bilaterally. CARDIOVASCULAR: Normal S1, S2. Regular rate and rhythm. No murmurs, gallops, or rubs. LUNGS: Diminished breath sounds. ABDOMEN: Soft, nontender, and nondistended. Obese. Positive bowel sounds. EXTREMITIES: No evidence of edema, clubbing, or cyanosis. Cooper Gastelum MD Jun 26, 2019 17:11
--- NOTE | 2019-06-28 05:45 | Progress Note ---
DATE: 06/26/2019 NOTE: POOR AUDIO. PSYCHOTHERAPY CONSULTATION PROGRESS NOTE TREATING ATTENDING: Ru Barreto D.O. HISTORY OF PRESENT ILLNESS: The patient is an 89-year-old female patient. The patient is anxious and restless, she states that she has been feeling depressed. The patient anxiety level is high. The patient is asking for medication to help and reduce her levels of anxiety. Nursing staff informed for today with the patient utilizing relaxation and breathing exercises to reduce her anxiety. I provided her with supportive psychotherapy the patient's emotions and distress. Encourage the patient to process thought content and cognitive behavioral therapy which is technique consistent with a mobility. We discussed positive chart and positive coping skills including the patient with relaxation exercises and breathing exercises mood lability. Encouraging the patient to participate in treatment with medication regimen. The patient is 89 years old and has maintained medication compliance positive coping skills. behaviors. Psychotherapy the patient 20 minutes. DIAGNOSIS: Paranoid schizophrenia. This clinician has reviewed the patient's chart. Discussed the treatment with treatment team. therapy 20 minutes. Catarina Gordon PsyD. DR: LUKE JOB#: [id number] CC:
--- NOTE | 2019-06-28 14:18 | Discharge Summary ---
Discharge Summary Discharge Summary _ DATE OF ADMISSION: 06/22/2019 DATE OF DISCHARGE: 06/26/2019 DISCHARGED BY: Dr. Dr. Ru Barreto CONSULTANTS: Dr. Cooper Gordon, [facility] COURSE: Patient is an 89-year-old female, from [facility], presented due to intermittent symptoms of dizziness. She also has pain in the neck that bothers her. Pain is 10/10. She complained of left lower quadrant abdominal pain with constipation. She also has dysuria. She is denying chest pain and shortness of breath. She feels weak and dizzy throughout the day. She smokes cigarettes and has chronic cough. She has history of schizophrenia, depression , COPD and irritable bowel syndrome. Upon evaluation at the ED, vital signs were stable. Blood work did not show any leukocytosis. Hemoglobin and hematocrit were stable. Electrolytes were normal. BUN was elevated to 29. Troponin was negative. Urinalyses showed +1 leukocyte esterase, positive nitrite, 5-10 urine WBC. EKG showed sinus rhythm with right bundle branch block. Chest x-ray did not show any acute disease. KUB showed right upper quadrant clips with increased stool load. She was then admitted to medical floor for evaluation of failure to thrive, dehydration, UTI , bronchospasm, COPD. GI was consulted. She was given bowel regimen consisting of Colace and MiraLAX. She was given Pepcid. She was continued on ceftriaxone. She was given IV edema. She was continued on Flomax twice daily. Blood glucose was monitored. She was placed on insulin sliding scale. Perfume And Toilet Water Maker consulted. She was given respiratory treatment, titrate FiO2 to saturation 92%. Oncologist was consulted for evaluation of failure to thrive. CEA level was elevated to 6.3. Patient has macrocytosis with MCV 102. TSH, folate and B12 were normal. Ladle Mechanic was consulted for management of presyncope. Patient had lightheadedness and dizziness. She was given IV hydration. Patient had prerenal azotemia and hypovolemia. She also had episodes of hypertension. She was given metoprolol and amlodipine. Psychiatric evaluation was done. Patient was diagnosed with paranoid schizophrenia with acute exacerbation. She was given Zoloft, Seroquel, Ativan, and Neurontin. She was given cognitive behavioral therapy. Patient has opioid induced constipation. She was taking methadone. She was given lactulose and fleets enema added to the bowel regimen. Urine culture showed growth of E. coli sensitive to ceftriaxone. Echocardiogram showed EF 70 to 75%. RVSP 46 mmHg, consistent with moderate pulmonary hypertension. Patient was breathing better. There was no leukocytosis. She was cleared for discharge. FINAL DIAGNOSES: Presyncope, due to hypovolemia E. coli UTI Hypertension COPD Paranoid schizophrenia with acute exacerbation Failure to thrive Chronic pain Hypothyroidism Opioid-induced constipation Macrocytosis Generalized DISPOSITION: DC to SNF. DISCHARGE MEDICATIONS: Refer to Discharge Medication List. I have been assigned to complete a discharge summary on this account, I was not involved with the patient's management.--ZAMZAM Hernandez Jacqueline Robles NP Jun 28, 2019 14:18
== END 2019-06-26 15:43 | DRG 683 ==
LOC: EDBD 20:54 → EMR 21:40 → 4E 22:12 → EDBEDREQ 22:29 → 4E 06-25 10:09
PROC: 30233N1 Transfusion of Nonautologous Red Blood Cells into Peripheral Vein, Percutaneous Approach (ICD-10-PCS; principal; 2019-06-24)
DX: N17.9 Acute kidney failure, unspecified (principal); N39.0 Urinary tract infection, site not specified; F20.0 Paranoid schizophrenia; F33.0 Major depressive disorder, recurrent, mild; E86.0 Dehydration; F17.200 Nicotine dependence, unspecified, uncomplicated; J44.9 Chronic obstructive pulmonary disease, unspecified; E11.9 Type 2 diabetes mellitus without complications; I45.10 Unspecified right bundle-branch block; B96.20 Unspecified Escherichia coli [E. coli] as the cause of diseases classified elsewhere; I10 Essential (primary) hypertension; E86.1 Hypovolemia; R55 Syncope and collapse; G89.29 Other chronic pain; E03.9 Hypothyroidism, unspecified; R00.1 Bradycardia, unspecified; M54.2 Cervicalgia; K59.03 Drug induced constipation; T40.2X5A Adverse effect of other opioids, initial encounter; D75.89 Other specified diseases of blood and blood-forming organs; M81.0 Age-related osteoporosis without current pathological fracture; M19.90 Unspecified osteoarthritis, unspecified site; R10.9 Unspecified abdominal pain
CPT/HCPCS: 36415; 71045; 74018; 80048; 80053; 80299; 81003; 82378; 82550; 82607; 82746; 82962; 83690; 83735; 84100; 84443; 84484; 85025; 85610; 85651; 85730; 86140; 87081; 87086; 87181; 93005; 93306; 94640; 94664; 96361; 96365; 96375; 96376; 99285; J2405; J7620

== ENCOUNTER 2019-07-16 16:09 | Emergency (ER) | payer MEDICARE, MEDICAID ==
[~2019-07-16] VITALS: Ht 162.6 cm; Wt 72.6 kg
[~2019-07-16 16:09] MED LIST: ACETAMINOPHEN325 M1 ORAL; BISACODYL5 MG ORAL; COLACE100 MG ORAL; DOCUSATE SODIU250 MG ORAL; DULCOLAX10 MG RC; FLEET ENEMA133 ML RECTAL; FLOMAX0.4 MG ORAL; GABAPENTIN600 MG ORAL; HUMULIN N100 UNIT/4 SQ; HUMULIN R100 UNIT/1 SUBQ; IBUPROFEN600 MG ORAL; KEPPRA XR500 MG ORAL; LACTULOSE10 GM/153 PO; LEVOTHYROXINE125 MCG ORAL; LIDODERM700 M1 TOPIC; METHADONE HCL5 MG ORAL; METOPROLOL TART25 MG ORAL; MILK OF MA400 MG/51 ORAL; NICODERM CQ1 EAC1 TD; PEPCID AC20 M2 PO; PEPTO-BISM525 MG/15 PO; PERCOCET 10-321 EAC1 ORAL; PHENAZOPYRIDIN100 MG ORAL; SEROQUEL25 MG ORAL; SERTRALINE HCL50 MG ORAL; SYNTHROID25 MCG ORAL; ZOFRAN4 M3 ORAL
[2019-07-16] MEDS ORDERED: Omnipaque-300 100ml vial INJ PRN (16:15)
[2019-07-16] MEDS ORDERED: cefTRIAXone 1 GM in NS 55 ML IVPB ONE (16:15)
[2019-07-16] MEDS ORDERED: METHADONE H5 MG/5 M1 PO (16:20)
[2019-07-16] MEDS ORDERED: TRAZODONE HCL150 MG ORAL (16:20)
[2019-07-16] MEDS ORDERED: LISINOPRIL20 MG ORAL (16:20)
--- NOTE | 2019-07-16 16:20 | Emergency Room Report ---
History of Present Illness General Chief Complaint: Abdominal Pain Source: Patient Present Illness HPI 89 year old female pmhx of htn, copd, presents with right lower quadrant pain, right flank pain, x3 weeks, patient with dysuria and no fevers, she does endorse chills, no aggravating relieving factors severity is mild, constant patient presents for evaluation. Allergies: Coded Allergies: No Known Allergies (Unverified , 06/22/19) Patient History Past Medical History: see triage record Now: No Reviewed Nursing Documentation: PMH: Agreed; PSxH: Agreed Nursing Documentation-PMH Past Medical History: No History, Except For Hx Hypertension: Yes Hx COPD: Yes Hx Diabetes: Yes Hx Gastrointestinal Problems: Yes - IBS History Of Psychiatric Problem: Yes - SCHIZOPHRENIA Hx Seizures: Yes Hx Peripheral Neuropathy: Yes Hx Weakness: Yes Review of Systems All Other Systems: negative except mentioned in HPI Physical Exam Vital Signs Date Time Temp Pulse Resp B/P (MAP) Pulse Ox O2 Delivery O2 Flow Rate FiO2 07/16/19 16:11 98.6 55 18 135/60 (85) 92 Room Air Sp02 EP Interpretation: reviewed, normal General Appearance: well appearing, no apparent distress, alert Head: normocephalic, atraumatic Eyes: bilateral eye PERRL, bilateral eye EOMI ENT: uvula midline, moist mucus membranes Neck: supple, thyroid normal, supple/symm/no masses Respiratory: lungs clear, no respiratory distress, no retraction, no accessory muscle use Cardiovascular #1: normal peripheral pulses, regular rate, rhythm, no edema, no gallop, no murmur Gastrointestinal: non tender, soft, no guarding, no rebound Musculoskeletal: normal inspection Neurologic: alert, oriented x3 Psychiatric: mood/affect normal Skin: no rash, warm/dry Medical Decision Making Diagnostic Impression: Primary Impression: UTI (urinary tract infection) Qualified Codes: N30.00 - Acute cystitis without hematuria ER Course 89-year-old female presents with dysuria x3 weeks, right flank pain, differential diagnosis includes UTI pyelonephritis appendicitis, UA shows UTI, CT of the pelvis shows no acute processes will provide patient with third-generation cephalosporin disposition back to intermediate Abx in ED Laboratory Tests Test 07/16/19 16:00 07/16/19 16:45 Urine Color Pale yellow Urine Appearance Clear Urine pH 6 (4.5-8.0) Urine Specific [place] 1.010 (1.005-1.035) Urine Protein Negative (NEGATIVE) Urine Glucose (UA) Negative (NEGATIVE) Urine Ketones Negative (NEGATIVE) Urine Blood Negative (NEGATIVE) Urine Nitrite Positive (NEGATIVE) H Urine Bilirubin Negative (NEGATIVE) Urine Urobilinogen Normal MG/DL (0.0-1.0) Urine Leukocyte Esterase 2+ (NEGATIVE) H Urine RBC 0-2 /HPF (0 - 2) Urine WBC 2-4 /HPF (0 - 2) Urine Squamous Epithelial Cells Few /LPF (NONE/OCC) Urine Bacteria Few /HPF (NONE) White Blood Count 6.9 K/UL (4.8-10.8) Red Blood Count 4.49 M/UL (4.20-5.40) Hemoglobin 14.9 G/DL (12.0-16.0) Hematocrit 44.8 % (37.0-47.0) Mean Corpuscular Volume 100 FL (80-99) H Mean Corpuscular Hemoglobin 33.3 PG (27.0-31.0) H Mean Corpuscular Hemoglobin Concent 33.4 G/DL (32.0-36.0) Red Cell Distribution Width 11.0 % (11.6-14.8) L Platelet Count 231 K/UL (150-450) Mean Platelet Volume 5.8 FL (6.5-10.1) L Neutrophils (%) (Auto) 71.1 % (45.0-75.0) Lymphocytes (%) (Auto) 17.6 % (20.0-45.0) L Monocytes (%) (Auto) 7.9 % (1.0-10.0) Eosinophils (%) (Auto) 1.9 % (0.0-3.0) Basophils (%) (Auto) 1.5 % (0.0-2.0) Prothrombin Time 10.0 SEC (9.30-11.50) Prothrombin Time INR 0.9 (0.9-1.1) PTT 26 SEC (23-33) Sodium Level 133 MMOL/L (136-145) L Potassium Level 4.7 MMOL/L (3.5-5.1) Chloride Level 97 MMOL/L (98-107) L Carbon Dioxide Level 31 MMOL/L (21-32) Anion Gap 5 mmol/L (5-15) Blood Urea Nitrogen 23 mg/dL (7-18) H Creatinine 0.8 MG/DL (0.55-1.30) Estimate Glomerular Filtration Rate mL/min (>60) Glucose Level 95 MG/DL (74-106) Calcium Level 10.0 MG/DL (8.5-10.1) Total Bilirubin 0.2 MG/DL (0.2-1.0) Aspartate Amino Transferase (AST) 16 U/L (15-37) Alanine Aminotransferase (ALT) 16 U/L (12-78) Alkaline Phosphatase 91 U/L (46-116) Troponin I 0.000 ng/mL (0.000-0.056) Total Protein 8.8 G/DL (6.4-8.2) H Albumin 3.9 G/DL (3.4-5.0) Globulin 4.9 g/dL Albumin/Globulin Ratio 0.8 (1.0-2.7) L Lipase 93 U/L (73-393) EKG Diagnostic Results EKG Time: 16:43 EP Interpretation: Sinus bradycardia, rate 51, QTc 414, no acute ST elevations , left axis naveen Rhythm Strip Diag. Results Rhythm Strip Time: 19:05 EP Interpretation: yes Rate: 55 Rhythm: other - Sinus bradycardia CT/MRI/US Diagnostic Results CT/MRI/US Diagnostic Results : Impression Patient : AHMET NAVAS Referring Physician: Claudio Vang MD ID Number: [id number] Service Date: 07/16/19 : 1930 Report Date: 07/16/19 Gender: F Accession No.: [id number] Location: EMR Procedure: CT Abdomen Pelvis w/Contrast CT ABDOMEN + PELVIS With Contrast: Cholecystectomy. Nonspecific biliary dilatation may be postsurgical. Aortic atherosclerosis. No abdominal aortic aneurysm. Bowel is nondilated. No free fluid, free air, diverticulitis, or appendicitis. Left renal cortical scar. No hydronephrosis. Dictated By: Terrie Menendez MD Electronically Signed By: Signed Date/Time CC: Last Vital Signs Date Time Temp Pulse Resp B/P (MAP) Pulse Ox O2 Delivery O2 Flow Rate FiO2 07/16/19 16:11 98.6 55 18 135/60 (85) 92 Room Air Disposition: XFER SNF Condition: Stable Scripts Cefdinir (CEFDINIR) 300 Mg Capsule 300 MG PO BID, #20 CAP Prov: Claudio Vang MD 07/16/19 Referrals: Ru Barreto DO Patient Instructions: Urinary Tract Infection, [id number] Additional Instructions: The patient was provided with discharge instructions, notified to follow-up with a primary care doctor and or specialist in the next 24-48 hours, and to return to the ED if they have worsening of their symptoms. Please note that this report is being documented using [employer] technology. This can lead to erroneous entry secondary to incorrect interpretation by the dictating instrument. Claudio Vang MD Jul 16, 2019 16:20
[2019-07-16 16:30] VITALS: BP 134/78
--- NOTE | 2019-07-16 17:00 | NUR ---
ED Nurse Note: Patient BIBA c/o of right abdominal pain and right flank pain 10/10 on pain scale for x2 weeks. Reports dysuria and frequency. Afebrile. Denies chills, N/V. VSS. Will continue to monitor. Patient reports having diarrhea this morning. Will continue to monitor.
--- NOTE | 2019-07-16 17:15 | NUR ---
ED Nurse Note: IV established on RAC 20G, patent and asymptomatic. Patient asleep in bed. Blood and urine collected and sent to lab.
--- NOTE | 2019-07-16 17:18 | NUR ---
Note pablo in EDM - 07/16/19 at 1721 by HCCAITLYNG ED Nurse Note: Pt BIBA C/O of right sided abdominal pain 07/16 for 2 weeks, No N/V but had diarrheadysuria and frequency reported.
[2019-07-16 17:48] LABS: APPEARANCE,URINE CLEAR; BILIRUBIN, URINE NEGATIVE (NEGATIVE); COLOR,URINE PALE YELLOW; GLUCOSE, URINE (UA) NEGATIVE (NEGATIVE); KETONES,URINE NEGATIVE (NEGATIVE); LEUKOCYTE ESTERASE ,URINE 2+ (NEGATIVE); NITRITE,URINE POSITIVE (NEGATIVE); PH,URINE 6 (4.5-8.0); PROTEIN,URINE NEGATIVE (NEGATIVE); UROBILINOGEN,URINE NORMAL MG/DL (0.0-1.0)
[2019-07-16 17:48] LABS: BASOPHILS % (AUTO) 1.5 % (0.0-2.0); EOSINOPHILS % (AUTO) 1.9 % (0.0-3.0); HEMATOCRIT 44.8 % (37.0-47.0); HEMOGLOBIN 14.9 G/DL (12.0-16.0); LYMPHOCYTES % (AUTO) 17.6 % (20.0-45.0); MEAN CORPUSCULAR VOLUME 100 FL (80-99); MONOCYTES % (AUTO) 7.9 % (1.0-10.0); NEUTROPHILS % (AUTO) 71.1 % (45.0-75.0); PLATELET COUNT 231 K/UL (150-450); RED BLOOD COUNT 4.49 M/UL (4.20-5.40); WHITE BLOOD COUNT 6.9 K/UL (4.8-10.8)
[2019-07-16 17:53] LABS: INR 0.9 (0.9-1.1)
[2019-07-16 17:55] LABS: ANION GAP 5 mmol/L (5-15); BLOOD UREA NITROGEN 23 mg/dL (7-18); CARBON DIOXIDE 31 MMOL/L (21-32); CHLORIDE 97 MMOL/L (98-107); CREATININE 0.8 MG/DL (0.55-1.30); POTASSIUM 4.7 MMOL/L (3.5-5.1); SODIUM 133 MMOL/L (136-145)
[2019-07-16 17:59] LABS: ALANINE AMINOTRANSFERASE 16 U/L (12-78); ALBUMIN 3.9 G/DL (3.4-5.0); ALBUMIN/GLOBULIN RATIO 0.8 (1.0-2.7); ALKALINE PHOSPHATASE 91 U/L (46-116); ASPARTATE AMINO TRANSFERASE 16 U/L (15-37); BILIRUBIN,TOTAL 0.2 MG/DL (0.2-1.0)
[2019-07-16 18:30] VITALS: BP 127/54
--- NOTE | 2019-07-16 18:43 | Diagnostic Imaging Report ---
Indication: Abdominal pain Technique: Continuous helical transaxial imaging of the abdomen and pelvis was obtained from the lung bases to the pubic symphysis during intravenous contrast administration. Coronal 2-D reformats were also obtained. Study obtained in a Siemens sensation [address] Automatic Exposure Control was utilized. Total Dose length Product (DLP): [address] Dose Index Volume (CTDIvol): 18 mGy Comparison: None Findings: Cholecystectomy noted. The biliary ducts are prominent. Lung bases are clear. No abnormalities of the liver or spleen or pancreas are identified. Aorta is moderately calcified. Appendix is normal. Bowel gas pattern is nonobstructive. Urinary bladder is mildly dilated. Calcifications of the uterus may be fibroids. There is no free fluid. There is narrowing of intervertebral discs and accompanying endplate osteophyte formation. Hypertrophied facet joints also demonstrated. IMPRESSION: No acute findings. Biliary ductal prominence given age and prior cholecystectomy may be normal. Correlate clinically. Degenerative changes of the spine. Distended urinary bladder Atherosclerotic disease [facility] has communicated the preliminary results to the Emergency Department. Their findings are largely concordant with this report. The CT scanner at [facility] is accredited by the [employer] and the scans are performed using dose optimization techniques as appropriate to a performed exam including Automatic Exposure control.
[2019-07-16] MEDS ORDERED: CEFDINIR300 MG PO (19:07)
--- NOTE | 2019-07-16 19:10 | NUR ---
HAND-OFF: Report given to RAJINDER Guthrie.
[2019-07-16] MEDS ORDERED: Hydromorphone 0.5mg/0.5ml inj IVP ONE (19:45)
[2019-07-16 20:45] VITALS: BP 140/56
--- NOTE | 2019-07-16 20:45 | NUR ---
ER DISCHARGE NOTE: Patient is cleared to be discharged per ERMD, pt is aox4, on room air, with stable vital signs. pt was given dc and prescription instructions, pt was able to verbalize understanding, pt id band and iv site removed without complications. pt took all belongings. Patient transferred by EMT transport, handover given. No complanits of pain. Handoff to nursing cd manufacturing supervisor.
--- NOTE | 2019-07-18 17:35 | Cardiology Report ---
APPROVED REPORT EKG Measurement Heart [id number] Sinus bradycardia Left axis deviation Right bundle branch block Septal infarct, age undetermined Abnormal ECG
== END 2019-07-16 20:45 ==
LOC: EDBD 16:09 → EMR 18:00
DX: N30.00 Acute cystitis without hematuria (principal); I10 Essential (primary) hypertension; J44.9 Chronic obstructive pulmonary disease, unspecified; E11.42 Type 2 diabetes mellitus with diabetic polyneuropathy; K58.9 Irritable bowel syndrome, unspecified; F20.9 Schizophrenia, unspecified; Z90.49 Acquired absence of other specified parts of digestive tract; I70.0 Atherosclerosis of aorta
CPT/HCPCS: 36415; 74177; 80053; 81003; 83690; 84484; 85025; 85610; 85730; 93005; 96365; 96375; 99284; J0696; J1170; Q9967